=== PATIENT | male | born 1950 | race Caucasian/White ===

== ENCOUNTER 2018-05-28 11:02 | Outpatient (CLI) | payer MEDICARE, BC ==
--- NOTE | 2018-05-28 13:48 | MRI ---
MRI THORACIC SPINE WITHOUT CONTRAST: History Bilateral leg weakness. Unable to walk. COMPARISON: None. TECHNIQUE: Thoracic spine MRI is performed without intravenous Gadolinium administration. Multisequential, mult iplanar imaging is performed. FINDINGS: There is evidence of type I and type II Modic changes at multiple levels. Schmorl's nodes are noted. There is minimal spondylolisthesis throughout the thoracic spine. No significant STIR hyperintensi ty to suggest vertebral body edema from fracture. No evidence of ligamentous injury. Visualized mediastinal structures and lung parenchyma are unremarkable. Visualized solid organs are also unremarkable. Conus medullaris terminates at the inferior aspect of T12. There is T2 hyperintensity involving the thoracic cord at the T11-T12 level. Additionally, there is T2 hyperintensity involving the thoracic cord at the T10-T11 level. The remainder of the thoracic co rd has appropriate signal intensity. T1-T2: Small left and right paracentral disk bulges. No significant central canal stenosis. T2-T3, T3-T4: Minimal left and right paracentral disk bulges. No significant central canal stenosis . T4-T5. No significant central canal stenosis. T5-T6: Minimal flattening of the right aspect of the cord due to disk material. T6-T7: No significant central canal stenosis. T7-T8, T8-T9: Mild central canal stenosis due to disk material. T9-T10: Moderate central canal stenosis due to degenerative change. T10-T11: Severe central canal stenosis due to degenerative change. T11-T12, severe central canal st enosis due to degenerative change. T12-L1: No significant central canal stenosis. There is significant foraminal narrowing throughout the thoracic spine. IMPRESSION: Significant central canal stenosis of the thoracic spine at T10-T11 and T11-T12 where there is evide nce of T2 hyperintensity suggesting cord malacia. POS: [facility]
== END 2018-05-28 11:03 | disposition home or self-care (01) ==
LOC: MRI 11:02
PROVIDERS: ATTEND Orthopaedic Surgery
DX: M54.6 Pain in thoracic spine (principal); M48.04 Spinal stenosis, thoracic region
CPT/HCPCS: 72146

== ENCOUNTER 2018-09-12 05:11 | Inpatient (IN) | payer MEDICARE, BC ==
[2018-09-12 06:32] LABS: #Basophils 0.1 thou/uL (0.0-0.2); #Lymphocytes 1.4 thou/uL (1.20-3.40); #Monocytes 1.1 thou/uL (0.11-0.59); #Neutrophils 10.3 thou/uL (1.40-6.50); %Basophils 0.4 % (0.0-1.0); %Eosinophils 0.4 % (0.0-10.0); %Lymphocytes 11.1 % (21.0-51.0); %Monocytes 8.8 % (0.0-10.0); %Neutrophils 79.4 % (42.0-75.0); Hemoglobin 12.5 g/dL (14.0-18.0); Mean Corpuscular HGB CONC 32.5 g/dL (32.0-36.0); Mean Corpuscular Volume 95.2 fL (78.0-98.0); Mean Platelet Volume 6.1 fL (7.4-10.4); Platelet Count 335 thou/uL (130-400); RBC Distribution Width 12.8 % (11.5-14.5); Red Blood Cell (RBC) Count 4.04 mill/uL (4.70-6.10); White Blood Cell (WBC) Count 12.9 thou/uL (4.8-10.8)
[2018-09-12 06:49] LABS: ALT (SGPT) 19 U/L (8-55); AST (SGOT) 22 U/L (5-34); Albumin 4.4 g/dL (3.4-4.8); Alkaline Phosphatase 84 U/L (40-150); Anion Gap 15 mmol/L (10-20); BUN (Urea Nitrogen) 13 mg/dL (8.4-25.7); Bilirubin, Total 0.8 mg/dL (0.2-1.2); Calc. Creatinine Clearance 0 mL/min (70-130); Calcium 9.6 mg/dL (7.8-10.44); Carbon Dioxide 24 mmol/L (23-31); Chloride 100 mmol/L (98-107); Estimated GFR-MDRD 79; Globulin 3.8 g/dL (2.4-3.5); Glucose 126 mg/dL (80-115); Potassium 3.8 mmol/L (3.5-5.1); Protein, Total 8.2 g/dL (5.8-8.1); Sodium 135 mmol/L (136-145)
[2018-09-12 07:32] LABS: Bilirubin Negative (Negative); Blood, Urine Moderate (Negative); Clarity CLOUDY (Clear); Glucose, Urine (Dipstick) Negative (Negative); Leukocyte Large (Negative); Nitrite Positive (Negative); Protein, Urine (Dipstick) 30 mg/dL (Neg-Trace); Specific Gravity, Urine 1.017 (1.002-1.036); pH, Urine 7.5 (5.0-9.0)
[2018-09-12 07:35] LABS: Bacteria/HPF 4+ HPF (None Seen); Hyaline Casts/LPF 0-3 HYALINE CAST LPF (0-3 Hyaline); Pathc Cast-AUWi Flag 0.29 (0-2.49); RBC/HPF 21-50 HPF (0-3); Squamous Epithelial None Seen HPF (0-3)
[2018-09-12] MEDS ORDERED: Acetaminophen 325 MG TAB PO PRN (08:00)
[2018-09-12] MEDS ORDERED: Ondansetron PF 4 MG/2 ML Vial IVP PRN ×2 (08:00→11:39)
[2018-09-12] MEDS ORDERED: Ondansetron ODT 4 MG TAB SL PRN (08:00)
[2018-09-12] MEDS ORDERED: cefTRIAXone\\ROCEPHIN 2 GM VIAL ONE (08:37)
[2018-09-12] MEDS ORDERED: Ketorolac Tromethamine 30 MG/ML VIAL ONE (08:50)
[2018-09-12] MEDS ORDERED: Acetaminophen 500 MG TAB ONE (09:09)
[2018-09-12] MEDS ORDERED: Phenazopyridine HCl 97.5 MG TABLET PO SCH ×2 (09:15→13:00)
[2018-09-12 11:18] LABS: Troponin I 0.011 ng/mL (< 0.028)
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
[2018-09-12] MEDS ORDERED: Dextrose 50% Abboject 50 ML SYRINGE SLOW IVP PRN (11:39)
[2018-09-12] MEDS ORDERED: Sodium Chloride 0.65% Nasal 44 ML BOT EA NARE PRN (11:39)
[2018-09-12] MEDS ORDERED: Dextrose 5% in Water 1,000 ML IV PRN (11:39)
[2018-09-12] MEDS ORDERED: HumaLOG 300 UNITS/3 ML VIAL SC PRN ×2 (11:39)
[2018-09-12] MEDS ORDERED: Bisacodyl 5 MG TAB PO PRN (11:39)
[2018-09-12] MEDS ORDERED: Labetalol HCl 100 MG/20 ML VIAL SLOW IVP PRN (11:39)
[2018-09-12] MEDS ORDERED: Cepastat Lozenges 1 LOZ PO PRN (11:39)
[2018-09-12] MEDS ORDERED: Simethicone Chewable 80 MG TAB PO PRN (11:39)
[2018-09-12] MEDS ORDERED: Senokot S 8.6-50 MG TAB PO PRN (11:39)
[2018-09-12] MEDS ORDERED: Artificial Tears 18 DROP/0.9 ML EA EYE PRN (11:39)
[2018-09-12] MEDS ORDERED: Ondansetron ODT 4 MG TAB PO PRN (11:39)
[2018-09-12] MEDS ORDERED: HYDROcodone/Acetaminophen 5/325 mg Tablet PO PRN ×2 (11:39→13:04)
[2018-09-12] MEDS ORDERED: Calcium Carbonate 500 MG ChewTAB PO PRN (11:39)
[2018-09-12] MEDS ORDERED: Bisacodyl 10 MG SUPP PR PRN (11:39)
[2018-09-12] MEDS ORDERED: Eucerin (Mineral Oil/Petrolatum,White) 30 gm Jar TOP PRN (11:39)
[2018-09-12] MEDS ORDERED: Zolpidem Tartrate 5 MG TAB PO PRN (11:39)
[2018-09-12] MEDS ORDERED: Diabetic Tussin 200 MG/10 ML UDCUP PO PRN (11:39)
[2018-09-12] MEDS: Acetaminophen 325 MG TAB PO PRN (13:58)
[2018-09-12] MEDS ORDERED: Pramipexole Di-HCl 0.125 MG TAB PO SCH ×2 (14:15→21:00)
[2018-09-12] MEDS: Sodium Chloride 0.9% 1,000 ML IV SCH (15:02)
[2018-09-12] MEDS: Phenazopyridine HCl 97.5 MG TABLET PO SCH (16:08)
[2018-09-12] MEDS: HYDROcodone/Acetaminophen 5/325 mg Tablet PO PRN ×2 (16:08→20:50)
[2018-09-12] MEDS: Ibuprofen 200 MG TAB PO PRN (16:08)
[2018-09-12] MEDS: Pramipexole Di-HCl 0.25 MG TAB PO SCH (20:49)
[2018-09-12] MEDS: Atorvastatin Calcium 40 MG TAB PO SCH (20:49)
[2018-09-12] MEDS ORDERED: Cyclobenzaprine 10 MG TAB PO PRN (22:21)
[2018-09-13] MEDS ORDERED: Succinylcholine Chloride 20 MG/ML 10 ml SYRINGE FS ONE (00:03)
[2018-09-13] MEDS ORDERED: Etomidate 20 MG/10 ML VIAL ONE (00:03)
[2018-09-13] MEDS ORDERED: Lorazepam 2 MG/ML VIAL ONE ×2 (00:33→00:51)
[2018-09-13] MEDS: Ibuprofen 200 MG TAB PO PRN (00:40)
[2018-09-13 01:26] LABS: Hemoglobin 12.9 g/dL (14.0-18.0); Mean Corpuscular HGB CONC 32.1 g/dL (32.0-36.0); Mean Corpuscular Hemoglobin 31.5 pg (27.0-31.0); Mean Corpuscular Volume 98.2 fL (78.0-98.0); Mean Platelet Volume 6.7 fL (7.4-10.4); Platelet Count 544 thou/uL (130-400); RBC Distribution Width 13.1 % (11.5-14.5); White Blood Cell (WBC) Count 28.1 thou/uL (4.8-10.8)
[2018-09-13 01:39] LABS: Base Excess (BEa) -5.6 mEq/L (-2.0 to +3.0); CO2 Tension 39.6 mmHg (35.0-45.0); Carboxyhemoglobin (COHb) 0.8 gm% (0.0-3.0); Hemoglobin (Hb) 12.7 g/dL (14.0-18.0); O2 Tension (PaO2) 158.2 mmHg (> 80.0); Potassium - ABG Lab 3.81 mmol/L (3.70-5.30); pH, Arterial 7.32 (7.35-7.45)
[2018-09-13 01:43] LABS: Band 9 % (5-11); Hypochromia SLIGHT = 6-15 cells (100X) (0-5/hpf); Lymphocytes 17 % (21-51); MDiff Complete? YES; Monocytes 13 % (0-10); Neutrophil 61 % (42-75); PLT Morphology Comment Appears Increased
[2018-09-13 01:45] LABS: Puncture Site FEMORAL
[2018-09-13] MEDS ORDERED: Fentanyl BOLUS 250 ML IVPB PRN (01:51)
[2018-09-13] MEDS ORDERED: DISCONTINUE PREVIOUS NARCOTIC PAIN MEDICATIONS AND BENZODIAZEPINES FS SCH (01:51)
[2018-09-13] MEDS ORDERED: Propofol BOLUS 1,000 MG/100 ML VIAL IV PRN (01:51)
--- NOTE | 2018-09-13 01:55 | PDOC.EVN ---
Event Note - Event Note Event Note: Attending Critical Care Note Called to [facility] room by code blue alarm. Found team at bedside, bag-mask ventilation of patient. Monitors showing sinue tachycardia, and elevated blood pressure. Patient appeared to be having Generalized seizure. 2mg Ativan given IM. Patient breathing but unresponsive to commands or pain. RSI initiated. After a failed intubation attempt byDr Grande, Dr Cheatham was sucessful placement of ET tube via glidoscope. Placement confirmed with bilateral breath sounds, CO2 colorimic change. Sofiya cervantessferred to CCU. CXR viewed to confirm position of ET tube. [facility] Hospitalist Attending was present and providing care. See resident note Total Time approximately 30 min (~[id number]). See resident physician note/code record for further details.
[2018-09-13] MEDS ORDERED: Multivitamins, Adult 10 ML, Thiamine HCl 100 MG, Folic Acid 1 MG in Dextrose 5 %-0.45 %... IV SCH (02:00)
[2018-09-13] MEDS ORDERED: levETIRAcetam In NaCl (Iso-Os) 1,000 MG in Premix Bag 1 BAG IVPB SCH ×2 (02:00)
[2018-09-13 02:02] LABS: Albumin 4.3 g/dL (3.4-4.8)
[2018-09-13 02:03] LABS: Chloride 100 mmol/L (98-107); Potassium 3.8 mmol/L (3.5-5.1); Sodium 136 mmol/L (136-145)
[2018-09-13 02:04] LABS: Calcium 9.3 mg/dL (7.8-10.44); Magnesium 1.5 mg/dL (1.6-2.6)
[2018-09-13 02:05] LABS: Globulin 4.1 g/dL (2.4-3.5); Glucose 163 mg/dL (80-115); Protein, Total 8.4 g/dL (5.8-8.1)
[2018-09-13 02:06] LABS: Anion Gap 23 mmol/L (10-20); Carbon Dioxide 17 mmol/L (23-31)
[2018-09-13 02:07] LABS: Bilirubin, Total 0.6 mg/dL (0.2-1.2)
[2018-09-13 02:08] LABS: Alkaline Phosphatase 84 U/L (40-150)
[2018-09-13 02:09] LABS: BUN (Urea Nitrogen) 22 mg/dL (8.4-25.7)
[2018-09-13] MEDS: fentaNYL Citrate/PF 2,000 MCG in Sodium Chloride 0.9% 60 ML IV SCH ×2 (02:09→20:08)
[2018-09-13 02:10] LABS: AST (SGOT) 40 U/L (5-34)
[2018-09-13] MEDS: Sodium Chloride 0.9% 1,000 ML IV SCH ×5 (02:10→19:11)
[2018-09-13 02:11] LABS: Band 9 % (5-11); Hemoglobin 12.5 g/dL (14.0-18.0); Hypochromia SLIGHT = 6-15 cells (100X) (0-5/hpf); Lymphocytes 8 % (21-51); MDiff Complete? YES; Mean Corpuscular HGB CONC 32.5 g/dL (32.0-36.0); Mean Corpuscular Hemoglobin 31.4 pg (27.0-31.0); Mean Corpuscular Volume 96.7 fL (78.0-98.0); Monocytes 4 % (0-10); Neutrophil 79 % (42-75); PLT Morphology Comment Appears Increased; Platelet Count 507 thou/uL (130-400); RBC Distribution Width 12.9 % (11.5-14.5); Red Blood Cell (RBC) Count 3.98 mill/uL (4.70-6.10); White Blood Cell (WBC) Count 19.1 thou/uL (4.8-10.8)
[2018-09-13 02:11] LABS: ALT (SGPT) 25 U/L (8-55); Calc. Creatinine Clearance 71 mL/min (70-130); Estimated GFR-MDRD 44
[2018-09-13] MEDS ORDERED: Sodium Chloride 0.9% 1,000 ML IV SCH (02:30)
[2018-09-13] MEDS: Acetaminophen 1,000 MG in Premix Bag 1 BAG IVPB PRN ×2 (02:39→23:18)
[2018-09-13] MEDS: Propofol 1,000 MG/100 ML VIAL IV PRN ×3 (02:45→17:42)
[2018-09-13] MEDS: Vancomycin HCl 1.75 GM in Sodium Chloride 0.9% 500 ML IVPB SCH ×2 (02:46→15:10)
[2018-09-13 02:47] LABS: Lactic Acid 12.5 mmol/L (0.5-2.2)
--- NOTE | 2018-09-13 02:54 | PDOC.EVN ---
Event Note - Event Note Event Note: Yoselin wang was called @ ~12:46Am Patient is admitted for sepsis due to UTI Upon arrival family medicine team is there and patient is being bagged for intubation. Per nursing staff patient was not breathing right and thinks that patient was having withdrawal seizures. Nurse states that CPR was initiated. But " NO one knows if code was run" We dont know how long CPR was performed, who stopped CPR and if any medication was given. Per Family med attending patient was in respiratory failure needing intubation so they intubated and I took over from there. On evaluation: patient has a pulse. in respiratory failure and being bagged for intubation. Vitals: BP >175 systolic. Sinus tachy. Glucose is 140's per verbal report. Assessment/plan. 1. Get stat ABG 2. Stat trops 3. cultures 4. Keppra 5. neuro checks, seizure checks 6. Central line then start levophed if BP is less than 90 systolic 7. NS IV fluids 8. tylenol 9. Consult ICU sql server consultant, consult cardiology 10. Echo ordered 11. Get CT of head when patient is stable and follow up stat labs in the AM 13. sedation protocol. Hold propofol when MAP is less than 55. Follow up events: I still don't have troponins, lactic acid and time is (2:56am) . I have obtained EKG which shows sinus tachy without any ischemic changes at this time. WBC is back and shows leukocytosis. Patient Temp is 103. ABG performed showed: ph 7.3, pco2 39.6 p02 158.2 critical care time ~ 80mins
--- NOTE | 2018-09-13 03:03 | PDOC.CNTRL ---
<Alvaro Grande - Last Filed: 09/13/18 03:01> Central Line Procedure Note - Procedure Date: 09/13/18 Time: 02:30 - PreProcedure Diagnosis: Sepsis secondary to UTI - PostProcedure Diagnosis: Sepsis secondary to UTI - Description Focused site: femoral vein: Right Ultrasound guidance: Yes Patient tolerated procedure: well Procedure in Details: INDICATION: hypotension PROCEDURE ABLE SEAMAN: Alvaro Grande MD, Yossi Morelos MD ATTENDING PHYSICIAN: Kings Mari MD was present, supervised, and assisted in procedure Ultrasound Used: Y PROCEDURE SUMMARY: The [facility] Central Line Insertion Practices form was completed by an independent observer (Tamy Grande Neal) starting with the first handwash prior to starting sterile technique. A time out was performed. My hands were washed immediately prior to the procedure. I wore a surgical cap, mask, sterile gown and sterile gloves throughout the procedure. The RIGHT inguinal region was prepped using chlorhexidine scrub and draped in sterile fashion using a three quarter sheet drape. The femoral pulse was identified. Anesthesia was achieved using 1% lidocaine. Palpating the femoral pulse throughout the procedure, the introducer needle was inserted Medial to the femoral artery, inferior to the inguinal crease and into the Femoral vein. Venous blood was withdrawn. The syringe was removed and a guidewire was advanced into the introducer needle. A small incision was made at the skin surface with a scalpel and the introducer needle was exchanged for a dilator over the guidewire. After appropriate dilation was obtained, the dilator was exchanged over the wire for a triple lumen central venous catheter. The wire was removed and the catheter was sutured in place. A sterile sorbaview shield was placed over the catheter at the insertion site. The patient tolerated the procedure without any hemodynamic compromise. At time of procedure completion, all ports aspirated and flushed properly. Estimated blood loss is 3ml. <Kings Mari - Last Filed: 09/13/18 09:04> Attending Addendum - Attending Addendum Date/Time: 09/13/18 0904 Anesthesia was achieved by propofol, fentanyl, in addition to the lidocaine.
--- NOTE | 2018-09-13 03:50 | PDOC.EVN ---
Event Note - Event Note Event Note: CODE BLUE NOTE Code Atul called to patient's room at 00:46 due to patient being apneic and pulseless with suspected seizure activity. Residents arrived to room at 00:50 with chest compressions in progress. Patient then became aroused and appeared to have seizure like activity. However, patient was given Ativan IM due to suspected alcohol withdrawal seizures and was unable to protect his airway with agonal breathing. It as then decided to intubate the patient for airway protection. 1st attempt by Dr. Marco Antonio Grande was unsuccessful with the glydescope. 1st attempt by myself was successful with glydescope. Size 8 ET tube was secured in place at position of 24 cm at the teeth. Placement confirmed by color capnography change, bilateral breath sounds. Confirmatory CXR was taken and showed adequate placement. Patient was then immediately transferred to the ICU for higher level of care management. Please refer to procedure note below as well as full code record for further information. INDICATION: Respiratory Distress without ability to maintain airway PROCEDURE MEDIA ACCOUNT EXECUTIVE: Yossi Morelos MD ATTENDING PHYSICIAN: Dr. Kings Mari In Attendance CONSENT: Consent was unable to be obtained due to the emergent nature. PROCEDURE SUMMARY: A time out was performed. My hands were washed immediately prior to the procedure. Gloves were worn during the entire procedure. The patient was placed on a ekg monitor including continuous pulse oximetry. Rapid Sequence Intubation was conducted. The patient received 10 mg of etomidate and 100 mg of succinylcholine for adequate paralysis. Cricoid pressure was maintained from time induction agent was given to time of cuff balloon inflation. Using a glidescope and a size 8 endotracheal tube with stylet, the patient was intubated on the 1st attempt by myself. The stylet was removed and cuff balloon was inflated. Appropriate endotracheal tube position was confirmed by direct visualization of vocal cord passage, fogging of the tube, CO2 colometric indicator and symmetric breath sounds. The tube was secured at 24 cm at the teeth. Post intubation chest x-ray confirms placement within trachea.
[2018-09-13 05:44] LABS: Lactic Acid 1.1 mmol/L (0.5-2.2)
[2018-09-13] MEDS ORDERED: Magnesium Sulfate 3 GM in Sodium Chloride 0.9% 100 ML IVPB SCH (06:45)
[2018-09-13] MEDS: Piperacillin/Tazobactam 3.375 GM in Sodium Chloride 0.9% 100 ML IVPB SCH ×3 (07:06→17:41)
[2018-09-13] MEDS ORDERED: Furosemide 40 MG TAB PO SCH (07:30)
--- NOTE | 2018-09-13 07:55 | RAD ---
PRELIMINARY REPORT/[facility]/EMERGENTY AFTER-HOURS PROCEDURE XR Chest, 1 View EXAM DATE/TIME: 09/13/2018 12:16 AM CLINICAL HISTORY: 68 years old, male; SOB; Respiratory distress; S/P intubation TECHNIQUE: XR of the chest, 1 view. COMPARISON: No relevant prior studies available. FINDINGS: Tubes, catheters and devices: Tip of endotracheal tube located approximately 3.5 cm above the fady. Nasogastric tube enters the stomach but tip not included on the image. Lungs: No alveolar infiltrate. Pleural space: No pleural fluid collection. Heart/Mediastinum: Expiratory film with transverse orientation of the cardiac silhouette. Bones/joints: Unremarkable. IMPRESSION: 1. No alveolar infiltrate. 2. Tip of endotracheal tube located approximately 3.5 cm above the fady. Thank you for allowing us to participate in the care of your patient. Dictated and Authenticated by: Gavin Hyman MD 09/13/2018 1:59 AM Central Time ([place] & [place]) AP VIEW CHEST: Date: 09/13/18 COMPARISON: 09/01/18. FINDINGS: AP view of chest demonstrates nasogastric and endotracheal tubes to be in place. There is suboptimal inspiratory effort. Cardiomegaly and pulmonary vascular congestion seen. No evidence of effusions, pn eumonia, or pneumothorax seen. IMPRESSION: 1. Suboptimal inspiratory effort. 2. Endotracheal tube in good position. QA POS: [facility]
[2018-09-13] MEDS ORDERED: metFORMIN 500 MG TAB PO SCH (08:00)
[2018-09-13] MEDS: Pantoprazole 40 MG VIAL IVP SCH (08:55)
[2018-09-13] MEDS: Phenazopyridine HCl 97.5 MG TABLET PO SCH ×3 (08:56→17:44)
[2018-09-13] MEDS: Ezetimibe 10 MG TAB PO SCH (08:57)
[2018-09-13] MEDS: Pramipexole Di-HCl 0.25 MG TAB PO SCH ×2 (08:57→21:00)
[2018-09-13] MEDS: Saccharomyces boulardii 250 MG CAP PO SCH (08:57)
[2018-09-13] MEDS: Fish Oil 1,000 MG CAP PO SCH (08:57)
[2018-09-13] MEDS: Tamsulosin HCl 0.4 MG CAP PO SCH (08:57)
[2018-09-13] MEDS: Finasteride 5 MG TAB PO SCH (08:57)
[2018-09-13] MEDS: Polyethylene Glycol 3350 17 GM Packet PO SCH (08:58)
--- NOTE | 2018-09-13 08:58 | RAD ---
CHEST ONE VIEW PORTABLE: History: 68-year-old male with history of respiratory insuffiency. Intubated patient. Comparison: 09-13-18 FINDINGS: Endotracheal tube has descended into the right mainstem bronchus and should probably be pulled back s everal centimeters to enter the trachea. NG tube is in place. There is cardiomegaly. There is some bi lateral vascular congestion with linear and interstitial parenchymal changes in the right upper perih ilar region and left lower perihilar region, these parenchymal changes appear stable. IMPRESSION: Endotracheal tube in the right mainstem bronchus. This should be pulled back approximately 4 cm to mo re optimally enter the distal trachea. Stable linear and parenchymal changes, particularly in the rig ht suprahilar region and left infrahilar region with bilateral vascular congestion. Findings were discussed with nurse, Humaira, at 8:43 a.m. Yoselin FRANK
[2018-09-13] MEDS ORDERED: cefTRIAXone\\ROCEPHIN 2 GM in Sodium Chloride 0.9% 100 ML IVPB SCH (09:00)
[2018-09-13] MEDS ORDERED: Amlodipine 5 MG TAB PO SCH (09:00)
[2018-09-13] MEDS: Enoxaparin Sodium 40 MG/0.4 ML SYRINGE SC SCH ×2 (09:00→09:37)
[2018-09-13] MEDS: Oxybutynin 5 MG TAB PO SCH (09:09)
[2018-09-13 09:24] LABS: Troponin I 0.508 ng/mL (< 0.028)
--- NOTE | 2018-09-13 09:33 | PDOC.PN ---
- Subjective Encounter Start Date: 09/13/18 Encounter Start Time: 09:00 -: old records requested/rev last night pt had seizure, code blue was called, he required intubation, his BP is now low, he is on vent - Objective Resuscitation Status: Resuscitation Status FULL:Full Resuscitation MAR Reviewed: Yes Vital Signs & Weight: Vital Signs (12 hours) Temp Pulse Resp Pulse Ox 09/13/18 08:00 17 09/13/18 07:47 93 L 09/13/18 07:05 60 09/13/18 07:00 98.5 F 09/13/18 06:00 20 09/13/18 04:00 98.4 F 17 09/13/18 02:00 103.3 F H 09/13/18 01:45 16 100 09/13/18 01:15 78 Weight Admit Weight 244 lb 0.827 oz Weight 244 lb 3 oz Most Recent Monitor Data Heart Rate from ECG 67 NIBP 89/75 NIBP BP-Mean 79 Respiration from ECG 21 SpO2 94 I&O: 09/12/18 09/13/18 09/14/18 06:59 06:59 06:59 Intake Total 6165.0 Output Total 990 35 Balance 5175.0 -35 Result Diagrams: 09/13/18 01:43 09/13/18 01:40 Additional Labs: Accuchecks 09/13/18 09/12/18 09/12/18 00:47 20:32 17:09 POC Glucose 105 119 H 114 H 09/12/18 12:11 POC Glucose 122 H Radiology Reviewed by me: Yes (chest xray reviewed) EKG Reviewed by me: Yes (nsr) Phys Exam - Physical Examination Constitutional: NAD intubated HEENT: PERRLA, moist MMs, sclera anicteric Neck: no JVD, supple Respiratory: no wheezing, no rales, no rhonchi Cardiovascular: RRR, no significant murmur, no rub Gastrointestinal: soft, no distention, positive bowel sounds Musculoskeletal: no edema, pulses present scd+ unable to assess Lymphatic: no nodes Deviation from normal: unable to assess due to intubated status Skin: no rash, normal turgor Dx/Plan (1) Acute respiratory failure with hypoxia Code(s): J96.01 - ACUTE RESPIRATORY FAILURE WITH HYPOXIA Status: Acute (2) Acute kidney failure Status: Acute (3) Demand ischemia of myocardium Code(s): I24.8 - OTHER FORMS OF ACUTE ISCHEMIC HEART DISEASE Status: Acute (4) Hypomagnesemia Code(s): E83.42 - HYPOMAGNESEMIA Status: Acute (5) Lactic acidosis Code(s): E87.2 - ACIDOSIS Status: Acute (6) Seizure Code(s): R56.9 - UNSPECIFIED CONVULSIONS Status: Acute (7) Sepsis with acute organ dysfunction Code(s): A41.9 - SEPSIS, UNSPECIFIED ORGANISM; R65.20 - SEVERE SEPSIS WITHOUT SEPTIC SHOCK Status: Acute (8) UTI (urinary tract infection) due to urinary indwelling catheter Code(s): T83.511A - I/I REACT D/T INDWELLING URETHRAL CATHETER, INIT; N39.0 - URINARY TRACT INFECTION, SITE NOT SPECIFIED Status: Acute (9) Alcohol abuse Code(s): F10.10 - ALCOHOL ABUSE, UNCOMPLICATED Status: Chronic (10) Anxiety and depression Code(s): F41.9 - ANXIETY DISORDER, UNSPECIFIED; F32.9 - MAJOR DEPRESSIVE DISORDER, SINGLE EPISODE, UNSPECIFIED Status: Chronic (11) Diabetes type 2, controlled Code(s): E11.9 - TYPE 2 DIABETES MELLITUS WITHOUT COMPLICATIONS Status: Chronic (12) Dyslipidemia Code(s): E78.5 - HYPERLIPIDEMIA, UNSPECIFIED Status: Chronic (13) Hypertension Code(s): I10 - ESSENTIAL (PRIMARY) HYPERTENSION Status: Chronic (14) Obesity (BMI 30.0-34.9) Code(s): E66.9 - OBESITY, UNSPECIFIED Status: Chronic (15) Restless leg syndrome Status: Chronic (16) Urinary retention due to benign prostatic hyperplasia Code(s): N40.1 - BENIGN PROSTATIC HYPERPLASIA WITH LOWER URINARY TRACT SYMP; R33.8 - OTHER RETENTION OF URINE Status: Chronic - Plan cont current plan of care, continue antibiotics, respiratory therapy * ventilator management as per pulmonary * continue vancomycin and zosyn * follow up on culture * cardiology, pulmonary on case * medication reviewed as below * symptomatic treatment. * continue Keppra * continue IVF * replace magnesium sulfate Review of Systems - Review of Systems Other: unable to review due to intubated status - Medications/Allergies Allergies/Adverse Reactions: Allergies Allergy/AdvReac Type Severity Reaction Status Date / Time tramadol Allergy Verified 09/12/18 13:29 Medications: Current Medications Acetaminophen (Tylenol) 650 mg PO Q4H PRN PRN Reason: Headache/Fever/Mild Pain (1-3) Last Admin: 09/12/18 13:58 Dose: 650 mg Hydrocodone Bitart/Acetaminophen ([place] 5/325) 1 tab PO Q4H PRN PRN Reason: Moderate Pain (4-6) Hydrocodone Bitart/Acetaminophen ([place] 5/325) 2 tab PO Q4H PRN PRN Reason: Severe Pain (7-10) Last Admin: 09/12/18 20:50 Dose: 2 tab Artificial Tears (Tears Naturale) 2 drop EA EYE PRN PRN PRN Reason: Dry Eyes Aspirin (Aspirin Chewable) 81 mg PO DAILY [facility] Last Admin: 09/13/18 08:57 Dose: Not Given Atorvastatin Calcium (Lipitor) 40 mg PO HS [facility] Last Admin: 09/12/18 20:49 Dose: 40 mg Bisacodyl (Dulcolax) 10 mg CO DAILYPRN PRN PRN Reason: Constipation Calcium Carbonate (Tums) 1,000 mg PO Q4H PRN PRN Reason: Heartburn or Indigestion Cyclobenzaprine HCl (Flexeril) 10 mg PO TIDPRN PRN PRN Reason: Muscle Spasm Last Admin: 09/12/18 22:25 Dose: 10 mg Dextrose/Water (Dextrose 50%) 25 gm SLOW IVP PRN PRN PRN Reason: Hypoglycemia Ezetimibe (Zetia) 10 mg PO DAILY [facility] Last Admin: 09/13/18 08:57 Dose: 10 mg Enoxaparin Sodium (Lovenox) 40 mg SC 0900 [facility] Last Admin: 09/13/18 09:00 Dose: Not Given Finasteride (Proscar) 5 mg PO DAILY [facility] Last Admin: 09/13/18 08:57 Dose: 5 mg Fish Oil (Fish Oil) 1,000 mg PO DAILY [facility] Last Admin: 09/13/18 08:57 Dose: 1,000 mg Glucagon (Glucagon) 1 mg IM PRN PRN PRN Reason: Hypoglycemia Guaifenesin (Robitussin Sf) 200 mg PO Q4H PRN PRN Reason: Cough Hydralazine HCl (Apresoline) 10 mg SLOW IVP Q4H PRN PRN Reason: SBP > 180 and HR < 70 Dextrose/Water (D5w) 1,000 mls @ 0 mls/hr IV .Q0M PRN PRN Reason: Hypoglycemia Multivitamins 10 ml/ Thiamine HCl 100 mg/ Folic Acid 1 mg/Dextrose/Sodium Chloride 1,011.2 mls @ 126.4 mls/hr IV DAILY [facility] Multivitamins 10 ml/ Thiamine HCl 100 mg/ Folic Acid 1 mg/Dextrose/Sodium Chloride 1,011.2 mls @ 126.4 mls/hr IV NOW [facility] Stop: 09/13/18 09:59 Last Admin: 09/13/18 02:39 Dose: 1,011.2 mls Piperacillin Sod/Tazobactam (Sod 3.375 gm/ Sodium Chloride) 100 mls @ 200 mls/ hr IVPB Q6HR [facility] Last Admin: 09/13/18 07:06 Dose: 100 mls Vancomycin HCl 1.75 gm/ Sodium (Chloride) 500 mls @ 250 mls/hr IVPB 0300,1500 [facility] Last Admin: 09/13/18 02:46 Dose: 500 mls Acetaminophen 1,000 mg/ Device 100 mls @ 400 mls/hr IVPB Q6H PRN PRN Reason: Fever > 101 Stop: 09/14/18 01:34 Last Admin: 09/13/18 02:39 Dose: 100 mls Levetiracetam 500 mg/ Device 100 mls @ 200 mls/hr IVPB BID [facility] Last Admin: 09/13/18 09:02 Dose: 100 mls Fentanyl Citrate 2,000 mcg/ (Sodium Chloride) 100 mls @ 0 mls/hr IV INF [facility]; Protocol Stop: 10/13/18 01:51 Last Admin: 09/13/18 02:09 Dose: 100 mls Fentanyl Citrate (Fentanyl Bolus) 250 mls @ 0 mls/hr IVPB PRN PRN PRN Reason: Breakthrough pain/agitation Stop: 10/13/18 01:51 Sodium Chloride (Normal Saline 0.9%) 1,000 mls @ 100 mls/hr IV .Q10H [facility] Last Admin: 09/13/18 07:41 Dose: 1,000 mls Magnesium Sulfate 3 gm/ Sodium (Chloride) 106 mls @ 100 mls/hr IVPB NOW [facility] Stop: 09/13/18 11:00 Last Admin: 09/13/18 07:40 Dose: 106 mls Insulin Human Lispro (Humalog) 0 units SC .MODERATE SLIDING SC PRN PRN Reason: Moderate Correctional Scale Insulin Human Lispro (Humalog) 0 units SC .BEDTIME SLIDING SC PRN PRN Reason: Bedtime Correctional Scale Labetalol HCl (Normodyne) 20 mg SLOW IVP Q4H PRN PRN Reason: SBP > 180 and HR >/= 70 Loperamide HCl (Imodium) 2 mg PO PRN PRN PRN Reason: Diarrhea/Loose Stools Lorazepam (Ativan) 2 mg SLOW IVP Q2H PRN PRN Reason: Anxiety/Agitation Lorazepam (Ativan) 2 mg SLOW IVP Q1H PRN PRN Reason: Breakthrough agitation Stop: 10/13/18 01:51 Mineral Oil/White Petrolatum (Eucerin Cream) 0 gm TOP BIDPRN PRN PRN Reason: Dry Skin Miscellaneous Medication (Pharmacy To Dose) 0 each IVPB PRN PRN PRN Reason: [facility] Pharmacy to Dose Discontinue Previous Narcotic Pain Medications And Benzodiazepines 1 each FS .ONE [facility] Stop: 10/13/18 01:51 Ondansetron HCl (Zofran Odt) 4 mg PO Q6H PRN PRN Reason: Nausea/Vomiting Ondansetron HCl (Zofran) 4 mg IVP Q6H PRN PRN Reason: Nausea/Vomiting Oxybutynin Chloride (Ditropan) 5 mg PO DAILY [facility] Last Admin: 09/13/18 09:09 Dose: 5 mg Pantoprazole Sodium (Protonix) 40 mg IVP DAILY [facility] Last Admin: 09/13/18 08:55 Dose: 40 mg Phenazopyridine HCl (Azo Standard) 195 mg PO [facility] Last Admin: 09/13/18 08:56 Dose: 195 mg Polyethylene Glycol (Miralax) 17 gm PO DAILY [facility] Last Admin: 09/13/18 08:58 Dose: Not Given Pramipexole Dihydrochloride (Mirapex) 0.25 mg PO BID [facility] Last Admin: 09/13/18 08:57 Dose: 0.25 mg Propofol (Diprivan) 1,000 mg IV INF PRN; Protocol PRN Reason: TO ACHIEVE GOAL RASS Stop: 10/13/18 01:51 Last Admin: 09/13/18 08:55 Dose: 1,000 mg Propofol (Diprivan Bolus) 20 mg IV Q5MIN PRN PRN Reason: BREAKTHROUGH AGITATION Stop: 10/13/18 01:51 Saccharomyces Boulardii (Florastor) 250 mg PO DAILY [facility] Last Admin: 09/13/18 08:57 Dose: 250 mg Senna/Docusate Sodium (Senokot S) 2 tab PO BID PRN PRN Reason: Constipation Simethicone (Mylicon Chewable) 80 mg PO PCHS PRN PRN Reason: Gas Pain Sodium Chloride ([place] Nasal [place] 0.65%) 0 ml EA NARE QIDPRN PRN PRN Reason: Nasal Congestion Sodium Chloride (Flush - Normal Saline) 10 ml IVF Q12HR [facility] Last Admin: 09/13/18 08:58 Dose: 10 ml Sodium Chloride (Flush - Normal Saline) 10 ml IVF PRN PRN PRN Reason: Saline Flush Tamsulosin HCl (Flomax) 0.4 mg PO DAILY [facility] Last Admin: 09/13/18 08:57 Dose: 0.4 mg Throat Lozenges (Cepastat Lozenges) 1 john PO Q2H PRN PRN Reason: Sore Throat
[2018-09-13] MEDS: Lorazepam 2 MG/ML VIAL SLOW IVP PRN ×4 (10:40→23:22)
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
--- NOTE | 2018-09-13 17:34 | CT ---
HEAD CT WITHOUT CONTRAST: Date: 09/13/18 HISTORY: Possible seizure. Dragging right leg. Aphasia. COMPARISON: None. FINDINGS: No parenchymal hemorrhage. No extra-axial hematoma. No midline shift. Basilar cisterns are patent. Br ain volume, age-appropriate. Cortical anderson-white matter differentiation preserved. No evidence of hyd rocephalus. Mild mucosal thickening in the paranasal sinuses. Adequate mastoid air cell aeration. Luis M varium is intact. IMPRESSION: No acute intracranial process. POS: [facility]
[2018-09-13] MEDS: Atorvastatin Calcium 40 MG TAB PO SCH (21:00)
[2018-09-14] MEDS ORDERED: Vecuronium 10 MG VIAL ONE (01:08)
[2018-09-14] MEDS ORDERED: Sterile Water 10 ML ONE (01:08)
[2018-09-14 02:43] LABS: Actual Bicarbonate (HCO3a) 20.9 mEq/L (22-28); Base Excess (BEa) -4.4 mEq/L (-2.0 to +3.0); CO2 Tension 39.4 mmHg (35.0-45.0); O2 Tension (PaO2) 63.4 mmHg (> 80.0); pH, Arterial 7.34 (7.35-7.45)
[2018-09-14 02:44] LABS: Calcium, Ionized 1.12 mmol/L (1.12-1.30); Carboxyhemoglobin (COHb) 0.8 gm% (0.0-3.0); Hemoglobin (Hb) 10.7 g/dL (14.0-18.0); Potassium - ABG Lab 3.16 mmol/L (3.70-5.30)
[2018-09-14 02:45] LABS: Puncture Site L FEMORAL
[2018-09-14] MEDS: Vancomycin HCl 1.75 GM in Sodium Chloride 0.9% 500 ML IVPB SCH ×2 (03:57→15:32)
[2018-09-14] MEDS: Sodium Chloride 0.9% 1,000 ML IV SCH ×2 (04:04→13:56)
[2018-09-14] MEDS: Piperacillin/Tazobactam 3.375 GM in Sodium Chloride 0.9% 100 ML IVPB SCH ×4 (05:05→17:33)
[2018-09-14 05:51] LABS: #Basophils 0.1 thou/uL (0.0-0.2); #Eosinphils 0.1 thou/uL (0.0-0.7); #Lymphocytes 2.2 thou/uL (1.20-3.40); #Monocytes 1.7 thou/uL (0.11-0.59); #Neutrophils 10.3 thou/uL (1.40-6.50); %Basophils 0.4 % (0.0-1.0); %Eosinophils 0.5 % (0.0-10.0); %Lymphocytes 15.3 % (21.0-51.0); %Neutrophils 71.9 % (42.0-75.0); Hemoglobin 9.8 g/dL (14.0-18.0); Mean Corpuscular HGB CONC 31.4 g/dL (32.0-36.0); Mean Corpuscular Hemoglobin 30.7 pg (27.0-31.0); Mean Corpuscular Volume 97.7 fL (78.0-98.0); Mean Platelet Volume 6.7 fL (7.4-10.4); Platelet Count 395 thou/uL (130-400); RBC Distribution Width 13.4 % (11.5-14.5); White Blood Cell (WBC) Count 14.3 thou/uL (4.8-10.8)
[2018-09-14 06:24] LABS: Anion Gap 15 mmol/L (10-20); BUN (Urea Nitrogen) 32 mg/dL (8.4-25.7); Calc. Creatinine Clearance 69 mL/min (70-130); Calcium 8.4 mg/dL (7.8-10.44); Carbon Dioxide 19 mmol/L (23-31); Chloride 107 mmol/L (98-107); Estimated GFR-MDRD 40; Glucose 93 mg/dL (80-115); Potassium 3.3 mmol/L (3.5-5.1); Sodium 138 mmol/L (136-145)
[2018-09-14] MEDS ORDERED: CCU Electrolyte Replacement 1 EACH FS ONE (07:57)
[2018-09-14] MEDS ORDERED: Potassium Phosphate 9 MMOL in Sodium Chloride 0.9% 100 ML IVPB PRN (08:11)
[2018-09-14] MEDS ORDERED: Potassium Chloride 20 MEQ TAB PO PRN (08:11)
[2018-09-14] MEDS ORDERED: Potassium Phosphate 12 MMOL in Sodium Chloride 0.9% 250 ML 250 ML IV PRN (08:11)
[2018-09-14] MEDS ORDERED: Magnesium Oxide 400 MG TAB PO PRN ×2 (08:11)
[2018-09-14] MEDS ORDERED: Magnesium 2 GM/NS 0.9% 100 ML 2 GM in Premix Bag 1 BAG IVPB PRN (08:11)
[2018-09-14] MEDS ORDERED: Potassium Chloride 40 MEQ in Sodium Chloride 0.9% 250 ML 250 ML IVPB PRN (08:11)
[2018-09-14] MEDS ORDERED: Potassium Phosphate 15 MMOL in Sodium Chloride 0.9% 250 ML 250 ML IV PRN (08:11)
[2018-09-14] MEDS: Enoxaparin Sodium 40 MG/0.4 ML SYRINGE SC SCH (08:50)
[2018-09-14] MEDS: Ezetimibe 10 MG TAB PO SCH (08:51)
[2018-09-14] MEDS: Saccharomyces boulardii 250 MG CAP PO SCH (08:51)
[2018-09-14] MEDS: Tamsulosin HCl 0.4 MG CAP PO SCH (08:51)
[2018-09-14] MEDS: Phenazopyridine HCl 97.5 MG TABLET PO SCH ×3 (08:51→17:33)
[2018-09-14] MEDS: Finasteride 5 MG TAB PO SCH (08:51)
[2018-09-14] MEDS: Pramipexole Di-HCl 0.25 MG TAB PO SCH ×2 (08:51→21:12)
[2018-09-14] MEDS: Fish Oil 1,000 MG CAP PO SCH (08:51)
[2018-09-14] MEDS: Oxybutynin 5 MG TAB PO SCH (08:52)
[2018-09-14] MEDS: Pantoprazole 40 MG VIAL IVP SCH (09:03)
[2018-09-14] MEDS: Polyethylene Glycol 3350 17 GM Packet PO SCH (09:04)
--- NOTE | 2018-09-14 09:04 | PRG ---
DATE OF SERVICE: 09/14/2018 SUBJECTIVE: . PHYSICAL EXAMINATION: VITAL SIGNS: T-max of 100.4, pulse 61, blood pressure 132/67. . ASSESSMENT: . PLAN: 1. Continue piperacillin and vancomycin. 2. Not weanable at this time. 3. Replace potassium. 4. Continue other supportive care.
--- NOTE | 2018-09-14 09:16 | PDOC.PN ---
- Subjective Encounter Start Date: 09/14/18 Encounter Start Time: 09:00 Intubated. Nurse indicates he self-extubated last night. Did not tolerate it well. Re-intubated. - Objective Resuscitation Status: Resuscitation Status FULL:Full Resuscitation MAR Reviewed: Yes Vital Signs & Weight: Vital Signs (12 hours) Temp Pulse Resp BP Pulse Ox 09/14/18 08:00 18 09/14/18 07:54 97 09/14/18 07:00 97.6 F 63 09/14/18 06:00 25 H 09/14/18 04:00 98.5 F 22 H 09/14/18 02:11 74 09/14/18 02:00 17 09/14/18 00:55 70 99 09/14/18 00:00 100.4 F H 17 09/13/18 22:27 64 131/76 09/13/18 22:00 34 H Weight Admit Weight 244 lb 2.944 oz Weight 256 lb 2.834 oz Most Recent Monitor Data Heart Rate from ECG 57 NIBP 100/49 NIBP BP-Mean 66 Respiration from ECG 18 SpO2 97 I&O: 09/13/18 09/14/18 09/15/18 06:59 06:59 06:59 Intake Total 6165.0 4222 0 Output Total 990 1340 335 Balance 5175.0 2882 -335 Result Diagrams: 09/14/18 05:32 09/14/18 05:32 Additional Labs: Accuchecks 09/14/18 09/13/18 09/13/18 04:50 22:51 16:15 POC Glucose 90 90 98 09/13/18 08:54 POC Glucose 117 H Phys Exam - Physical Examination Constitutional: NAD Will open his eyes and respond slightly. Pupils constrict. Shallow breaths. No wheezes, but decreased BS at bases. Cardiovascular: RRR, no significant murmur Gastrointestinal: soft Distended. Hyper-resonant. Decreased BS. 1+ edema. Neurological: non-focal Dx/Plan (1) Acute kidney failure Status: Acute Comment: Worsening creatinine. Likely ATN from the code. Consult nephrology. Continue to monitor. Avoid nephrotoxins, renal dose meds. (2) Acute respiratory failure with hypoxia Code(s): J96.01 - ACUTE RESPIRATORY FAILURE WITH HYPOXIA Status: Acute Comment: Did not tolerate self-extubation. Followed by Pulmonary. Shallow breaths. Abdomen still a bit distended in spite of OG tube. Pulling Vt of 400 on CPAP. Some pulm edema on CXR, but BP still unstable. Cannot diurese agressively. (3) Demand ischemia of myocardium Code(s): I24.8 - OTHER FORMS OF ACUTE ISCHEMIC HEART DISEASE Status: Acute Comment: Modest. Cards following. EF 45%. (4) Hypomagnesemia Code(s): E83.42 - HYPOMAGNESEMIA Status: Acute (5) Lactic acidosis Code(s): E87.2 - ACIDOSIS Status: Acute Comment: Improved. (6) Seizure Code(s): R56.9 - UNSPECIFIED CONVULSIONS Status: Acute Comment: Possibly EtOH WD, but not entirely clear. On Keppra. (7) Sepsis with acute organ dysfunction Code(s): A41.9 - SEPSIS, UNSPECIFIED ORGANISM; R65.20 - SEVERE SEPSIS WITHOUT SEPTIC SHOCK Status: Acute Comment: Vanc, Zosyn, Rocephin. Likely source is the urinary tract. Bl cx with GPR likely contaminant. Continue to follow cultures. (8) UTI (urinary tract infection) due to urinary indwelling catheter Code(s): T83.511A - I/I REACT D/T INDWELLING URETHRAL CATHETER, INIT; N39.0 - URINARY TRACT INFECTION, SITE NOT SPECIFIED Status: Acute Comment: Vanc/ Roceph/Zosyn. Follow cultures. (9) Alcohol abuse Code(s): F10.10 - ALCOHOL ABUSE, UNCOMPLICATED Status: Chronic (10) Anxiety and depression Code(s): F41.9 - ANXIETY DISORDER, UNSPECIFIED; F32.9 - MAJOR DEPRESSIVE DISORDER, SINGLE EPISODE, UNSPECIFIED Status: Chronic (11) Diabetes type 2, controlled Code(s): E11.9 - TYPE 2 DIABETES MELLITUS WITHOUT COMPLICATIONS Status: Chronic Comment: SSI (12) Dyslipidemia Code(s): E78.5 - HYPERLIPIDEMIA, UNSPECIFIED Status: Chronic (13) Hypertension Code(s): I10 - ESSENTIAL (PRIMARY) HYPERTENSION Status: Chronic (14) Obesity (BMI 30.0-34.9) Code(s): E66.9 - OBESITY, UNSPECIFIED Status: Chronic (15) Urinary retention due to benign prostatic hyperplasia Code(s): N40.1 - BENIGN PROSTATIC HYPERPLASIA WITH LOWER URINARY TRACT SYMP; R33.8 - OTHER RETENTION OF URINE Status: Chronic Comment: Indwelling Baker for 2-3 weeks. - Plan * Continue Keppra. * Continue vent support per Pulm. * Continue broad spectrum abx for sepsis and follow cultures. * On Lovenox. May need to change to Heparin if renal function continues to decline. * Add Pepcid for PUD proph.
--- NOTE | 2018-09-14 09:22 | RAD ---
PORTABLE CHEST: History: Intubation and respirator follow up. ICU follow up. Comparison: 09-14-18 at 12:27 a.m. FINDINGS: ET tube remains in place with tip at the fady. NG tube has been placed. Poor inspiration. There is linear atelectasis in the left lung base. There is cardiomegaly and mild vascular engorgement. IMPRESSION: No significant interval change. POS: [facility]
[2018-09-14] MEDS ORDERED: Famotidine/PF 20 mg/2ml Vial SLOW IVP SCH (09:28)
[2018-09-14] MEDS: Multivitamins, Adult 10 ML, Thiamine HCl 100 MG, Folic Acid 1 MG in Dextrose 5 %-0.45 %... IV SCH (09:42)
--- NOTE | 2018-09-14 09:43 | RAD ---
AP CHEST: History: Status post intubation. Date: 09-14-18 Comparison: 09-13-18 FINDINGS: AP chest demonstrates pulling back of the endotracheal tube, distal tip is approximately 1 cm above t he fady. Cardiomegaly is seen. Pulmonary vascular congestion is seen. No evidence of effusions, pneumonia, or pneumothorax is seen. IMPRESSION: Cardiomegaly and pulmonary vascular congestion. POS: [facility]
[2018-09-14] MEDS: Lorazepam 2 MG/ML VIAL SLOW IVP PRN (10:37)
[2018-09-14] MEDS: Propofol 1,000 MG/100 ML VIAL IV PRN ×3 (10:38→21:11)
--- NOTE | 2018-09-14 11:03 | EEG ---
Referring Physician: Patt PRIDE EEG # [id number] TEST TYPE: ROUTINE PORTABLE INPATIENT REPORT: AN EEG USING THE INTERNATIONAL TEN-TWENTY SYSTEM OF ELECTRODE PLACEMENT WAS PERFORMED. The waking background is a low amplitude 9-10 hertz alpha frequency. The patient remained awake. Photic stimulation was unremarkable. No epileptiform features were seen. IMPRESSION: THIS IS A NORMAL AWAKE EEG. Environmental Conflict Manager: [place] Mechanical Oxidizer: EEG.MARK BISHOP
--- NOTE | 2018-09-14 12:52 | PDOC.CTH ---
Cardiology Progress Note - Subjective Re-intubated after self extubation. No on pressors. On Abx - Objective Vital Signs Temp Pulse Resp Pulse Ox 09/14/18 12:00 98.8 F 22 H 09/14/18 10:13 59 L 09/14/18 10:00 21 H 09/14/18 08:00 18 09/14/18 07:54 97 09/14/18 07:00 97.6 F 63 09/14/18 06:00 25 H 09/14/18 04:00 98.5 F 22 H 09/14/18 02:11 74 09/14/18 02:00 17 09/14/18 00:55 70 99 Admit Weight 244 lb 2.944 oz Weight 256 lb 2.834 oz 09/13/18 09/14/18 09/15/18 06:59 06:59 06:59 Intake Total 6165.0 4222 30 Output Total 990 1340 595 Balance 5175.0 2882 -565 - Physical Examination General/Neuro: NAD Neck: carotid US brisk, no JVD present Lungs: CTA, unlabored respirations Heart: RRR Abdomen: NT/ND, soft Extremities: + edema B - Labs Result Diagrams: 09/14/18 05:32 09/14/18 05:32 Troponin/CKMB Troponin I 0.508 ng/mL (< 0.028) H* 09/13/18 08:06 - Assessment/Plan Cardiopulmonary arrest secondary to EtOH withdrawal? Mild cardiomyopathy Sepsis Renal failure EtOH abuse with withdrawal CV status stable On keppra and Abx Self extubated last pm; re-intubation needed this am d/t poor tolerance
[2018-09-14 15:44] LABS: Potassium 3.7 mmol/L (3.5-5.1)
[2018-09-14] MEDS: fentaNYL Citrate/PF 2,000 MCG in Sodium Chloride 0.9% 60 ML IV SCH (16:01)
[2018-09-14] MEDS: Atorvastatin Calcium 40 MG TAB PO SCH (21:12)
[2018-09-15] MEDS: Sodium Chloride 0.9% 1,000 ML IV SCH (00:42)
[2018-09-15] MEDS: Piperacillin/Tazobactam 3.375 GM in Sodium Chloride 0.9% 100 ML IVPB SCH ×5 (00:42→23:53)
[2018-09-15] MEDS: Propofol 1,000 MG/100 ML VIAL IV PRN ×4 (01:48→21:40)
[2018-09-15] MEDS: Vancomycin HCl 1 GM in Premix Bag 1 BAG IVPB SCH ×2 (02:47→15:52)
[2018-09-15 04:45] LABS: #Eosinphils 0.4 thou/uL (0.0-0.7); #Lymphocytes 2.1 thou/uL (1.20-3.40); #Monocytes 1.3 thou/uL (0.11-0.59); #Neutrophils 6.4 thou/uL (1.40-6.50); %Basophils 0.4 % (0.0-1.0); %Eosinophils 4.4 % (0.0-10.0); %Lymphocytes 20.2 % (21.0-51.0); %Monocytes 12.8 % (0.0-10.0); %Neutrophils 62.3 % (42.0-75.0); Hemoglobin 9.2 g/dL (14.0-18.0); Mean Corpuscular HGB CONC 31.7 g/dL (32.0-36.0); Mean Corpuscular Volume 97.6 fL (78.0-98.0); Mean Platelet Volume 6.3 fL (7.4-10.4); Platelet Count 391 thou/uL (130-400); RBC Distribution Width 13.4 % (11.5-14.5); Red Blood Cell (RBC) Count 2.98 mill/uL (4.70-6.10); White Blood Cell (WBC) Count 10.3 thou/uL (4.8-10.8)
[2018-09-15 05:08] LABS: Anion Gap 12 mmol/L (10-20); BUN (Urea Nitrogen) 30 mg/dL (8.4-25.7); Calc. Creatinine Clearance 90 mL/min (70-130); Calcium 8.7 mg/dL (7.8-10.44); Carbon Dioxide 22 mmol/L (23-31); Chloride 108 mmol/L (98-107); Estimated GFR-MDRD 55; Glucose 120 mg/dL (80-115); Potassium 3.6 mmol/L (3.5-5.1); Sodium 138 mmol/L (136-145)
[2018-09-15] MEDS ORDERED: Furosemide 40 MG/4 ML VIAL IVP SCH (07:30)
--- NOTE | 2018-09-15 07:44 | PRG ---
DATE OF SERVICE: 09/15/2018 The patient remains intubated on mechanical ventilation, he is very wild this morning. Apparently, murray buchanan is undergoing forward alcohol withdrawal. PHYSICAL EXAMINATION: VITAL SIGNS: His temperature is 98.8, pulse 83, blood pressure 181/87, O2 sat 100%, 24 hour intake 2 104, output 1030. HEENT: Pupils react. Sclerae anicteric. Oropharynx clear. NECK: No JVD. LUNGS: Coarse breath sounds. CARDIOVASCULAR: S1, S2 tachycardic. ABDOMEN: Soft, obese, nontender. EXTREMITIES: Bilateral below the elbow amputations. LABORATORY DATA: Sodium 138, potassium 3.6, chloride 108, CO2 22, BUN 30, creatinine 1.3, glucose 12 0. White blood cell count 10.3, hematocrit 29.1, platelet count 391. ABG has not been done yet. ASSESSMENT: 1. Alcohol withdrawal. 2. Acute respiratory failure requiring mechanical ventilation. 3. Aspiration pneumonia. 4. Possible seizure at the time of admission. PLAN: 1. The patient will be diuresed and his IV fluids will be stopped other than the one banana bag he g ets per day. 2. Add Reglan. 3. Sedate more heavily and add Precedex. 4. Continue thiamine supplementation. 5. Continue IV antibiotics. The above encompassed 30 minutes critical care time.
[2018-09-15 08:07] LABS: Actual Bicarbonate (HCO3a) 18.8 mEq/L (22-28); CO2 Tension 34.6 mmHg (35.0-45.0); Calcium, Ionized 1.17 mmol/L (1.12-1.30); Carboxyhemoglobin (COHb) 0.9 gm% (0.0-3.0); Hemoglobin (Hb) 9.9 g/dL (14.0-18.0); O2 Tension (PaO2) 85.8 mmHg (> 80.0); Potassium - ABG Lab 3.56 mmol/L (3.70-5.30); pH, Arterial 7.35 (7.35-7.45)
--- NOTE | 2018-09-15 08:51 | RAD ---
AP CHEST: History: Intubated patient. Date: 09-15-18 Comparison: 09-14-18 FINDINGS: AP chest demonstrates nasogastric and endotracheal tubes to be in place. Cardiomegaly is seen. Pulmon jose vascular congestion is seen. There is suboptimal inspiratory effort. Pulmonary vascular congestio n noted. No evidence of effusions seen. No evidence of pneumothorax seen. IMPRESSION: Suboptimal inspiratory effort. Radiographic appearance of the chest is stable and unchanged. Endotrac heal and nasogastric tubes are in good position. POS: [facility]
--- NOTE | 2018-09-15 09:52 | PRG ---
DATE OF SERVICE: 09/15/2018 SUBJECTIVE: The patient is intubated. He is awake. He is able to mouth to me that he is unable to talk to me, but that is about all he does. He understands he needs to try and tolerate the ET tube a s much as possible. PHYSICAL EXAMINATION: VITAL SIGNS: Temperature 98.8, pulse 67, BP 173/82, O2 sat 100% on vent. GENERAL: The patient is awake. He is alert. He is interactive and appropriate. HEART: Regular rate and rhythm. LUNGS: Generally clear. Some very minimal scattered rales. ABDOMEN: Soft, nontender. No hepatosplenomegaly. 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 ASSESSMENT AND PLAN: 1. Acute respiratory failure with hypoxia, followed by Pulmonary Critical Care. Still on the vent a nd has some pulmonary edema on his chest x-ray. Cutting back fluids and giving some diuresis today. He was placed back on a rate this morning, so does not appear to be quite ready for extubation. 2. Acute kidney failure, likely some acute tubular necrosis. The patient's creatinine is better tod ay, appears to be somewhat improving. Hold off on a Nephrology consult for now. 3. Demand ischemia of the myocardium likely secondary to code. Minimal cardiomyopathy. 4. Sepsis with acute organ dysfunction. Continue vancomycin and Rocephin and Zosyn. Likely urinary tract source at this point. Blood cultures are growing presumptive corynebacterium. We will contin ue to follow up on culture results and determine sensitivities. He is afebrile now. 5. Seizure, concerns for alcohol withdrawal. The patient is on Keppra. 6. Lactic acidosis, improved. 7. Urinary tract infection with indwelling Baker catheter on broad spectrum antibiotics. Follow up cultures. 8. History of alcohol abuse, stable. 9. History of anxiety, depression, chronic and stable. 10. Diabetes mellitus. Continue sliding scale insulin. 11. Dyslipidemia. We will resume meds once he is able. 12. Hypertension, well controlled. No intervention. 13. History of obesity. 14. History of urinary retention due to benign prostatic hypertrophy requiring an indwelling Baker c atheter.
[2018-09-15] MEDS: Lorazepam 2 MG/ML VIAL SLOW IVP PRN (13:04)
[2018-09-15] MEDS: Pantoprazole 40 MG VIAL IVP SCH (13:08)
[2018-09-15] MEDS: Fish Oil 1,000 MG CAP PO SCH (13:09)
[2018-09-15] MEDS: Polyethylene Glycol 3350 17 GM Packet PO SCH (13:09)
[2018-09-15] MEDS: Tamsulosin HCl 0.4 MG CAP PO SCH (13:09)
[2018-09-15] MEDS: Pramipexole Di-HCl 0.25 MG TAB PO SCH ×2 (13:09→20:43)
[2018-09-15] MEDS: Saccharomyces boulardii 250 MG CAP PO SCH (13:09)
[2018-09-15] MEDS: Finasteride 5 MG TAB PO SCH (13:09)
[2018-09-15] MEDS: Ezetimibe 10 MG TAB PO SCH (13:09)
[2018-09-15] MEDS: Enoxaparin Sodium 40 MG/0.4 ML SYRINGE SC SCH (13:10)
[2018-09-15] MEDS: Metoclopramide HCl 10 MG/2 ML VIAL IVP SCH ×3 (13:16→20:43)
[2018-09-15] MEDS: Phenazopyridine HCl 97.5 MG TABLET PO SCH ×3 (13:18→20:43)
[2018-09-15] MEDS: Oxybutynin 5 MG TAB PO SCH (13:18)
[2018-09-15] MEDS: fentaNYL Citrate/PF 2,000 MCG in Sodium Chloride 0.9% 60 ML IV SCH (13:39)
[2018-09-15] MEDS: Multivitamins, Adult 10 ML, Thiamine HCl 100 MG, Folic Acid 1 MG in Dextrose 5 %-0.45 %... IV SCH (14:36)
[2018-09-15 16:07] LABS: Potassium 3.4 mmol/L (3.5-5.1)
[2018-09-15] MEDS: Atorvastatin Calcium 40 MG TAB PO SCH (20:43)
[2018-09-16] MEDS: Metoclopramide HCl 10 MG/2 ML VIAL IVP SCH ×4 (01:37→20:08)
[2018-09-16] MEDS: Vancomycin HCl 1 GM in Premix Bag 1 BAG IVPB SCH (02:39)
[2018-09-16 04:50] LABS: Anion Gap 12 mmol/L (10-20); BUN (Urea Nitrogen) 55 mg/dL (8.4-25.7); Calc. Creatinine Clearance 85 mL/min (70-130); Calcium 8.6 mg/dL (7.8-10.44); Carbon Dioxide 28 mmol/L (23-31); Chloride 104 mmol/L (98-107); Estimated GFR-MDRD 49; Glucose 213 mg/dL (80-115); Potassium 3.5 mmol/L (3.5-5.1); Sodium 140 mmol/L (136-145)
[2018-09-16 05:17] LABS: Band 5 % (5-11); Hemoglobin 8.2 g/dL (14.0-18.0); Lymphocytes 21 % (21-51); MDiff Complete? YES; Mean Corpuscular HGB CONC 31.1 g/dL (32.0-36.0); Mean Corpuscular Hemoglobin 30.6 pg (27.0-31.0); Mean Corpuscular Volume 98.4 fL (78.0-98.0); Mean Platelet Volume 7.7 fL (7.4-10.4); Monocytes 4 % (0-10); Neutrophil 70 % (42-75); Platelet Count 222 thou/uL (130-400); Red Blood Cell (RBC) Count 2.69 mill/uL (4.70-6.10); White Blood Cell (WBC) Count 14.4 thou/uL (4.8-10.8)
[2018-09-16] MEDS: Piperacillin/Tazobactam 3.375 GM in Sodium Chloride 0.9% 100 ML IVPB SCH ×4 (06:13→23:05)
[2018-09-16] MEDS: Propofol 1,000 MG/100 ML VIAL IV PRN ×5 (06:16→23:07)
[2018-09-16 06:46] LABS: Actual Bicarbonate (HCO3a) 22.6 mEq/L (22-28); Base Excess (BEa) -2.1 mEq/L (-2.0 to +3.0); CO2 Tension 38.3 mmHg (35.0-45.0); Carboxyhemoglobin (COHb) 0.7 gm% (0.0-3.0); Hemoglobin (Hb) 10.3 g/dL (14.0-18.0); O2 Tension (PaO2) 92.8 mmHg (> 80.0); pH, Arterial 7.39 (7.35-7.45)
[2018-09-16 06:48] LABS: ALV-art Gradient 144.525 (0-20); Puncture Site RBA
[2018-09-16] MEDS ORDERED: Furosemide 40 MG/4 ML VIAL SLOW IVP SCH (08:00)
[2018-09-16] MEDS: Enoxaparin Sodium 40 MG/0.4 ML SYRINGE SC SCH (09:20)
[2018-09-16] MEDS: Ezetimibe 10 MG TAB PO SCH (09:21)
[2018-09-16] MEDS: Fish Oil 1,000 MG CAP PO SCH (09:21)
[2018-09-16] MEDS: Pantoprazole 40 MG VIAL IVP SCH (09:21)
[2018-09-16] MEDS: Finasteride 5 MG TAB PO SCH (09:21)
[2018-09-16] MEDS: Oxybutynin 5 MG TAB PO SCH (09:21)
[2018-09-16] MEDS: Pramipexole Di-HCl 0.25 MG TAB PO SCH ×2 (09:22→20:08)
[2018-09-16] MEDS: Saccharomyces boulardii 250 MG CAP PO SCH (09:22)
[2018-09-16] MEDS: Phenazopyridine HCl 97.5 MG TABLET PO SCH ×3 (09:22→17:39)
[2018-09-16] MEDS: Polyethylene Glycol 3350 17 GM Packet PO SCH (09:22)
[2018-09-16] MEDS: Tamsulosin HCl 0.4 MG CAP PO SCH (09:23)
--- NOTE | 2018-09-16 10:38 | PRG ---
DATE OF SERVICE: 09/16/2018 SUBJECTIVE: Mr. Mclain is awake and able to follow commands this morning. He does not appear to be i n near as much alcohol withdrawal as he has been. OBJECTIVE: VITAL SIGNS: On exam, his temperature is 97.9 with no fever overnight, pulse 68, blood pressure 149/ 95. A 24-hour intake 3725, output 3860. HEENT: Pupils are reactive. Sclerae anicteric. Oropharynx clear. NECK: No adenopathy, JVD, or bruits. LUNGS: Diminished breath sounds at bases. CARDIAC: S1, S2, slightly bradycardic. No murmur. ABDOMEN: Soft, obese, nontender, nondistended. EXTREMITIES: No clubbing, cyanosis, trace edema. LABORATORY DATA: A pH 7.39, PCO2 is 38, PO2 of 92 on SIMV rate 14, tidal volume 500, PEEP 5, pressur e support 15, FIO2 40%. White blood cell count 14.4, hematocrit 26.5, platelet count 222. Sodium 14 0, potassium 3.5, chloride 104, CO2 is 28, BUN 55, creatinine 1.4, glucose 213. IMAGING: Chest x-ray shows pulmonary vascular congestion and effusions toward the base on the right. ASSESSMENT: 1. Acute respiratory failure requiring mechanical ventilation. 2. Probably some degree of fluid overload from excess IV fluid intake during admission. 3. Alcohol withdrawal. 4. Aspiration pneumonia. 5. Possible seizure at the time of admission. PLAN: 1. We will try to stop the fentanyl. 2. Stop banana bag, but continue IV thiamine. 3. Continue mechanical ventilation with goal of weaning over the next 2 days. 4. Diurese.
--- NOTE | 2018-09-16 10:57 | RAD ---
PORTABLE CHEST: HISTORY: Respiratory distress. COMPARISON: Prior day's exam. FINDINGS: Endotracheal tube remains in satisfactory position. NG tube is seen with the tip below the hemidiaph ragm. Heart size is enlarged. Pulmonary vessels are engorged. In comparison to the prior examinati on, there is worsening opacities in the right lung base. IMPRESSION: Increased opacification in the right base, which could represent effusion with atelectasis or infiltr ate. POS: [facility]
[2018-09-16] MEDS: Atorvastatin Calcium 40 MG TAB PO SCH (20:08)
[2018-09-16] MEDS: hydrALAZINE 20 MG/ML VIAL SLOW IVP PRN (21:02)
--- NOTE | 2018-09-16 21:04 | PDOC.PN ---
- Subjective Encounter Start Date: 09/16/18 Encounter Start Time: 09:00 Intubated. Slightly sedated. - Objective Resuscitation Status: Resuscitation Status FULL:Full Resuscitation Vital Signs & Weight: Vital Signs (12 hours) Temp Pulse Resp BP Pulse Ox 09/16/18 20:00 21 H 09/16/18 19:22 94 L 09/16/18 19:00 98.5 F 52 L 189/80 H 09/16/18 18:00 21 H 09/16/18 16:00 18 09/16/18 15:13 53 L 09/16/18 15:00 98.5 F 09/16/18 14:00 14 09/16/18 13:23 51 L 09/16/18 12:00 17 09/16/18 11:23 65 09/16/18 10:00 27 H Weight Admit Weight 244 lb 2.944 oz Weight 269 lb 10.005 oz Most Recent Monitor Data Heart Rate from ECG 50 NIBP 169/78 NIBP BP-Mean 108 Respiration from ECG 21 SpO2 95 I&O: 09/15/18 09/16/18 09/17/18 06:59 06:59 06:59 Intake Total 3994 3725.6 1832 Output Total 1490 3860 3350 Balance 2504 -134.4 -1518 Result Diagrams: 09/16/18 04:00 09/16/18 04:00 Additional Labs: Accuchecks 09/16/18 09/16/18 09/16/18 15:47 09:47 03:44 POC Glucose 115 H 130 H 146 H 09/15/18 21:51 POC Glucose 69 L Phys Exam - Physical Examination Constitutional: NAD Intubated Pupils constrict Respiratory: no wheezing, no rales Cardiovascular: RRR, no significant murmur Gastrointestinal: soft, non-tender, no distention Musculoskeletal: no edema Bilateral below the elbow amputations Dx/Plan (1) Acute kidney failure Status: Acute Comment: Stabilizing creatinine. Likely ATN from the code. Continue to monitor. Avoid nephrotoxins, renal dose meds. (2) Acute respiratory failure with hypoxia Code(s): J96.01 - ACUTE RESPIRATORY FAILURE WITH HYPOXIA Status: Acute Comment: Did not tolerate self-extubation. Followed by Pulmonary. BP stabilized. Diuresing and minimizing fluids. (3) Demand ischemia of myocardium Code(s): I24.8 - OTHER FORMS OF ACUTE ISCHEMIC HEART DISEASE Status: Acute Comment: Modest. Cards following. EF 45%. (4) Hypomagnesemia Code(s): E83.42 - HYPOMAGNESEMIA Status: Acute (5) Lactic acidosis Code(s): E87.2 - ACIDOSIS Status: Acute Comment: Improved. (6) Seizure Code(s): R56.9 - UNSPECIFIED CONVULSIONS Status: Acute Comment: Possibly EtOH WD, but not entirely clear. On Keppra. (7) Sepsis with acute organ dysfunction Code(s): A41.9 - SEPSIS, UNSPECIFIED ORGANISM; R65.20 - SEVERE SEPSIS WITHOUT SEPTIC SHOCK Status: Acute Comment: Vanc, Zosyn, Rocephin. Likely source is the urinary tract. Bl cx with GPR likely contaminant. Continue to follow cultures. (8) UTI (urinary tract infection) due to urinary indwelling catheter Code(s): T83.511A - I/I REACT D/T INDWELLING URETHRAL CATHETER, INIT; N39.0 - URINARY TRACT INFECTION, SITE NOT SPECIFIED Status: Acute Comment: Vanc/ Roceph/Zosyn. Follow cultures. (9) Alcohol abuse Code(s): F10.10 - ALCOHOL ABUSE, UNCOMPLICATED Status: Chronic Comment: Level of use is unclear. (10) Anxiety and depression Code(s): F41.9 - ANXIETY DISORDER, UNSPECIFIED; F32.9 - MAJOR DEPRESSIVE DISORDER, SINGLE EPISODE, UNSPECIFIED Status: Chronic (11) Diabetes type 2, controlled Code(s): E11.9 - TYPE 2 DIABETES MELLITUS WITHOUT COMPLICATIONS Status: Chronic Comment: SSI (12) Dyslipidemia Code(s): E78.5 - HYPERLIPIDEMIA, UNSPECIFIED Status: Chronic (13) Hypertension Code(s): I10 - ESSENTIAL (PRIMARY) HYPERTENSION Status: Chronic (14) Obesity (BMI 30.0-34.9) Code(s): E66.9 - OBESITY, UNSPECIFIED Status: Chronic (15) Urinary retention due to benign prostatic hyperplasia Code(s): N40.1 - BENIGN PROSTATIC HYPERPLASIA WITH LOWER URINARY TRACT SYMP; R33.8 - OTHER RETENTION OF URINE Status: Chronic Comment: Indwelling Baker for 2-3 weeks. - Plan * Pulmonary/CC following. Hope to diurese and extubate soon. .
[2018-09-17] MEDS: Lorazepam 2 MG/ML VIAL SLOW IVP PRN ×2 (01:23→20:01)
[2018-09-17] MEDS: Metoclopramide HCl 10 MG/2 ML VIAL IVP SCH ×4 (01:26→20:09)
[2018-09-17] MEDS: fentaNYL Citrate/PF 2,000 MCG in Sodium Chloride 0.9% 60 ML IV SCH (02:18)
[2018-09-17] MEDS: Propofol 1,000 MG/100 ML VIAL IV PRN ×5 (03:04→23:22)
[2018-09-17 04:30] LABS: #Eosinphils 0.5 thou/uL (0.0-0.7); #Lymphocytes 1.8 thou/uL (1.20-3.40); #Neutrophils 6.9 thou/uL (1.40-6.50); %Basophils 0.4 % (0.0-1.0); %Eosinophils 5.2 % (0.0-10.0); %Lymphocytes 17.2 % (21.0-51.0); %Monocytes 9.8 % (0.0-10.0); %Neutrophils 67.4 % (42.0-75.0); Hemoglobin 10.5 g/dL (14.0-18.0); Mean Corpuscular HGB CONC 32.5 g/dL (32.0-36.0); Mean Corpuscular Volume 95.6 fL (78.0-98.0); Mean Platelet Volume 6.4 fL (7.4-10.4); Platelet Count 401 thou/uL (130-400); Red Blood Cell (RBC) Count 3.39 mill/uL (4.70-6.10); White Blood Cell (WBC) Count 10.2 thou/uL (4.8-10.8)
[2018-09-17 04:40] LABS: Anion Gap 12 mmol/L (10-20); BUN (Urea Nitrogen) 12 mg/dL (8.4-25.7); Calc. Creatinine Clearance 163 mL/min (70-130); Calcium 9.3 mg/dL (7.8-10.44); Carbon Dioxide 26 mmol/L (23-31); Chloride 108 mmol/L (98-107); Estimated GFR-MDRD Greater than 90; Glucose 126 mg/dL (80-115); Magnesium 1.6 mg/dL (1.6-2.6); Phosphorus 3.2 mg/dL (2.3-4.7); Potassium 3.3 mmol/L (3.5-5.1); Sodium 143 mmol/L (136-145)
[2018-09-17] MEDS: Piperacillin/Tazobactam 3.375 GM in Sodium Chloride 0.9% 100 ML IVPB SCH ×4 (05:06→23:46)
[2018-09-17] MEDS ORDERED: Furosemide 20 MG/2 ML VIAL IVP SCH (07:45)
--- NOTE | 2018-09-17 07:56 | PRG ---
DATE OF SERVICE: 09/17/2018 Thirty-five minutes critical care time. SUBJECTIVE: The patient remains intubated on mechanical ventilation. This morning, he is extremely agitated. Apparently, his propofol was reduced last night and fentanyl was used in addition to Ativa n. PHYSICAL EXAMINATION: VITAL SIGNS: His temperature is 98.1 with no fever overnight, pulse 53-83, blood pressure 134/61. A 24-hour intake 2915, output 4725. Weight 263 pounds. HEENT: Unremarkable. NECK: No JVD. LUNGS: Coarse breath sounds. CARDIAC: S1 and S2 regular. ABDOMEN: Soft, nontender. EXTREMITIES: Less edema. LABORATORY DATA: Sodium 143, potassium 3.3, chloride 108, CO2 26, BUN 12, creatinine 0.7, glucose 12 6. White blood cell count 10.2, hematocrit 32.4, platelet count 401. ABG was not done this morning. X-RAY FINDINGS: Chest x-ray was not done this morning. ASSESSMENT: 1. Acute respiratory failure requiring mechanical ventilation. 2. Fluid overload - baseline weight 244 pounds, currently 263 pounds. 3. Alcohol withdrawal. 4. Aspiration pneumonia. 5. Possible seizure at the time of admission. PLAN: 1. Discontinue most of the extraneous oral medications that he does not need at this time. 2. Add Depakote to see if that will help with agitation. 3. Continue to diurese. 4. Hopefully work toward extubation in the next 48 hours if he does well.
[2018-09-17 08:09] LABS: Actual Bicarbonate (HCO3a) 24.8 mEq/L (22-28); Base Excess (BEa) 1.1 mEq/L (-2.0 to +3.0); CO2 Tension 36.2 mmHg (35.0-45.0); Carboxyhemoglobin (COHb) 1.7 gm% (0.0-3.0); Hemoglobin (Hb) 10.7 g/dL (14.0-18.0); O2 Tension (PaO2) 75.8 mmHg (> 80.0); Puncture Site RB; pH, Arterial 7.45 (7.35-7.45)
[2018-09-17] MEDS: Pramipexole Di-HCl 0.25 MG TAB PO SCH ×2 (08:48→20:37)
[2018-09-17] MEDS: Enoxaparin Sodium 40 MG/0.4 ML SYRINGE SC SCH (08:48)
[2018-09-17] MEDS: Polyethylene Glycol 3350 17 GM Packet PO SCH (08:49)
[2018-09-17] MEDS: Ezetimibe 10 MG TAB PO SCH (08:49)
[2018-09-17] MEDS: Fish Oil 1,000 MG CAP PO SCH (08:49)
[2018-09-17] MEDS: Pantoprazole 40 MG VIAL IVP SCH (08:49)
[2018-09-17] MEDS: Valproate Sodium 250 mg/5 ml UD Cup PER TUBE SCH ×3 (08:50→20:37)
--- NOTE | 2018-09-17 21:03 | PDOC.PN ---
- Subjective Encounter Start Date: 09/17/18 Encounter Start Time: 09:15 Intubated. Sedated. - Objective Resuscitation Status: Resuscitation Status FULL:Full Resuscitation Vital Signs & Weight: Vital Signs (12 hours) Temp Pulse Resp BP 09/17/18 18:18 46 L 09/17/18 18:00 14 09/17/18 16:00 98.3 F 16 09/17/18 14:32 50 L 09/17/18 14:00 24 H 09/17/18 13:05 49 L 127/59 L 09/17/18 12:00 97.7 F 16 09/17/18 10:31 53 L 09/17/18 10:00 19 Weight Admit Weight 244 lb 2.944 oz Weight 263 lb 3.711 oz Most Recent Monitor Data Heart Rate from ECG 47 NIBP 132/57 NIBP BP-Mean 82 Respiration from ECG 16 SpO2 94 I&O: 09/16/18 09/17/18 09/18/18 06:59 06:59 06:59 Intake Total 3725.6 2915.7 1793.8 Output Total 3860 4725 2413 Balance -134.4 -1809.3 -619.2 Result Diagrams: 09/17/18 04:06 09/17/18 04:06 Additional Labs: Accuchecks 09/17/18 09/17/18 09/16/18 16:19 09:54 21:09 POC Glucose 123 H 136 H 126 H Phys Exam - Physical Examination Constitutional: NAD Intubated, sedated. Will awaken slightly Respiratory: no wheezing, no rales, no rhonchi, clear to auscultation bilateral Cardiovascular: RRR, no significant murmur Gastrointestinal: soft, non-tender, no distention 1+ peripheral edema. Dx/Plan (1) Acute respiratory failure with hypoxia Code(s): J96.01 - ACUTE RESPIRATORY FAILURE WITH HYPOXIA Status: Acute Comment: Followed by Pulmonary. Diuresing and minimizing fluids. (2) Acute kidney failure Status: Acute Comment: Normalized creatinine. Continue to monitor. Avoid nephrotoxins. (3) Demand ischemia of myocardium Code(s): I24.8 - OTHER FORMS OF ACUTE ISCHEMIC HEART DISEASE Status: Acute Comment: Modest. Cards following. EF 45%. (4) Hypomagnesemia Code(s): E83.42 - HYPOMAGNESEMIA Status: Resolved (5) Lactic acidosis Code(s): E87.2 - ACIDOSIS Status: Resolved Comment: Improved. (6) Seizure Code(s): R56.9 - UNSPECIFIED CONVULSIONS Status: Acute Comment: Patient coded on day 2 of admission. Appeared to be having a grand mal seizure. On Keppra. Patient reported 1/2 pint of EtOH intake daily prior to admission. Unclear if this is related to the seizure. (7) Sepsis with acute organ dysfunction Code(s): A41.9 - SEPSIS, UNSPECIFIED ORGANISM; R65.20 - SEVERE SEPSIS WITHOUT SEPTIC SHOCK Status: Acute Comment: Vanc, Zosyn, Rocephin. Likely source is the urinary tract. Bl cx with GPR likely contaminant. Continue to follow cultures. (8) UTI (urinary tract infection) due to urinary indwelling catheter Code(s): T83.511A - I/I REACT D/T INDWELLING URETHRAL CATHETER, INIT; N39.0 - URINARY TRACT INFECTION, SITE NOT SPECIFIED Status: Acute Comment: Vanc/ Roceph/Zosyn. Follow cultures. (9) Alcohol abuse Code(s): F10.10 - ALCOHOL ABUSE, UNCOMPLICATED Status: Chronic Comment: Level of use is unclear. (10) Anxiety and depression Code(s): F41.9 - ANXIETY DISORDER, UNSPECIFIED; F32.9 - MAJOR DEPRESSIVE DISORDER, SINGLE EPISODE, UNSPECIFIED Status: Chronic (11) Diabetes type 2, controlled Code(s): E11.9 - TYPE 2 DIABETES MELLITUS WITHOUT COMPLICATIONS Status: Chronic Comment: Well controlled. SSI (12) Dyslipidemia Code(s): E78.5 - HYPERLIPIDEMIA, UNSPECIFIED Status: Chronic (13) Hypertension Code(s): I10 - ESSENTIAL (PRIMARY) HYPERTENSION Status: Chronic (14) Obesity (BMI 30.0-34.9) Code(s): E66.9 - OBESITY, UNSPECIFIED Status: Chronic (15) Urinary retention due to benign prostatic hyperplasia Code(s): N40.1 - BENIGN PROSTATIC HYPERPLASIA WITH LOWER URINARY TRACT SYMP; R33.8 - OTHER RETENTION OF URINE Status: Chronic Comment: Indwelling Baker for 2-3 weeks. Continue Baker. (16) Volume overload Code(s): E87.70 - FLUID OVERLOAD, UNSPECIFIED Status: Acute Comment: Diuresing. (17) Cardiomyopathy Code(s): I42.9 - CARDIOMYOPATHY, UNSPECIFIED Status: Acute Comment: EF 40-45 % on echo. May need to be re-evaluated with recovery. - Plan * Above. Sepsis appears to be resolved. Volume overload secondary to resuscitation after code. Diuresing.
[2018-09-18] MEDS: Metoclopramide HCl 10 MG/2 ML VIAL IVP SCH ×4 (02:09→21:56)
[2018-09-18] MEDS: Lorazepam 2 MG/ML VIAL SLOW IVP PRN (02:37)
[2018-09-18] MEDS: Propofol 1,000 MG/100 ML VIAL IV PRN ×6 (03:01→21:59)
[2018-09-18 05:00] LABS: #Basophils 0.1 thou/uL (0.0-0.2); #Eosinphils 0.8 thou/uL (0.0-0.7); #Lymphocytes 1.6 thou/uL (1.20-3.40); #Monocytes 1.2 thou/uL (0.11-0.59); #Neutrophils 6.9 thou/uL (1.40-6.50); %Basophils 0.7 % (0.0-1.0); %Eosinophils 7.9 % (0.0-10.0); %Lymphocytes 15.3 % (21.0-51.0); %Monocytes 10.9 % (0.0-10.0); %Neutrophils 65.2 % (42.0-75.0); Hemoglobin 10.3 g/dL (14.0-18.0); Mean Corpuscular HGB CONC 31.9 g/dL (32.0-36.0); Mean Corpuscular Hemoglobin 30.6 pg (27.0-31.0); Mean Corpuscular Volume 95.9 fL (78.0-98.0); Mean Platelet Volume 6.5 fL (7.4-10.4); Platelet Count 428 thou/uL (130-400); RBC Distribution Width 13.2 % (11.5-14.5); Red Blood Cell (RBC) Count 3.35 mill/uL (4.70-6.10); White Blood Cell (WBC) Count 10.6 thou/uL (4.8-10.8)
[2018-09-18 05:08] LABS: Anion Gap 12 mmol/L (10-20); BUN (Urea Nitrogen) 13 mg/dL (8.4-25.7); Calc. Creatinine Clearance 159 mL/min (70-130); Carbon Dioxide 29 mmol/L (23-31); Chloride 108 mmol/L (98-107); Estimated GFR-MDRD Greater than 90; Glucose 103 mg/dL (80-115); Potassium 3.3 mmol/L (3.5-5.1); Sodium 146 mmol/L (136-145)
[2018-09-18] MEDS: Piperacillin/Tazobactam 3.375 GM in Sodium Chloride 0.9% 100 ML IVPB SCH ×4 (06:11→22:31)
[2018-09-18] MEDS: Potassium Chloride 40 MEQ in Premix Bag 1 BAG IVPB PRN (06:36)
[2018-09-18 07:56] LABS: Actual Bicarbonate (HCO3a) 28.8 mEq/L (22-28); Base Excess (BEa) 4.2 mEq/L (-2.0 to +3.0); CO2 Tension 43.2 mmHg (35.0-45.0); Hemoglobin (Hb) 10.9 g/dL (14.0-18.0); O2 Tension (PaO2) 76.7 mmHg (> 80.0); pH, Arterial 7.44 (7.35-7.45)
[2018-09-18 08:09] LABS: Puncture Site RBA
[2018-09-18] MEDS: Enoxaparin Sodium 40 MG/0.4 ML SYRINGE SC SCH (08:22)
[2018-09-18] MEDS: Pantoprazole 40 MG VIAL IVP SCH (08:22)
[2018-09-18] MEDS: Polyethylene Glycol 3350 17 GM Packet PO SCH (08:23)
[2018-09-18] MEDS: Valproate Sodium 250 mg/5 ml UD Cup PER TUBE SCH ×3 (08:23→21:57)
[2018-09-18] MEDS: Pramipexole Di-HCl 0.25 MG TAB PO SCH ×2 (08:23→22:02)
--- NOTE | 2018-09-18 08:36 | PRG ---
DATE OF SERVICE: 09/18/2018 Thirty-five minutes critical care time. SUBJECTIVE: The patient remains intubated on mechanical ventilation. He is off the fentanyl and is being managed with the propofol and Precedex. He is actually very calm this morning compared to cydneyt elizabeth. PHYSICAL EXAMINATION: VITAL SIGNS: His temperature is 97.6, pulse 43, blood pressure 142/66. A 24-hour intake 2915, outpu t 4725. HEENT: Unremarkable. NECK: No JVD. CHEST: Clear anteriorly. CARDIOVASCULAR: S1 and S2 regular. ABDOMEN: Soft, obese, nontender. EXTREMITIES: No edema. LABORATORY DATA: White blood cell count 10.6, hematocrit 32.1, platelet count 428. Sodium 146, pota ssium 3.3, chloride 108, CO2 of 29, BUN 13, creatinine 0.7, glucose 103. ASSESSMENT: 1. Acute respiratory failure requiring mechanical ventilation. 2. Alcohol withdrawal. 3. Fairly low tidal volumes on chest x-ray - he may need higher tidal volumes and we are giving with the ventilator. 4. Aspiration pneumonia. PLAN: 1. Try to ease back on the propofol. 2. Hold diuresis for today. 3. Increase tidal volumes on the vent.
[2018-09-18] MEDS: Loperamide HCl 2 MG CAP PO PRN (08:40)
--- NOTE | 2018-09-18 09:57 | RAD ---
PORTABLE CHEST: Date: 09/18/18 HISTORY: Ventilator and CCU follow-up. Dyspnea. COMPARISON: 09/16/18. FINDINGS: Bilateral infiltrates and bibasilar atelectasis. Cardiomegaly with mild vascular congestion. ET tube and NG tube are in place. IMPRESSION: No significant change from 09/16/18. POS: [facility]
[2018-09-18] MEDS: hydrALAZINE 20 MG/ML VIAL SLOW IVP PRN (12:11)
[2018-09-18] MEDS: Acetaminophen 325 MG TAB PO PRN (14:21)
--- NOTE | 2018-09-18 17:55 | PDOC.PN ---
- Subjective Encounter Start Date: 09/18/18 Encounter Start Time: 13:00 Intubated, but awake. Indicated some discomfort in his foot with palpation, but otherwise did not express much discomfort. - Objective Resuscitation Status: Resuscitation Status FULL:Full Resuscitation Vital Signs & Weight: Vital Signs (12 hours) Temp Pulse Resp BP Pulse Ox 09/18/18 16:00 30 H 09/18/18 15:16 70 149/77 H 09/18/18 14:00 18 09/18/18 12:11 55 L 199/93 H 09/18/18 12:00 99.9 F H 16 09/18/18 11:11 55 L 199/93 H 09/18/18 11:05 57 L 199/93 H 09/18/18 10:00 14 09/18/18 08:00 97.8 F 22 H 97 09/18/18 06:20 48 L 142/66 H 09/18/18 06:00 14 Weight Admit Weight 244 lb 2.944 oz Weight 265 lb 14.04 oz Most Recent Monitor Data Heart Rate from ECG 54 NIBP 174/65 NIBP BP-Mean 101 Respiration from ECG 25 SpO2 95 I&O: 09/17/18 09/18/18 09/19/18 06:59 06:59 06:59 Intake Total 2915.7 3307.8 1487.5 Output Total 4725 3138 945 Balance -1809.3 169.8 542.5 Result Diagrams: 09/18/18 04:30 09/18/18 04:30 Additional Labs: Accuchecks 09/18/18 09/18/18 09/18/18 16:20 10:33 04:27 POC Glucose 110 104 103 09/17/18 21:49 POC Glucose 99 Phys Exam - Physical Examination Constitutional: NAD Intubated and awake. Respiratory: no wheezing, no rales, no rhonchi, clear to auscultation bilateral Tracheal secretion noise. Cardiovascular: RRR, no significant murmur Gastrointestinal: soft, non-tender, no distention 1+ pitting edema of the feet. Psychiatric: normal affect Dx/Plan (1) Acute respiratory failure with hypoxia Code(s): J96.01 - ACUTE RESPIRATORY FAILURE WITH HYPOXIA Status: Acute Comment: Followed by Pulmonary. Diuresing and minimizing fluids. (2) Acute kidney failure Status: Acute Comment: Normalized creatinine. Continue to monitor. Avoid nephrotoxins. (3) Demand ischemia of myocardium Code(s): I24.8 - OTHER FORMS OF ACUTE ISCHEMIC HEART DISEASE Status: Acute Comment: Modest. Cards following. EF 45%. (4) Hypomagnesemia Code(s): E83.42 - HYPOMAGNESEMIA Status: Resolved (5) Lactic acidosis Code(s): E87.2 - ACIDOSIS Status: Resolved Comment: Improved. (6) Seizure Code(s): R56.9 - UNSPECIFIED CONVULSIONS Status: Acute Comment: Patient coded on day 2 of admission. Appeared to be having a grand mal seizure. On Keppra. Patient reported 1/2 pint of EtOH intake daily prior to admission. Unclear if this is related to the seizure. (7) Sepsis with acute organ dysfunction Code(s): A41.9 - SEPSIS, UNSPECIFIED ORGANISM; R65.20 - SEVERE SEPSIS WITHOUT SEPTIC SHOCK Status: Acute Comment: Vanc, Zosyn, Rocephin. Likely source is the urinary tract. Bl cx with GPR likely contaminant. Continue to follow cultures. (8) UTI (urinary tract infection) due to urinary indwelling catheter Code(s): T83.511A - I/I REACT D/T INDWELLING URETHRAL CATHETER, INIT; N39.0 - URINARY TRACT INFECTION, SITE NOT SPECIFIED Status: Acute Comment: Vanc/ Roceph/Zosyn. Follow cultures. (9) Alcohol abuse Code(s): F10.10 - ALCOHOL ABUSE, UNCOMPLICATED Status: Chronic Comment: Level of use is unclear. (10) Anxiety and depression Code(s): F41.9 - ANXIETY DISORDER, UNSPECIFIED; F32.9 - MAJOR DEPRESSIVE DISORDER, SINGLE EPISODE, UNSPECIFIED Status: Chronic (11) Diabetes type 2, controlled Code(s): E11.9 - TYPE 2 DIABETES MELLITUS WITHOUT COMPLICATIONS Status: Chronic Comment: Well controlled. SSI (12) Dyslipidemia Code(s): E78.5 - HYPERLIPIDEMIA, UNSPECIFIED Status: Chronic (13) Hypertension Code(s): I10 - ESSENTIAL (PRIMARY) HYPERTENSION Status: Chronic (14) Obesity (BMI 30.0-34.9) Code(s): E66.9 - OBESITY, UNSPECIFIED Status: Chronic (15) Urinary retention due to benign prostatic hyperplasia Code(s): N40.1 - BENIGN PROSTATIC HYPERPLASIA WITH LOWER URINARY TRACT SYMP; R33.8 - OTHER RETENTION OF URINE Status: Chronic Comment: Indwelling Pike for 2-3 weeks. Continue Pike. (16) Volume overload Code(s): E87.70 - FLUID OVERLOAD, UNSPECIFIED Status: Acute Comment: Diuresing. (17) Cardiomyopathy Code(s): I42.9 - CARDIOMYOPATHY, UNSPECIFIED Status: Acute Comment: EF 40-45 % on echo. May need to be re-evaluated with recovery. - Plan cont current plan of care, pike catheter, continue antibiotics * .
[2018-09-19] MEDS: Piperacillin/Tazobactam 3.375 GM in Sodium Chloride 0.9% 100 ML IVPB SCH ×4 (04:59→23:10)
[2018-09-19] MEDS: Metoclopramide HCl 10 MG/2 ML VIAL IVP SCH ×4 (04:59→20:22)
[2018-09-19] MEDS: Propofol 1,000 MG/100 ML VIAL IV PRN ×4 (04:59→23:10)
[2018-09-19 06:35] LABS: #Basophils 0.1 thou/uL (0.0-0.2); #Eosinphils 0.7 thou/uL (0.0-0.7); #Lymphocytes 1.9 thou/uL (1.20-3.40); #Monocytes 0.8 thou/uL (0.11-0.59); #Neutrophils 6.5 thou/uL (1.40-6.50); %Basophils 0.5 % (0.0-1.0); %Eosinophils 6.9 % (0.0-10.0); %Lymphocytes 19.5 % (21.0-51.0); %Monocytes 8.2 % (0.0-10.0); %Neutrophils 64.9 % (42.0-75.0); Hemoglobin 10.7 g/dL (14.0-18.0); Mean Corpuscular HGB CONC 30.4 g/dL (32.0-36.0); Mean Corpuscular Hemoglobin 29.5 pg (27.0-31.0); Mean Corpuscular Volume 96.8 fL (78.0-98.0); Mean Platelet Volume 6.4 fL (7.4-10.4); Platelet Count 472 thou/uL (130-400); RBC Distribution Width 13.3 % (11.5-14.5); Red Blood Cell (RBC) Count 3.63 mill/uL (4.70-6.10)
[2018-09-19 06:53] LABS: Anion Gap 11 mmol/L (10-20); BUN (Urea Nitrogen) 11 mg/dL (8.4-25.7); Calc. Creatinine Clearance 163 mL/min (70-130); Calcium 9.3 mg/dL (7.8-10.44); Carbon Dioxide 30 mmol/L (23-31); Chloride 111 mmol/L (98-107); Estimated GFR-MDRD Greater than 90; Glucose 123 mg/dL (80-115); Potassium 3.4 mmol/L (3.5-5.1); Sodium 149 mmol/L (136-145)
--- NOTE | 2018-09-19 08:18 | RAD ---
PORTABLE CHEST: Date: 09/19/18 HISTORY: Ventilator and CCU follow-up. COMPARISON: 09/18/18. FINDINGS: Poor inspiration. Hazy infiltrate throughout the right lung. Left lower lobe atelectasis or infiltrat e. Cardiomegaly and mild vascular congestion. ET tube and NG tube remain in place. IMPRESSION: Above findings have not significantly changed from yesterday. POS: [facility]
[2018-09-19] MEDS: Valproate Sodium 250 mg/5 ml UD Cup PER TUBE SCH ×3 (08:43→20:23)
[2018-09-19] MEDS: Enoxaparin Sodium 40 MG/0.4 ML SYRINGE SC SCH (08:43)
[2018-09-19] MEDS: Pantoprazole 40 MG VIAL IVP SCH (08:43)
[2018-09-19] MEDS: Polyethylene Glycol 3350 17 GM Packet PO SCH (08:44)
[2018-09-19] MEDS: Pramipexole Di-HCl 0.25 MG TAB PO SCH ×2 (08:44→20:22)
[2018-09-19] MEDS: Lisinopril 20 MG TAB PER TUBE SCH (08:45)
[2018-09-19] MEDS: Amlodipine 5 MG TAB PER TUBE SCH (08:46)
--- NOTE | 2018-09-19 11:20 | PRG ---
DATE OF SERVICE: 09/19/2018 Thirty-five minutes critical care time. SUBJECTIVE: The patient remains intubated on mechanical ventilation. He will wake up and follow com mands. PHYSICAL EXAMINATION: VITAL SIGNS: Temperature is 98.4, pulse 52, blood pressure 195/88. A 24 hour intake 2046, output 20 55. HEENT: Pupils react. Sclerae are anicteric. Oropharynx clear. NECK: No adenopathy or JVD. LUNGS: Fairly clear anteriorly. CARDIOVASCULAR: S1, S2, slightly bradycardic. No murmur. ABDOMEN: Soft, obese, nontender, nondistended. EXTREMITIES: No clubbing, cyanosis. He has trace edema. LABORATORY DATA: White blood cell count 10, hematocrit 35.1, platelet count 472. ABG is pending. S odium 149, potassium 3.4, chloride 111, CO2 of 30, BUN 11, creatinine 0.7, glucose 123. ASSESSMENT: 1. Acute respiratory failure requiring mechanical ventilation. 2. Alcohol withdrawal, which appears to be better. 3. Aspiration pneumonia. 4. Mild hypernatremia. PLAN: 1. Continue the IV antibiotics. 2. Attempt spontaneous breathing trial, although I think his chances of doing well with that are rose rly low. Add some free water to his enteral tube feeds and hold any further attempts at diuresis.
[2018-09-19] MEDS: HYDROcodone/Acetaminophen 5/325 mg Tablet PO PRN (12:10)
[2018-09-19] MEDS: Lorazepam 2 MG/ML VIAL SLOW IVP PRN (12:24)
[2018-09-19] MEDS: hydrALAZINE 20 MG/ML VIAL SLOW IVP PRN ×2 (12:33→19:51)
--- NOTE | 2018-09-19 15:01 | PDOC.PN ---
- Subjective Encounter Start Date: 09/19/18 Encounter Start Time: 10:20 Pt seen for followup re: acute hypoxic respiratory failure. Intubated, unable to complete ROS. - Objective Resuscitation Status: Resuscitation Status FULL:Full Resuscitation MAR Reviewed: Yes Vital Signs & Weight: Vital Signs (12 hours) Temp Pulse Resp BP 09/19/18 12:33 52 L 189/81 H 09/19/18 10:31 63 174/77 H 09/19/18 08:46 56 L 192/79 H 09/19/18 08:45 192/79 H 09/19/18 07:53 58 L 09/19/18 06:00 25 H 09/19/18 04:00 98.4 F 21 H Weight Admit Weight 244 lb 2.944 oz Weight 266 lb 1.567 oz Most Recent Monitor Data Heart Rate from ECG 58 NIBP 178/138 NIBP BP-Mean 151 Respiration from ECG 26 SpO2 95 I&O: 09/18/18 09/19/18 09/20/18 06:59 06:59 06:59 Intake Total 3307.8 2047.5 Output Total 3138 2055 Balance 169.8 -7.5 Result Diagrams: 09/19/18 06:10 09/19/18 06:10 Additional Labs: Accuchecks 09/19/18 09/19/18 09/18/18 11:55 06:26 16:20 POC Glucose 101 122 H 110 EKG Reviewed by me: Yes (Tele: sinus bradycardia) Phys Exam - Physical Examination Intubated ETT [place] crackles S1, S2, reg, marry Gastrointestinal: soft [place] below elbow amputation Neurological: moves all 4 limbs Deviation from normal: Unable to assess Dx/Plan (1) Acute respiratory failure with hypoxia Code(s): J96.01 - ACUTE RESPIRATORY FAILURE WITH HYPOXIA Status: Acute Comment: continue antibiotics, diuretics on hold (2) Diabetes type 2, controlled Code(s): E11.9 - TYPE 2 DIABETES MELLITUS WITHOUT COMPLICATIONS Status: Chronic Comment: controlled (3) Dyslipidemia Code(s): E78.5 - HYPERLIPIDEMIA, UNSPECIFIED Status: Chronic Comment: statin on hold at this time, check LFTs in AM (4) Hypertension Code(s): I10 - ESSENTIAL (PRIMARY) HYPERTENSION Status: Chronic Comment: monitor vital signs, titrate antihypertensives as needed - Plan * . Review of Systems - Medications/Allergies Allergies/Adverse Reactions: Allergies Allergy/AdvReac Type Severity Reaction Status Date / Time tramadol Allergy Verified 09/12/18 13:29 Medications: Current Medications Acetaminophen (Tylenol) 650 mg PO Q4H PRN PRN Reason: Headache/Fever/Mild Pain (1-3) Last Admin: 09/18/18 14:21 Dose: 650 mg Hydrocodone Bitart/Acetaminophen ([place] 5/325) 1 tab PO Q4H PRN PRN Reason: Moderate Pain (4-6) Hydrocodone Bitart/Acetaminophen ([place] 5/325) 2 tab PO Q4H PRN PRN Reason: Severe Pain (7-10) Last Admin: 09/19/18 12:10 Dose: 2 tab Amlodipine Besylate (Norvasc) 5 mg PER TUBE DAILY [facility] Last Admin: 09/19/18 08:46 Dose: 5 mg Artificial Tears (Tears Naturale) 2 drop EA EYE PRN PRN PRN Reason: Dry Eyes Aspirin (Aspirin Chewable) 81 mg PO DAILY [facility] Last Admin: 09/19/18 08:44 Dose: 81 mg Bisacodyl (Dulcolax) 10 mg [place] DAILYPRN PRN PRN Reason: Constipation Calcium Carbonate (Tums) 1,000 mg PO Q4H PRN PRN Reason: Heartburn or Indigestion Dextrose/Water (Dextrose 50%) 25 gm SLOW IVP PRN PRN PRN Reason: Hypoglycemia Enoxaparin Sodium (Lovenox) 40 mg SC 0900 [facility] Last Admin: 09/19/18 08:43 Dose: 40 mg Glucagon (Glucagon) 1 mg IM PRN PRN PRN Reason: Hypoglycemia Hydralazine HCl (Apresoline) 10 mg SLOW IVP Q4H PRN PRN Reason: SBP > 180 and HR < 70 Last Admin: 09/19/18 12:33 Dose: 10 mg Dextrose/Water (D5w) 1,000 mls @ 0 mls/hr IV .Q0M PRN PRN Reason: Hypoglycemia Piperacillin Sod/Tazobactam (Sod 3.375 gm/ Sodium Chloride) 100 mls @ 200 mls/ hr IVPB Q6HR [facility] Last Admin: 09/19/18 11:58 Dose: 100 mls Levetiracetam 500 mg/ Device 100 mls @ 200 mls/hr IVPB BID [facility] Last Admin: 09/19/18 08:44 Dose: 100 mls Fentanyl Citrate 2,000 mcg/ (Sodium Chloride) 100 mls @ 0 mls/hr IV INF [facility]; Protocol Stop: 10/13/18 01:51 Last Admin: 09/17/18 02:18 Dose: 100 mls Fentanyl Citrate (Fentanyl Bolus) 250 mls @ 0 mls/hr IVPB PRN PRN PRN Reason: Breakthrough pain/agitation Stop: 10/13/18 01:51 Potassium Chloride 40 meq/ (Sodium Chloride) 270 mls @ 135 mls/hr IVPB ASDIR PRN PRN Reason: FOR SERUM K+ 2.5 - 3.5 Potassium Chloride 40 meq/ (Device) 100 mls @ 50 mls/hr IVPB ASDIR PRN PRN Reason: FOR SERUM K+ 2.5 - 3.5 Last Admin: 09/18/18 06:36 Dose: 100 mls Magnesium Sulfate 1 gm/ Sodium (Chloride) 102 mls @ 102 mls/hr IV PRN PRN PRN Reason: MAG LEVEL 1.4 - 2.0 Magnesium Sulfate 2 gm/ Device 100 mls @ 100 mls/hr IVPB ASDIR PRN PRN Reason: MAGNESIUM < 1.4 Potassium Phosphate 9 mmol/ (Sodium Chloride) 103 mls @ 25.75 mls/hr IVPB ASDIR PRN PRN Reason: Phosphate 1.0-1.8 Potassium Phosphate 12 mmol/ (Sodium Chloride) 254 mls @ 63.5 mls/hr IV ASDIR PRN PRN Reason: Serum phosphate 0.5-0.9 Potassium Phosphate 15 mmol/ (Sodium Chloride) 255 mls @ 63.75 mls/hr IV ASDIR PRN PRN Reason: Serum Phos < 0.5 Thiamine HCl 100 mg/ Sodium (Chloride) 51 mls @ 100 mls/hr IVPB 0900 [facility] Last Admin: 09/19/18 08:43 Dose: 51 mls Dexmedetomidine HCl 400 mcg/ (Sodium Chloride) 100 mls @ 0 mls/hr IVPB INF [place] ; Protocol Last Admin: 09/19/18 08:49 Dose: 100 mls Insulin Human Lispro (Humalog) 0 units SC .MODERATE SLIDING SC PRN PRN Reason: Moderate Correctional Scale Insulin Human Lispro (Humalog) 0 units SC .BEDTIME SLIDING SC PRN PRN Reason: Bedtime Correctional Scale Labetalol HCl (Normodyne) 20 mg SLOW IVP Q4H PRN PRN Reason: SBP > 180 and HR >/= 70 Lisinopril (Zestril) 40 mg PER TUBE DAILY [facility] Last Admin: 09/19/18 08:45 Dose: 40 mg Loperamide HCl (Imodium) 2 mg PO PRN PRN PRN Reason: Diarrhea/Loose Stools Last Admin: 09/18/18 08:40 Dose: 2 mg Lorazepam (Ativan) 2 mg SLOW IVP Q2H PRN PRN Reason: Anxiety/Agitation Last Admin: 09/19/18 12:24 Dose: 2 mg Lorazepam (Ativan) 2 mg SLOW IVP Q1H PRN PRN Reason: Breakthrough agitation Stop: 10/13/18 01:51 Last Admin: 09/18/18 02:37 Dose: 2 mg Magnesium Oxide (Magnesium Oxide) 400 mg PO BIDPRN PRN PRN Reason: FOR SERUM MAG 1.4 - 2.0 Last Admin: 09/17/18 05:06 Dose: 400 mg Magnesium Oxide (Magnesium Oxide) 800 mg PO PRN PRN PRN Reason: FOR SERUM MAG < 1.4 Metoclopramide HCl (Reglan) 10 mg IVP 0200,0800,1400,2000 [facility] Last Admin: 09/19/18 12:54 Dose: 10 mg Mineral Oil/White Petrolatum (Eucerin Cream) 0 gm TOP BIDPRN PRN PRN Reason: Dry Skin Miscellaneous Medication (Phos-Nak) 1 pkt PO TIDPRN PRN PRN Reason: FOR PHOS LEVEL 1.0 - 1.8 Miscellaneous Medication (Phos-Nak) 2 pkt PO TIDPRN PRN PRN Reason: FOR PHOS LEVEL 0.5 - 1.0 Discontinue Previous Narcotic Pain Medications And Benzodiazepines 1 each FS .ONE [facility] Stop: 10/13/18 01:51 Ondansetron HCl (Zofran Odt) 4 mg PO Q6H PRN PRN Reason: Nausea/Vomiting Ondansetron HCl (Zofran) 4 mg IVP Q6H PRN PRN Reason: Nausea/Vomiting Pantoprazole Sodium (Protonix) 40 mg IVP DAILY [facility] Last Admin: 09/19/18 08:43 Dose: 40 mg Polyethylene Glycol (Miralax) 17 gm PO DAILY [facility] Last Admin: 09/19/18 08:44 Dose: 17 gm Potassium Chloride (K-Dur) 40 meq PO ASDIR PRN PRN Reason: FOR SERUM K+ 2.5 - 3.5 Potassium Chloride (Klor-Con) 40 meq PER TUBE ASDIR PRN PRN Reason: FOR SERUM K+ 2.5-3.5 Last Admin: 09/17/18 05:06 Dose: 40 meq Pramipexole Dihydrochloride (Mirapex) 0.25 mg PO BID [facility] Last Admin: 09/19/18 08:44 Dose: 0.25 mg Propofol (Diprivan) 1,000 mg IV INF PRN; Protocol PRN Reason: TO ACHIEVE GOAL RASS Stop: 10/13/18 01:51 Last Admin: 09/19/18 11:58 Dose: 1,000 mg Propofol (Diprivan Bolus) 20 mg IV Q5MIN PRN PRN Reason: BREAKTHROUGH AGITATION Stop: 10/13/18 01:51 Sodium Chloride ([place] Nasal [place] 0.65%) 0 ml EA NARE QIDPRN PRN PRN Reason: Nasal Congestion Sodium Chloride (Flush - Normal Saline) 10 ml IVF Q12HR [facility] Last Admin: 09/18/18 22:11 Dose: 10 ml Sodium Chloride (Flush - Normal Saline) 10 ml IVF PRN PRN PRN Reason: Saline Flush Last Admin: 09/14/18 10:37 Dose: 10 ml Throat Lozenges (Cepastat Lozenges) 1 john PO Q2H PRN PRN Reason: Sore Throat Valproic Acid (Depakene Liquid) 500 mg PER TUBE TID [facility] Last Admin: 09/19/18 08:43 Dose: 500 mg
[2018-09-20] MEDS: Propofol 1,000 MG/100 ML VIAL IV PRN ×5 (03:05→22:57)
[2018-09-20] MEDS: Metoclopramide HCl 10 MG/2 ML VIAL IVP SCH ×4 (03:06→21:49)
[2018-09-20] MEDS: hydrALAZINE 20 MG/ML VIAL SLOW IVP PRN ×3 (05:21→19:15)
[2018-09-20] MEDS: Piperacillin/Tazobactam 3.375 GM in Sodium Chloride 0.9% 100 ML IVPB SCH ×4 (05:23→22:57)
[2018-09-20 05:59] LABS: #Basophils 0.1 thou/uL (0.0-0.2); #Eosinphils 0.7 thou/uL (0.0-0.7); #Lymphocytes 2.1 thou/uL (1.20-3.40); #Neutrophils 6.2 thou/uL (1.40-6.50); %Basophils 0.6 % (0.0-1.0); %Eosinophils 6.8 % (0.0-10.0); %Monocytes 9.5 % (0.0-10.0); %Neutrophils 62.1 % (42.0-75.0); Hemoglobin 10.4 g/dL (14.0-18.0); Mean Corpuscular HGB CONC 31.4 g/dL (32.0-36.0); Mean Corpuscular Hemoglobin 30.2 pg (27.0-31.0); Mean Corpuscular Volume 96.4 fL (78.0-98.0); Mean Platelet Volume 6.6 fL (7.4-10.4); Platelet Count 450 thou/uL (130-400); RBC Distribution Width 13.2 % (11.5-14.5); Red Blood Cell (RBC) Count 3.45 mill/uL (4.70-6.10)
[2018-09-20 06:20] LABS: Anion Gap 8 mmol/L (10-20); BUN (Urea Nitrogen) 11 mg/dL (8.4-25.7); Calc. Creatinine Clearance 165 mL/min (70-130); Calcium 9.1 mg/dL (7.8-10.44); Carbon Dioxide 31 mmol/L (23-31); Chloride 109 mmol/L (98-107); Estimated GFR-MDRD Greater than 90; Glucose 123 mg/dL (80-115); Potassium 3.3 mmol/L (3.5-5.1); Sodium 145 mmol/L (136-145)
[2018-09-20 06:22] LABS: ALT (SGPT) 20 U/L (8-55); AST (SGOT) 28 U/L (5-34); Albumin 3.2 g/dL (3.4-4.8); Alkaline Phosphatase 74 U/L (40-150); Bilirubin, Direct 0.2 mg/dL (0.1-0.3); Bilirubin, Total 0.2 mg/dL (0.2-1.2); Protein, Total 6.8 g/dL (5.8-8.1)
[2018-09-20] MEDS: Enoxaparin Sodium 40 MG/0.4 ML SYRINGE SC SCH (07:21)
[2018-09-20] MEDS: Pantoprazole 40 MG VIAL IVP SCH (07:21)
[2018-09-20] MEDS: Lisinopril 20 MG TAB PER TUBE SCH (07:22)
[2018-09-20] MEDS: Valproate Sodium 250 mg/5 ml UD Cup PER TUBE SCH ×3 (07:22→21:50)
[2018-09-20] MEDS: Polyethylene Glycol 3350 17 GM Packet PO SCH (07:22)
[2018-09-20] MEDS: Pramipexole Di-HCl 0.25 MG TAB PO SCH ×2 (07:22→21:50)
[2018-09-20] MEDS: Amlodipine 5 MG TAB PER TUBE SCH (07:22)
[2018-09-20] MEDS: Potassium Chloride 40 MEQ in Premix Bag 1 BAG IVPB PRN (07:49)
[2018-09-20] MEDS ORDERED: Vecuronium 10 MG VIAL IVP STA (08:08)
--- NOTE | 2018-09-20 08:21 | PRG ---
DATE OF SERVICE: 09/20/2018 Thirty-five minutes critical care time. Mr. Mclain remains on mechanical ventilation despite attempts to wean. PHYSICAL EXAMINATION: VITAL SIGNS: Temperature 97.7, pulse 56, blood pressure 187/83. 24 hour intake 3998, output 1525. HEENT: Unremarkable. NECK: No JVD. LUNGS: Coarse breath sounds. CARDIOVASCULAR: S1, S2 regular. ABDOMEN: Soft, obese, nontender. EXTREMITIES: Bilateral below the elbow amputations. LABORATORY DATA: White blood cell count 10, hematocrit 33, platelet count 450. Sodium 145, potassiu m 3.3, chloride 109, CO2 31, BUN 11, creatinine 0.7, glucose 123. Chest x-ray shows increased opacification of the right chest. ASSESSMENT: 1. Acute respiratory failure requiring mechanical ventilation. So far the patient has not demonstra melinda any ability to wean. 2. Alcohol withdrawal. 3. Aspiration pneumonitis. 4. Generalized failure to thrive. PLAN: 1. Bronchoscopy to clear out the probable mucus plug in the right lung. I spoke with the and o btained her permission to proceed with that procedure: 2. Continue antibiotics. 3. Holding any weaning attempts today. 4. I told the that we may be facing the prospect of tracheostomy towards the end of the week. 5. Continue thiamine supplementation. 6. We have stopped blood gas attempts because he is such a difficult stick.
[2018-09-20] MEDS ORDERED: Sterile Water 10 ML VIAL FS SCH (08:30)
[2018-09-20] MEDS: Lorazepam 2 MG/ML VIAL SLOW IVP PRN (08:40)
--- NOTE | 2018-09-20 09:25 | RAD ---
SINGLE VIEW CHEST: Date: 09/20/18 COMPARISON: 09/19/18. HISTORY: Ventilated patient with respiratory failure. FINDINGS: Single view of the chest shows an enlarged but stable cardiomediastinal silhouette. The lines and tub es are unchanged in position. Opacity is seen in the right thorax which may represent a pleural effus ion and/or atelectasis. This has slightly worsened compared to the prior exam. IMPRESSION: Worsening right pleural effusion with adjacent atelectasis. POS: RAMONH
--- NOTE | 2018-09-20 12:00 | OP ---
DATE OF PROCEDURE: 09/20/2018 SURGEON: Dr. Kenyon Odonnell PROCEDURE: Bronchoscopy. PREOPERATIVE DIAGNOSIS: Mucus plugging. POSTOPERATIVE DIAGNOSIS: Fairly normal airways bilaterally. ANESTHESIA: The patient was given a total 10 mg of Norcuron IV and some Ativan IV prior to procedure . DESCRIPTION OF PROCEDURE: Informed consent was obtained from the patient's verbally on the phon e. The patient was placed on 100% oxygen via volume cycle ventilation. He was given Norcuron and At koby prior to procedure. A Pentax bronchoscope was placed in the patient's endotracheal tube through an adaptor. The patient had some mucus plugging present in his endotracheal tube which was easily r emoved. The right mainstem bronchus, right upper lobe, right lower lobe were normal in appearance. Left mainstem bronchus, left upper lobe, left lower lobe were normal in appearance. Some minor lavag e was done to clear some scant mucoid secretions. He tolerated the procedure well.
--- NOTE | 2018-09-20 17:11 | PDOC.PN ---
- Subjective Encounter Start Date: 09/20/18 Encounter Start Time: 09:40 Pt seen for followup re: acute resp failure with hypoxia. Intubated, unable to complete ROS. - Objective Resuscitation Status: Resuscitation Status FULL:Full Resuscitation MAR Reviewed: Yes Vital Signs & Weight: Vital Signs (12 hours) Pulse Resp BP 09/20/18 14:36 50 L 209/85 H 09/20/18 14:02 46 L 209/85 H 09/20/18 10:02 51 L 145/53 H 09/20/18 07:22 55 L 182/87 H 09/20/18 06:45 58 L 182/87 H 09/20/18 06:00 22 H 09/20/18 05:21 46 L Weight Admit Weight 244 lb 2.944 oz Weight 266 lb 1.567 oz Most Recent Monitor Data Heart Rate from ECG 49 NIBP 184/71 NIBP BP-Mean 108 Respiration from ECG 18 SpO2 93 I&O: 09/19/18 09/20/18 09/21/18 06:59 06:59 06:59 Intake Total 2047.5 3998 Output Total 5 1525 Balance -7.5 2473 Result Diagrams: 09/20/18 05:19 09/20/18 05:19 Additional Labs: Accuchecks 09/20/18 09/20/18 09/20/18 11:50 05:40 00:56 POC Glucose 118 H 111 H 99 09/19/18 18:01 POC Glucose 114 H EKG Reviewed by me: Yes (Tele: NSR) Phys Exam - Physical Examination Obesity HEENT: moist MMs Respiratory: clear to auscultation bilateral Cardiovascular: RRR Gastrointestinal: soft Neurological: moves all 4 limbs Deviation from normal: Unable to assess Dx/Plan (1) Acute respiratory failure with hypoxia Code(s): J96.01 - ACUTE RESPIRATORY FAILURE WITH HYPOXIA Status: Acute Comment: continue antibiotics as below (2) Diabetes type 2, controlled Code(s): E11.9 - TYPE 2 DIABETES MELLITUS WITHOUT COMPLICATIONS Status: Chronic Comment: controlled, continue insulin sliding scale (3) Dyslipidemia Code(s): E78.5 - HYPERLIPIDEMIA, UNSPECIFIED Status: Chronic Comment: resume statin (4) Hypertension Code(s): I10 - ESSENTIAL (PRIMARY) HYPERTENSION Status: Chronic Comment: continue PRN IV hydralazine - Plan * . Review of Systems - Medications/Allergies Allergies/Adverse Reactions: Allergies Allergy/AdvReac Type Severity Reaction Status Date / Time tramadol Allergy Verified 09/12/18 13:29 Medications: Current Medications Acetaminophen (Tylenol) 650 mg PO Q4H PRN PRN Reason: Headache/Fever/Mild Pain (1-3) Last Admin: 09/18/18 14:21 Dose: 650 mg Amlodipine Besylate (Norvasc) 5 mg PER TUBE DAILY [facility] Last Admin: 09/20/18 07:22 Dose: 5 mg Artificial Tears (Tears Naturale) 2 drop EA EYE PRN PRN PRN Reason: Dry Eyes Aspirin (Aspirin Chewable) 81 mg PO DAILY [facility] Last Admin: 09/20/18 07:23 Dose: 81 mg Bisacodyl (Dulcolax) 10 mg [place] DAILYPRN PRN PRN Reason: Constipation Calcium Carbonate (Tums) 1,000 mg PO Q4H PRN PRN Reason: Heartburn or Indigestion Dextrose/Water (Dextrose 50%) 25 gm SLOW IVP PRN PRN PRN Reason: Hypoglycemia Enoxaparin Sodium (Lovenox) 40 mg SC 0900 [facility] Last Admin: 09/20/18 07:21 Dose: 40 mg Glucagon (Glucagon) 1 mg IM PRN PRN PRN Reason: Hypoglycemia Hydralazine HCl (Apresoline) 10 mg SLOW IVP Q4H PRN PRN Reason: SBP > 180 and HR < 70 Last Admin: 09/20/18 14:02 Dose: 10 mg Dextrose/Water (D5w) 1,000 mls @ 0 mls/hr IV .Q0M PRN PRN Reason: Hypoglycemia Piperacillin Sod/Tazobactam (Sod 3.375 gm/ Sodium Chloride) 100 mls @ 200 mls/ hr IVPB Q6HR [facility] Last Admin: 09/20/18 16:46 Dose: 100 mls Levetiracetam 500 mg/ Device 100 mls @ 200 mls/hr IVPB BID [facility] Last Admin: 09/20/18 07:26 Dose: 100 mls Fentanyl Citrate 2,000 mcg/ (Sodium Chloride) 100 mls @ 0 mls/hr IV INF [facility]; Protocol Stop: 10/13/18 01:51 Last Admin: 09/17/18 02:18 Dose: 100 mls Fentanyl Citrate (Fentanyl Bolus) 250 mls @ 0 mls/hr IVPB PRN PRN PRN Reason: Breakthrough pain/agitation Stop: 10/13/18 01:51 Potassium Chloride 40 meq/ (Sodium Chloride) 270 mls @ 135 mls/hr IVPB ASDIR PRN PRN Reason: FOR SERUM K+ 2.5 - 3.5 Potassium Chloride 40 meq/ (Device) 100 mls @ 50 mls/hr IVPB ASDIR PRN PRN Reason: FOR SERUM K+ 2.5 - 3.5 Last Admin: 09/20/18 07:49 Dose: 100 mls Magnesium Sulfate 1 gm/ Sodium (Chloride) 102 mls @ 102 mls/hr IV PRN PRN PRN Reason: MAG LEVEL 1.4 - 2.0 Magnesium Sulfate 2 gm/ Device 100 mls @ 100 mls/hr IVPB ASDIR PRN PRN Reason: MAGNESIUM < 1.4 Potassium Phosphate 9 mmol/ (Sodium Chloride) 103 mls @ 25.75 mls/hr IVPB ASDIR PRN PRN Reason: Phosphate 1.0-1.8 Potassium Phosphate 12 mmol/ (Sodium Chloride) 254 mls @ 63.5 mls/hr IV ASDIR PRN PRN Reason: Serum phosphate 0.5-0.9 Potassium Phosphate 15 mmol/ (Sodium Chloride) 255 mls @ 63.75 mls/hr IV ASDIR PRN PRN Reason: Serum Phos < 0.5 Thiamine HCl 100 mg/ Sodium (Chloride) 51 mls @ 100 mls/hr IVPB 0900 [facility] Last Admin: 09/20/18 09:04 Dose: 51 mls Dexmedetomidine HCl 400 mcg/ (Sodium Chloride) 100 mls @ 0 mls/hr IVPB INF [facility] ; Protocol Last Admin: 09/20/18 16:51 Dose: 100 mls Insulin Human Lispro (Humalog) 0 units SC .MODERATE SLIDING SC PRN PRN Reason: Moderate Correctional Scale Insulin Human Lispro (Humalog) 0 units SC .BEDTIME SLIDING SC PRN PRN Reason: Bedtime Correctional Scale Labetalol HCl (Normodyne) 20 mg SLOW IVP Q4H PRN PRN Reason: SBP > 180 and HR >/= 70 Lisinopril (Zestril) 40 mg PER TUBE DAILY [facility] Last Admin: 09/20/18 07:22 Dose: 40 mg Loperamide HCl (Imodium) 2 mg PO PRN PRN PRN Reason: Diarrhea/Loose Stools Last Admin: 09/18/18 08:40 Dose: 2 mg Lorazepam (Ativan) 2 mg SLOW IVP Q1H PRN PRN Reason: Breakthrough agitation Stop: 10/13/18 01:51 Last Admin: 09/20/18 08:40 Dose: 2 mg Magnesium Oxide (Magnesium Oxide) 400 mg PO BIDPRN PRN PRN Reason: FOR SERUM MAG 1.4 - 2.0 Last Admin: 09/17/18 05:06 Dose: 400 mg Magnesium Oxide (Magnesium Oxide) 800 mg PO PRN PRN PRN Reason: FOR SERUM MAG < 1.4 Metoclopramide HCl (Reglan) 10 mg IVP 0200,0800,1400,2000 [facility] Last Admin: 09/20/18 14:02 Dose: 10 mg Mineral Oil/White Petrolatum (Eucerin Cream) 0 gm TOP BIDPRN PRN PRN Reason: Dry Skin Miscellaneous Medication (Phos-Nak) 1 pkt PO TIDPRN PRN PRN Reason: FOR PHOS LEVEL 1.0 - 1.8 Miscellaneous Medication (Phos-Nak) 2 pkt PO TIDPRN PRN PRN Reason: FOR PHOS LEVEL 0.5 - 1.0 Discontinue Previous Narcotic Pain Medications And Benzodiazepines 1 each FS .ONE [facility] Stop: 10/13/18 01:51 Ondansetron HCl (Zofran Odt) 4 mg PO Q6H PRN PRN Reason: Nausea/Vomiting Ondansetron HCl (Zofran) 4 mg IVP Q6H PRN PRN Reason: Nausea/Vomiting Pantoprazole Sodium (Protonix) 40 mg IVP DAILY [facility] Last Admin: 09/20/18 07:21 Dose: 40 mg Polyethylene Glycol (Miralax) 17 gm PO DAILY [facility] Last Admin: 09/20/18 07:22 Dose: 17 gm Potassium Chloride (K-Dur) 40 meq PO ASDIR PRN PRN Reason: FOR SERUM K+ 2.5 - 3.5 Potassium Chloride (Klor-Con) 40 meq PER TUBE ASDIR PRN PRN Reason: FOR SERUM K+ 2.5-3.5 Last Admin: 09/17/18 05:06 Dose: 40 meq Pramipexole Dihydrochloride (Mirapex) 0.25 mg PO BID [facility] Last Admin: 09/20/18 07:22 Dose: 0.25 mg Propofol (Diprivan) 1,000 mg IV INF PRN; Protocol PRN Reason: TO ACHIEVE GOAL RASS Stop: 10/13/18 01:51 Last Admin: 09/20/18 16:48 Dose: 1,000 mg Propofol (Diprivan Bolus) 20 mg IV Q5MIN PRN PRN Reason: BREAKTHROUGH AGITATION Stop: 10/13/18 01:51 Sodium Chloride ([place] Nasal [place] 0.65%) 0 ml EA NARE QIDPRN PRN PRN Reason: Nasal Congestion Sodium Chloride (Flush - Normal Saline) 10 ml IVF Q12HR [facility] Last Admin: 09/20/18 07:23 Dose: 10 ml Sodium Chloride (Flush - Normal Saline) 10 ml IVF PRN PRN PRN Reason: Saline Flush Last Admin: 09/14/18 10:37 Dose: 10 ml Throat Lozenges (Cepastat Lozenges) 1 john PO Q2H PRN PRN Reason: Sore Throat Valproic Acid (Depakene Liquid) 500 mg PER TUBE TID [facility] Last Admin: 09/20/18 16:46 Dose: 500 mg
[2018-09-20] MEDS: Atorvastatin Calcium 40 MG TAB PO SCH (21:50)
[2018-09-21] MEDS: hydrALAZINE 20 MG/ML VIAL SLOW IVP PRN ×3 (00:06→17:27)
[2018-09-21] MEDS: Metoclopramide HCl 10 MG/2 ML VIAL IVP SCH (01:51)
[2018-09-21] MEDS: Propofol 1,000 MG/100 ML VIAL IV PRN ×7 (03:57→23:26)
[2018-09-21] MEDS: Piperacillin/Tazobactam 3.375 GM in Sodium Chloride 0.9% 100 ML IVPB SCH (05:37)
[2018-09-21 06:01] LABS: #Eosinphils 0.5 thou/uL (0.0-0.7); #Lymphocytes 2.5 thou/uL (1.20-3.40); #Monocytes 1.1 thou/uL (0.11-0.59); #Neutrophils 7.1 thou/uL (1.40-6.50); %Basophils 0.4 % (0.0-1.0); %Eosinophils 4.1 % (0.0-10.0); %Lymphocytes 22.1 % (21.0-51.0); %Monocytes 9.5 % (0.0-10.0); %Neutrophils 63.9 % (42.0-75.0); Hemoglobin 10.5 g/dL (14.0-18.0); Mean Corpuscular HGB CONC 31.2 g/dL (32.0-36.0); Mean Corpuscular Hemoglobin 29.8 pg (27.0-31.0); Mean Corpuscular Volume 95.4 fL (78.0-98.0); Mean Platelet Volume 6.3 fL (7.4-10.4); Platelet Count 448 thou/uL (130-400); RBC Distribution Width 13.4 % (11.5-14.5); Red Blood Cell (RBC) Count 3.53 mill/uL (4.70-6.10); White Blood Cell (WBC) Count 11.1 thou/uL (4.8-10.8)
[2018-09-21 06:19] LABS: Anion Gap 10 mmol/L (10-20); BUN (Urea Nitrogen) 11 mg/dL (8.4-25.7); Calc. Creatinine Clearance 163 mL/min (70-130); Calcium 9.4 mg/dL (7.8-10.44); Carbon Dioxide 27 mmol/L (23-31); Chloride 114 mmol/L (98-107); Estimated GFR-MDRD Greater than 90; Glucose 124 mg/dL (80-115); Potassium 3.2 mmol/L (3.5-5.1); Sodium 148 mmol/L (136-145)
[2018-09-21] MEDS: Lorazepam 2 MG/ML VIAL SLOW IVP PRN ×3 (06:44→20:32)
--- NOTE | 2018-09-21 07:27 | PDOC.PULCC ---
CCU Progress Note: Subj/Obj - Subjective Date: 09/21/18 Time: 07:25 Subjective: Very agitated and labored today - Objective Allergies/Adverse Reactions: Allergies Allergy/AdvReac Type Severity Reaction Status Date / Time tramadol Allergy Verified 09/12/18 13:29 Medications: reviewed MAR Reviewed: Yes Vital Signs and I&O: Vital Signs Temp 98.5 F 09/21/18 04:00 Pulse 54 L 09/21/18 05:36 Resp 18 09/21/18 00:00 BP 178/76 H 09/21/18 03:12 Pulse Ox 96 09/20/18 20:00 Intake & Output 09/20/18 09/21/18 09/21/18 18:59 06:59 18:59 Intake Total 2041 1635 Output Total 950 1040 Balance 1091 595 Weight 266 lb 1.567 oz Intake: Intake, IV Amount 1015 874 Dexmedetomidine 400 mcg 174 206 In Sodium Chloride 0.9% 96 ml @ Per Protocol IVPB INF [facility] Rx#:[id number] Propofol 1000 mg (See 257 268 Protocol) IV INF PRN Rx#: [id number] Sodium Chloride 0.9% 10 584 400 ml IVF PRN PRN Rx#: [id number] Oral Supplement 160 100 Tube Feeding 329 261 Tube Irrigant 537 400 Output: Output, Baker 950 1040 Other: Voiding Method Indwelling Catheter Indwelling Catheter Vent Setting: SIMV 18/500/peep8/50% Spontaneous Breathing Test: not done (Right fem triple lumen) CCU Progress Note: Exam - Physical Exam Deviation from normal: labored HEENT: PERRLA, sclera anicteric Neck: no nodes, no JVD Cardiovascular: RRR Respiratory: rhonchi Gastrointestinal: soft, non-tender Musculoskeletal: edema present Neurological: moves all 4 limbs Deviation from normal: Bilateral below the elbow amputations Deviation from normal: agitated Skin: no rash CCU Progress Note: Data - Labs Result Diagrams: 09/21/18 05:30 09/21/18 05:30 Lab results: Laboratory Results 09/19/18 09/19/18 09/20/18 11:55 18:01 00:56 WBC RBC Hgb Hct MCV MCH MCHC RDW Plt Count MPV Neutrophils % Lymphocytes % Monocytes % Eosinophils % Basophils % Neutrophils # Lymphocytes # Monocytes # Eosinophils # Basophils # Sodium Potassium Chloride Carbon Dioxide Anion Gap BUN Creatinine Estimated GFR (MDRD) Glucose POC Glucose 101 114 H 99 Calcium Total Bilirubin Direct Bilirubin AST ALT Alkaline Phosphatase Serum Total Protein Albumin 09/20/18 09/20/18 09/20/18 05:19 05:19 05:19 WBC 10.0 RBC 3.45 L Hgb 10.4 L Hct 33.3 L MCV 96.4 MCH 30.2 MCHC 31.4 L RDW 13.2 Plt Count 450 H MPV 6.6 L Neutrophils % 62.1 Lymphocytes % 21.0 Monocytes % 9.5 Eosinophils % 6.8 Basophils % 0.6 Neutrophils # 6.2 Lymphocytes # 2.1 Monocytes # 1.0 H Eosinophils # 0.7 Basophils # 0.1 Sodium 145 Potassium 3.3 L Chloride 109 H Carbon Dioxide 31 Anion Gap 8 L BUN 11 Creatinine 0.74 Estimated GFR (MDRD) Greater than 90 Glucose 123 H POC Glucose Calcium 9.1 Total Bilirubin 0.2 Direct Bilirubin 0.2 AST 28 ALT 20 Alkaline Phosphatase 74 Serum Total Protein 6.8 Albumin 3.2 L 09/20/18 09/20/18 09/20/18 05:40 11:50 17:48 WBC RBC Hgb Hct MCV MCH MCHC RDW Plt Count MPV Neutrophils % Lymphocytes % Monocytes % Eosinophils % Basophils % Neutrophils # Lymphocytes # Monocytes # Eosinophils # Basophils # Sodium Potassium Chloride Carbon Dioxide Anion Gap BUN Creatinine Estimated GFR (MDRD) Glucose POC Glucose 111 H 118 H 117 H Calcium Total Bilirubin Direct Bilirubin AST ALT Alkaline Phosphatase Serum Total Protein Albumin 09/21/18 09/21/18 09/21/18 00:12 05:30 05:30 WBC 11.1 H RBC 3.53 L Hgb 10.5 L Hct 33.7 L MCV 95.4 MCH 29.8 MCHC 31.2 L RDW 13.4 Plt Count 448 H MPV 6.3 L Neutrophils % 63.9 Lymphocytes % 22.1 Monocytes % 9.5 Eosinophils % 4.1 Basophils % 0.4 Neutrophils # 7.1 H Lymphocytes # 2.5 Monocytes # 1.1 H Eosinophils # 0.5 Basophils # 0.0 Sodium 148 H Potassium 3.2 L Chloride 114 H Carbon Dioxide 27 Anion Gap 10 BUN 11 Creatinine 0.75 Estimated GFR (MDRD) Greater than 90 Glucose 124 H POC Glucose 124 H Calcium 9.4 Total Bilirubin Direct Bilirubin AST ALT Alkaline Phosphatase Serum Total Protein Albumin 09/21/18 05:48 WBC RBC Hgb Hct MCV MCH MCHC RDW Plt Count MPV Neutrophils % Lymphocytes % Monocytes % Eosinophils % Basophils % Neutrophils # Lymphocytes # Monocytes # Eosinophils # Basophils # Sodium Potassium Chloride Carbon Dioxide Anion Gap BUN Creatinine Estimated GFR (MDRD) Glucose POC Glucose 115 H Calcium Total Bilirubin Direct Bilirubin AST ALT Alkaline Phosphatase Serum Total Protein Albumin - ABG Interpretation ABG Results: ABG pH 7.44 (7.35-7.45) 09/18/18 07:40 ABG pCO2 43.2 mmHg (35.0-45.0) 09/18/18 07:40 ABG O2 Sat Calc/Eugenio 94.9 % (94.0-98.0) 09/18/18 07:40 ABG Base Excess 4.2 mEq/L (-2.0 to +3.0) H 09/18/18 07:40 - Radiology Interpretation Chest x-ray Status: image reviewed by me (better aeration than yesterday) CCU Progress Note: A/P - Problems (1) Acute respiratory failure with hypoxia Current Visit: Yes Status: Acute Code(s): J96.01 - ACUTE RESPIRATORY FAILURE WITH HYPOXIA (2) Seizure Current Visit: Yes Status: Acute Code(s): R56.9 - UNSPECIFIED CONVULSIONS (3) Sepsis with acute organ dysfunction Current Visit: Yes Status: Acute Code(s): A41.9 - SEPSIS, UNSPECIFIED ORGANISM; R65.20 - SEVERE SEPSIS WITHOUT SEPTIC SHOCK (4) Alcohol abuse Current Visit: Yes Status: Chronic Code(s): F10.10 - ALCOHOL ABUSE, UNCOMPLICATED (5) Anxiety and depression Current Visit: Yes Status: Chronic Code(s): F41.9 - ANXIETY DISORDER, UNSPECIFIED; F32.9 - MAJOR DEPRESSIVE DISORDER, SINGLE EPISODE, UNSPECIFIED - Time Spent with Patient Time (minutes): 35 (critical care time) - Plan Plan: In my opinion, he will need tracheostomy and PEG tube to facilitate weaning. Very difficult to sedate. Has a free water deficit, but is clinically fluid overloaded
--- NOTE | 2018-09-21 09:10 | RAD ---
SINGLE VIEW OF THE CHEST: Comparison: 09-20-18 History: Ventilated patient with respiratory failure. FINDINGS: Single view of the chest shows an enlarged but stable cardiomediastinal silhouette. The endotracheal tube and NG tube are unchanged in position. There are bilateral veil like opacities with adjacent ate lectasis versus infiltrate. These are unchanged. IMPRESSION: Stable bilateral pleural effusions with adjacent atelectasis versus infiltrate. POS: [facility]
[2018-09-21] MEDS: Pantoprazole 40 MG VIAL IVP SCH (09:35)
[2018-09-21] MEDS: Pramipexole Di-HCl 0.25 MG TAB PO SCH ×2 (09:37→20:41)
[2018-09-21] MEDS: Enoxaparin Sodium 40 MG/0.4 ML SYRINGE SC SCH (09:37)
[2018-09-21] MEDS: Ziprasidone 60 MG CAP PER TUBE SCH (09:37)
[2018-09-21] MEDS: Lisinopril 20 MG TAB PER TUBE SCH (09:38)
[2018-09-21] MEDS: Meropenem 2 GM, Admixture Fee 1 EACH in Sodium Chloride 0.9% 100 ML IVPB SCH ×3 (09:39→23:39)
[2018-09-21] MEDS: Amlodipine 5 MG TAB PER TUBE SCH (09:39)
[2018-09-21] MEDS: Loperamide HCl 2 MG CAP PO PRN ×2 (09:39→20:41)
[2018-09-21] MEDS: Valproate Sodium 250 mg/5 ml UD Cup PER TUBE SCH ×3 (09:40→20:42)
[2018-09-21] MEDS: Polyethylene Glycol 3350 17 GM Packet PO SCH (09:40)
[2018-09-21] MEDS: Lorazepam 1 MG TAB PER TUBE SCH ×3 (10:34→23:38)
--- NOTE | 2018-09-21 17:49 | PDOC.PN ---
- Subjective Encounter Start Date: 09/21/18 Encounter Start Time: 09:20 Pt seen for followup re: acute hypoxic respiratory failure. Intubated, unable to obtain ROS. - Objective Resuscitation Status: Resuscitation Status FULL:Full Resuscitation MAR Reviewed: Yes Vital Signs & Weight: Vital Signs (12 hours) Temp Pulse Resp BP Pulse Ox 09/21/18 17:27 62 188/77 H 09/21/18 15:38 62 164/77 H 09/21/18 14:00 18 09/21/18 12:50 53 L 185/81 H 09/21/18 12:00 98.8 F 18 09/21/18 10:38 50 L 09/21/18 10:00 18 09/21/18 09:39 89 150/89 H 09/21/18 09:38 150/89 H 09/21/18 08:00 45 H 100 09/21/18 07:16 89 150/89 H Weight Admit Weight 244 lb 2.944 oz Weight 253 lb Most Recent Monitor Data Heart Rate from ECG 60 NIBP 188/77 NIBP BP-Mean 114 Respiration from ECG 18 SpO2 100 I&O: 09/20/18 09/21/18 09/22/18 06:59 06:59 06:59 Intake Total 3998 3676 120 Output Total 1525 1990 630 Balance 2473 1686 -510 Result Diagrams: 09/21/18 05:30 09/21/18 05:30 Additional Labs: Accuchecks 09/21/18 09/21/18 09/21/18 11:14 05:48 00:12 POC Glucose 120 H 115 H 124 H 09/20/18 17:48 POC Glucose 117 H EKG Reviewed by me: Yes (Tele: NSR) Phys Exam - Physical Examination Obese, intubated HEENT: moist MMs Respiratory: clear to auscultation bilateral Cardiovascular: RRR Gastrointestinal: soft Neurological: moves all 4 limbs Deviation from normal: Unable to assess Dx/Plan (1) Acute respiratory failure with hypoxia Code(s): J96.01 - ACUTE RESPIRATORY FAILURE WITH HYPOXIA Status: Acute Comment: Pt intubated, in CCU. Will likely need tracheostomy. (2) Diabetes type 2, controlled Code(s): E11.9 - TYPE 2 DIABETES MELLITUS WITHOUT COMPLICATIONS Status: Chronic Comment: controlled (3) Dyslipidemia Code(s): E78.5 - HYPERLIPIDEMIA, UNSPECIFIED Status: Chronic Comment: continue statin (4) Hypertension Code(s): I10 - ESSENTIAL (PRIMARY) HYPERTENSION Status: Chronic Comment: continue PRN IV hydralazine - Plan * . Review of Systems - Medications/Allergies Allergies/Adverse Reactions: Allergies Allergy/AdvReac Type Severity Reaction Status Date / Time tramadol Allergy Verified 09/12/18 13:29 Medications: Current Medications Acetaminophen (Tylenol) 650 mg PO Q4H PRN PRN Reason: Headache/Fever/Mild Pain (1-3) Last Admin: 09/18/18 14:21 Dose: 650 mg Amlodipine Besylate (Norvasc) 5 mg PER TUBE DAILY COUNTS INCLUDE 234 BEDS AT THE [facility] Last Admin: 09/21/18 09:39 Dose: 5 mg Artificial Tears (Tears Naturale) 2 drop EA EYE PRN PRN PRN Reason: Dry Eyes Aspirin (Aspirin Chewable) 81 mg PO DAILY COUNTS INCLUDE 234 BEDS AT THE [facility] Last Admin: 09/21/18 09:36 Dose: 81 mg Atorvastatin Calcium (Lipitor) 40 mg PO HS COUNTS INCLUDE 234 BEDS AT THE [facility] Last Admin: 09/20/18 21:50 Dose: 40 mg Bisacodyl (Dulcolax) 10 mg NE DAILYPRN PRN PRN Reason: Constipation Calcium Carbonate (Tums) 1,000 mg PO Q4H PRN PRN Reason: Heartburn or Indigestion Dextrose/Water (Dextrose 50%) 25 gm SLOW IVP PRN PRN PRN Reason: Hypoglycemia Enoxaparin Sodium (Lovenox) 40 mg SC 0900 COUNTS INCLUDE 234 BEDS AT THE [facility] Last Admin: 09/21/18 09:37 Dose: 40 mg Glucagon (Glucagon) 1 mg IM PRN PRN PRN Reason: Hypoglycemia Hydralazine HCl (Apresoline) 10 mg SLOW IVP Q4H PRN PRN Reason: SBP > 180 and HR < 70 Last Admin: 09/21/18 17:27 Dose: 10 mg Dextrose/Water (D5w) 1,000 mls @ 0 mls/hr IV .Q0M PRN PRN Reason: Hypoglycemia Levetiracetam 500 mg/ Device 100 mls @ 200 mls/hr IVPB BID COUNTS INCLUDE 234 BEDS AT THE [facility] Last Admin: 09/21/18 09:39 Dose: 100 mls Fentanyl Citrate 2,000 mcg/ (Sodium Chloride) 100 mls @ 0 mls/hr IV INF FRANCISCO; Protocol Stop: 10/13/18 01:51 Last Admin: 09/17/18 02:18 Dose: 100 mls Fentanyl Citrate (Fentanyl Bolus) 250 mls @ 0 mls/hr IVPB PRN PRN PRN Reason: Breakthrough pain/agitation Stop: 10/13/18 01:51 Potassium Chloride 40 meq/ (Sodium Chloride) 270 mls @ 135 mls/hr IVPB ASDIR PRN PRN Reason: FOR SERUM K+ 2.5 - 3.5 Potassium Chloride 40 meq/ (Device) 100 mls @ 50 mls/hr IVPB ASDIR PRN PRN Reason: FOR SERUM K+ 2.5 - 3.5 Last Admin: 09/20/18 07:49 Dose: 100 mls Magnesium Sulfate 1 gm/ Sodium (Chloride) 102 mls @ 102 mls/hr IV PRN PRN PRN Reason: MAG LEVEL 1.4 - 2.0 Magnesium Sulfate 2 gm/ Device 100 mls @ 100 mls/hr IVPB ASDIR PRN PRN Reason: MAGNESIUM < 1.4 Potassium Phosphate 9 mmol/ (Sodium Chloride) 103 mls @ 25.75 mls/hr IVPB ASDIR PRN PRN Reason: Phosphate 1.0-1.8 Potassium Phosphate 12 mmol/ (Sodium Chloride) 254 mls @ 63.5 mls/hr IV ASDIR PRN PRN Reason: Serum phosphate 0.5-0.9 Potassium Phosphate 15 mmol/ (Sodium Chloride) 255 mls @ 63.75 mls/hr IV ASDIR PRN PRN Reason: Serum Phos < 0.5 Meropenem 2 gm/ Miscellaneous Medication 1 each/ Sodium Chloride 100 mls @ 200 mls/hr IVPB 0800,1600,2359 COUNTS INCLUDE 234 BEDS AT THE [facility] Last Admin: 09/21/18 17:27 Dose: 100 mls Insulin Human Lispro (Humalog) 0 units SC .MODERATE SLIDING SC PRN PRN Reason: Moderate Correctional Scale Insulin Human Lispro (Humalog) 0 units SC .BEDTIME SLIDING SC PRN PRN Reason: Bedtime Correctional Scale Labetalol HCl (Normodyne) 20 mg SLOW IVP Q4H PRN PRN Reason: SBP > 180 and HR >/= 70 Lisinopril (Zestril) 40 mg PER TUBE DAILY COUNTS INCLUDE 234 BEDS AT THE [facility] Last Admin: 09/21/18 09:38 Dose: 40 mg Loperamide HCl (Imodium) 2 mg PO PRN PRN PRN Reason: Diarrhea/Loose Stools Last Admin: 09/21/18 09:39 Dose: 2 mg Lorazepam (Ativan) 2 mg SLOW IVP Q1H PRN PRN Reason: Breakthrough agitation Stop: 10/13/18 01:51 Last Admin: 09/21/18 06:44 Dose: 2 mg Lorazepam (Ativan) 2 mg PER TUBE Q6HR COUNTS INCLUDE 234 BEDS AT THE [facility] Last Admin: 09/21/18 17:27 Dose: 2 mg Magnesium Oxide (Magnesium Oxide) 400 mg PO BIDPRN PRN PRN Reason: FOR SERUM MAG 1.4 - 2.0 Last Admin: 09/17/18 05:06 Dose: 400 mg Magnesium Oxide (Magnesium Oxide) 800 mg PO PRN PRN PRN Reason: FOR SERUM MAG < 1.4 Mineral Oil/White Petrolatum (Eucerin Cream) 0 gm TOP BIDPRN PRN PRN Reason: Dry Skin Miscellaneous Medication (Phos-Nak) 1 pkt PO TIDPRN PRN PRN Reason: FOR PHOS LEVEL 1.0 - 1.8 Miscellaneous Medication (Phos-Nak) 2 pkt PO TIDPRN PRN PRN Reason: FOR PHOS LEVEL 0.5 - 1.0 Discontinue Previous Narcotic Pain Medications And Benzodiazepines 1 each FS .ONE COUNTS INCLUDE 234 BEDS AT THE [facility] Stop: 10/13/18 01:51 Ondansetron HCl (Zofran Odt) 4 mg PO Q6H PRN PRN Reason: Nausea/Vomiting Ondansetron HCl (Zofran) 4 mg IVP Q6H PRN PRN Reason: Nausea/Vomiting Pantoprazole Sodium (Protonix) 40 mg IVP DAILY COUNTS INCLUDE 234 BEDS AT THE [facility] Last Admin: 09/21/18 09:35 Dose: 40 mg Polyethylene Glycol (Miralax) 17 gm PO DAILY COUNTS INCLUDE 234 BEDS AT THE [facility] Last Admin: 09/21/18 09:40 Dose: Not Given Potassium Chloride (K-Dur) 40 meq PO ASDIR PRN PRN Reason: FOR SERUM K+ 2.5 - 3.5 Potassium Chloride (Klor-Con) 40 meq PER TUBE ASDIR PRN PRN Reason: FOR SERUM K+ 2.5-3.5 Last Admin: 09/21/18 09:37 Dose: 40 meq Pramipexole Dihydrochloride (Mirapex) 0.25 mg PO BID COUNTS INCLUDE 234 BEDS AT THE [facility] Last Admin: 09/21/18 09:37 Dose: 0.25 mg Propofol (Diprivan) 1,000 mg IV INF PRN; Protocol PRN Reason: TO ACHIEVE GOAL RASS Stop: 10/13/18 01:51 Last Admin: 09/21/18 17:42 Dose: 1,000 mg Propofol (Diprivan Bolus) 20 mg IV Q5MIN PRN PRN Reason: BREAKTHROUGH AGITATION Stop: 10/13/18 01:51 Sodium Chloride ([place] Nasal Andreas 0.65%) 0 ml EA NARE QIDPRN PRN PRN Reason: Nasal Congestion Sodium Chloride (Flush - Normal Saline) 10 ml IVF Q12HR COUNTS INCLUDE 234 BEDS AT THE [facility] Last Admin: 09/21/18 09:40 Dose: 10 ml Sodium Chloride (Flush - Normal Saline) 10 ml IVF PRN PRN PRN Reason: Saline Flush Last Admin: 09/14/18 10:37 Dose: 10 ml Thiamine HCl (Thiamine) 100 mg PER TUBE DAILY COUNTS INCLUDE 234 BEDS AT THE [facility] Last Admin: 09/21/18 09:38 Dose: 100 mg Throat Lozenges (Cepastat Lozenges) 1 john PO Q2H PRN PRN Reason: Sore Throat Valproic Acid (Depakene Liquid) 500 mg PER TUBE TID COUNTS INCLUDE 234 BEDS AT THE [facility] Last Admin: 09/21/18 15:11 Dose: 500 mg Ziprasidone (Geodon) 60 mg PER TUBE [facility] Last Admin: 09/21/18 09:37 Dose: 60 mg
[2018-09-21] MEDS: Atorvastatin Calcium 40 MG TAB PO SCH (20:42)
[2018-09-21] MEDS: fentaNYL Citrate/PF 2,000 MCG in Sodium Chloride 0.9% 60 ML IV SCH (23:22)
[2018-09-22] MEDS: Propofol 1,000 MG/100 ML VIAL IV PRN ×6 (03:01→19:35)
[2018-09-22] MEDS: Lorazepam 1 MG TAB PER TUBE SCH ×3 (05:52→18:14)
[2018-09-22 06:16] LABS: Anion Gap 8 mmol/L (10-20); BUN (Urea Nitrogen) 10 mg/dL (8.4-25.7); Calc. Creatinine Clearance 162 mL/min (70-130); Calcium 9.3 mg/dL (7.8-10.44); Carbon Dioxide 29 mmol/L (23-31); Chloride 113 mmol/L (98-107); Estimated GFR-MDRD Greater than 90; Glucose 108 mg/dL (80-115); Potassium 3.4 mmol/L (3.5-5.1); Sodium 147 mmol/L (136-145)
[2018-09-22 06:54] LABS: #Eosinphils 0.4 thou/uL (0.0-0.7); #Lymphocytes 2.9 thou/uL (1.20-3.40); #Monocytes 1.3 thou/uL (0.11-0.59); #Neutrophils 6.9 thou/uL (1.40-6.50); %Basophils 0.2 % (0.0-1.0); %Eosinophils 3.8 % (0.0-10.0); %Lymphocytes 25.1 % (21.0-51.0); %Monocytes 11.6 % (0.0-10.0); %Neutrophils 59.3 % (42.0-75.0); Hemoglobin 10.4 g/dL (14.0-18.0); Mean Corpuscular Hemoglobin 29.7 pg (27.0-31.0); Mean Platelet Volume 6.1 fL (7.4-10.4); Platelet Count 419 thou/uL (130-400); RBC Distribution Width 13.6 % (11.5-14.5); White Blood Cell (WBC) Count 11.6 thou/uL (4.8-10.8)
--- NOTE | 2018-09-22 07:25 | PDOC.PULCC ---
CCU Progress Note: Subj/Obj - Subjective Date: 09/22/18 Time: 07:24 Subjective: Pt about the same. Requiring increased RR on vent, primarily due to coughing - Objective Allergies/Adverse Reactions: Allergies Allergy/AdvReac Type Severity Reaction Status Date / Time tramadol Allergy Verified 09/12/18 13:29 MAR Reviewed: Yes Vital Signs and I&O: Vital Signs Temp 98.6 F 09/22/18 04:00 Pulse 83 09/22/18 07:04 Resp 18 09/22/18 06:00 BP 194/88 H 09/22/18 07:04 Pulse Ox 98 09/21/18 20:00 Intake & Output 09/21/18 09/22/18 09/22/18 18:59 06:59 18:59 Intake Total 1404 1532 Output Total 780 935 70 Balance 624 597 -70 Weight 253 lb 268 lb 15.423 oz Intake: Intake, IV Amount 864 743 Dexmedetomidine 400 mcg 111 In Sodium Chloride 0.9% 96 ml @ Per Protocol IVPB INF FRANCISCO Rx#:[id number] Propofol 1000 mg (See 332 439 Protocol) IV INF PRN Rx#: [id number] Sodium Chloride 0.9% 10 421 304 ml IVF PRN PRN Rx#: [id number] Oral Supplement 200 Tube Feeding 220 419 Tube Irrigant 320 170 Output: Output, Baker 780 935 70 Other: Voiding Method Indwelling Catheter Indwelling Catheter # Bowel Movements 1 1 1 Vent Setting: SIMV 18/600/peep8/ps13/50% Spontaneous Breathing Test: not done Lines (incl Aterial, CVC, PICC+Insertion date): R fem triple lumen CCU Progress Note: Exam - Physical Exam Constitutional: NAD HEENT: PERRLA, sclera anicteric Neck: no nodes, no JVD Cardiovascular: RRR Focused Respiratory Location: decreased breath sounds: Right, Left Gastrointestinal: soft, non-tender Musculoskeletal: edema present Neurological: moves all 4 limbs Lymphatic: no nodes Skin: no rash CCU Progress Note: Data - Labs Result Diagrams: 09/22/18 06:45 09/22/18 05:50 Lab results: Laboratory Results 09/20/18 09/20/18 09/21/18 11:50 17:48 00:12 WBC RBC Hgb Hct MCV MCH MCHC RDW Plt Count MPV Neutrophils % Lymphocytes % Monocytes % Eosinophils % Basophils % Neutrophils # Lymphocytes # Monocytes # Eosinophils # Basophils # Sodium Potassium Chloride Carbon Dioxide Anion Gap BUN Creatinine Estimated GFR (MDRD) Glucose POC Glucose 118 H 117 H 124 H Calcium 09/21/18 09/21/18 09/21/18 05:30 05:30 05:48 WBC 11.1 H RBC 3.53 L Hgb 10.5 L Hct 33.7 L MCV 95.4 MCH 29.8 MCHC 31.2 L RDW 13.4 Plt Count 448 H MPV 6.3 L Neutrophils % 63.9 Lymphocytes % 22.1 Monocytes % 9.5 Eosinophils % 4.1 Basophils % 0.4 Neutrophils # 7.1 H Lymphocytes # 2.5 Monocytes # 1.1 H Eosinophils # 0.5 Basophils # 0.0 Sodium 148 H Potassium 3.2 L Chloride 114 H Carbon Dioxide 27 Anion Gap 10 BUN 11 Creatinine 0.75 Estimated GFR (MDRD) Greater than 90 Glucose 124 H POC Glucose 115 H Calcium 9.4 09/21/18 09/21/18 09/21/18 11:14 17:34 23:57 WBC RBC Hgb Hct MCV MCH MCHC RDW Plt Count MPV Neutrophils % Lymphocytes % Monocytes % Eosinophils % Basophils % Neutrophils # Lymphocytes # Monocytes # Eosinophils # Basophils # Sodium Potassium Chloride Carbon Dioxide Anion Gap BUN Creatinine Estimated GFR (MDRD) Glucose POC Glucose 120 H 100 79 Calcium 09/22/18 09/22/18 09/22/18 05:49 05:50 06:45 WBC 11.6 H RBC 3.50 L Hgb 10.4 L Hct 33.6 L MCV 96.0 MCH 29.7 MCHC 31.0 L RDW 13.6 Plt Count 419 H MPV 6.1 L Neutrophils % 59.3 Lymphocytes % 25.1 Monocytes % 11.6 H Eosinophils % 3.8 Basophils % 0.2 Neutrophils # 6.9 H Lymphocytes # 2.9 Monocytes # 1.3 H Eosinophils # 0.4 Basophils # 0.0 Sodium 147 H Potassium 3.4 L Chloride 113 H Carbon Dioxide 29 Anion Gap 8 L BUN 10 Creatinine 0.72 Estimated GFR (MDRD) Greater than 90 Glucose 108 POC Glucose 102 Calcium 9.3 - ABG Interpretation ABG Results: ABG pH 7.44 (7.35-7.45) 09/18/18 07:40 ABG pCO2 43.2 mmHg (35.0-45.0) 09/18/18 07:40 ABG O2 Sat Calc/Eugenio 94.9 % (94.0-98.0) 09/18/18 07:40 ABG Base Excess 4.2 mEq/L (-2.0 to +3.0) H 09/18/18 07:40 - Radiology Interpretation Chest x-ray Status: image reviewed by me (rotated to the right, ? infiltrate on right) CCU Progress Note: A/P - Problems (1) Acute respiratory failure with hypoxia Current Visit: Yes Status: Acute Code(s): J96.01 - ACUTE RESPIRATORY FAILURE WITH HYPOXIA (2) Seizure Current Visit: Yes Status: Acute Code(s): R56.9 - UNSPECIFIED CONVULSIONS (3) Sepsis with acute organ dysfunction Current Visit: Yes Status: Acute Code(s): A41.9 - SEPSIS, UNSPECIFIED ORGANISM; R65.20 - SEVERE SEPSIS WITHOUT SEPTIC SHOCK (4) Alcohol abuse Current Visit: Yes Status: Chronic Code(s): F10.10 - ALCOHOL ABUSE, UNCOMPLICATED (5) Anxiety and depression Current Visit: Yes Status: Chronic Code(s): F41.9 - ANXIETY DISORDER, UNSPECIFIED; F32.9 - MAJOR DEPRESSIVE DISORDER, SINGLE EPISODE, UNSPECIFIED - Time Spent with Patient Time (minutes): 35 (cc time) - Plan Plan: I spoke with his at bedside yesterday. I told her that tracheostomy would be the best feasible option for weaning. She will d/w family. In the mean time , he needs a new central line, because previous one is in femoral and has been there for a while. 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 Not weanable at this time.
--- NOTE | 2018-09-22 07:57 | PDOC.CNTRL ---
Central Line Procedure Note - Procedure Date: 09/22/18 Time: 07:55 - PreProcedure Diagnosis: Poor IV access - PostProcedure Diagnosis: same - Anesthesia Anesthesia: 1% Lidocaine without epinephrine - Description Focused site: subclavian vein: Right Ultrasound guidance: No Patient tolerated procedure: well Procedure in Details: Modified seldinger technique used to place a Right subclavian central line. 3 ports flushed venous blood. Post op CXR pending
--- NOTE | 2018-09-22 08:54 | RAD ---
SINGLE VIEW OF THE CHEST: Comparison: 09-21-18 History: Ventilated patient with respiratory failure. FINDINGS: Single view of the chest shows an enlarged cardiomediastinal silhouette. The endotracheal tube and NG tube are unchanged in position. There is worsening of the right sided pleural effusion. There is a m oderate right and small left pleural effusion with adjacent atelectasis. IMPRESSION: Worsening right pleural effusion. POS: [facility]
--- NOTE | 2018-09-22 09:14 | RAD ---
SINGLE VIEW OF THE CHEST: Comparison: 09-22-18 History: New right sided central line. FINDINGS: Single view of the chest shows an enlarged cardiomediastinal silhouette. Endotracheal tube and NG tub e are unchanged in position. There is a new right subclavian central venous catheter with its tip at the aortocaval junction. No pneumothorax is seen. There is a moderate right and small left pleural ef fusion. IMPRESSION: 1. Status post central line placement without evidence of complication. 2. Bilateral pleural effusions. POS: [facility]
[2018-09-22] MEDS: hydrALAZINE 20 MG/ML VIAL SLOW IVP PRN (09:17)
[2018-09-22] MEDS: Loperamide HCl 2 MG CAP PO PRN (09:20)
[2018-09-22] MEDS: Valproate Sodium 250 mg/5 ml UD Cup PER TUBE SCH ×3 (09:20→21:57)
[2018-09-22] MEDS: Pramipexole Di-HCl 0.25 MG TAB PO SCH ×2 (09:21→21:57)
[2018-09-22] MEDS: Lisinopril 20 MG TAB PER TUBE SCH (09:21)
[2018-09-22] MEDS: Ziprasidone 60 MG CAP PER TUBE SCH (09:21)
[2018-09-22] MEDS: Amlodipine 5 MG TAB PER TUBE SCH (09:22)
[2018-09-22] MEDS: Enoxaparin Sodium 40 MG/0.4 ML SYRINGE SC SCH (09:23)
[2018-09-22] MEDS: Pantoprazole 40 MG VIAL IVP SCH (09:23)
[2018-09-22] MEDS: Polyethylene Glycol 3350 17 GM Packet PO SCH (09:23)
[2018-09-22] MEDS: Meropenem 2 GM, Admixture Fee 1 EACH in Sodium Chloride 0.9% 100 ML IVPB SCH ×2 (09:50→15:47)
[2018-09-22] MEDS: fentaNYL Citrate/PF 2,000 MCG in Sodium Chloride 0.9% 60 ML IV SCH (16:06)
[2018-09-22] MEDS: Atorvastatin Calcium 40 MG TAB PO SCH (21:57)
[2018-09-23] MEDS: Meropenem 2 GM, Admixture Fee 1 EACH in Sodium Chloride 0.9% 100 ML IVPB SCH ×4 (00:21→23:09)
[2018-09-23] MEDS: Acetaminophen 325 MG TAB PO PRN (00:32)
[2018-09-23] MEDS: Lorazepam 1 MG TAB PER TUBE SCH ×5 (02:25→19:57)
[2018-09-23 03:38] LABS: #Eosinphils 0.5 thou/uL (0.0-0.7); #Lymphocytes 2.4 thou/uL (1.20-3.40); #Monocytes 1.3 thou/uL (0.11-0.59); #Neutrophils 5.8 thou/uL (1.40-6.50); %Basophils 0.5 % (0.0-1.0); %Eosinophils 4.9 % (0.0-10.0); %Monocytes 12.5 % (0.0-10.0); %Neutrophils 58.1 % (42.0-75.0); Hemoglobin 9.1 g/dL (14.0-18.0); Mean Corpuscular HGB CONC 31.9 g/dL (32.0-36.0); Mean Corpuscular Hemoglobin 30.6 pg (27.0-31.0); Mean Corpuscular Volume 96.2 fL (78.0-98.0); Mean Platelet Volume 6.4 fL (7.4-10.4); Platelet Count 339 thou/uL (130-400); RBC Distribution Width 13.6 % (11.5-14.5); Red Blood Cell (RBC) Count 2.97 mill/uL (4.70-6.10)
[2018-09-23 03:56] LABS: Anion Gap 12 mmol/L (10-20); BUN (Urea Nitrogen) 10 mg/dL (8.4-25.7); Calc. Creatinine Clearance 165 mL/min (70-130); Calcium 9.1 mg/dL (7.8-10.44); Carbon Dioxide 26 mmol/L (23-31); Chloride 112 mmol/L (98-107); Estimated GFR-MDRD Greater than 90; Glucose 101 mg/dL (80-115); Potassium 3.5 mmol/L (3.5-5.1); Sodium 146 mmol/L (136-145)
[2018-09-23] MEDS ORDERED: Lorazepam 1 MG TAB PER TUBE SCH (07:22)
--- NOTE | 2018-09-23 07:29 | PRG ---
DATE OF SERVICE: 09/23/2018 Thirty-five minutes critical care time. The patient is more awake today. He will follow some commands. PHYSICAL EXAMINATION: VITAL SIGNS: Temperature is 98.8 with a T-max of 100.1, pulse 75, blood pressure 161/87. Intake for 24 hours 1930, output 2024. HEENT: Unremarkable. NECK: No JVD. LUNGS: Clear anteriorly. CARDIOVASCULAR: S1, S2 regular. ABDOMEN: Soft, obese, nontender. EXTREMITIES: Trace edema throughout. LABORATORY DATA: White blood cell count 10, hematocrit 28.6, platelet count 339. Sodium 146, potass ium 3.5, chloride 112, CO2 of 26, BUN 10, creatinine 0.7, glucose 101. Chest x-ray demonstrates bilateral effusions, right greater than left. ASSESSMENT: 1. Acute respiratory failure requiring mechanical ventilation. 2. Inability to wean thus far. 3. Alcohol abuse with symptoms of alcohol withdrawal. 4. Fluid overload. PLAN: 1. Try to dry the patient out today. 2. Adjust ventilator settings. 3. Await response from regarding potential tracheostomy placement.
[2018-09-23] MEDS ORDERED: Furosemide 40 MG/4 ML VIAL SLOW IVP SCH (07:30)
--- NOTE | 2018-09-23 08:27 | PDOC.PN ---
- Subjective Encounter Start Date: 09/22/18 Encounter Start Time: 06:45 -: old records requested/rev Pr seen and exmained, chart reviewed, this is my first visit with this patient awake, on vent No F/c, no n/V/D/C ROS not obtainable, non verbal - Objective Resuscitation Status: Resuscitation Status FULL:Full Resuscitation MAR Reviewed: Yes Vital Signs & Weight: Vital Signs (12 hours) Temp Pulse Resp 09/23/18 08:22 89 09/23/18 06:40 74 09/23/18 06:00 18 09/23/18 04:00 98.8 F 18 09/23/18 02:00 98.6 F 18 09/23/18 01:00 98.9 F 09/23/18 00:00 100.1 F H 18 09/22/18 22:00 18 Weight Admit Weight 244 lb 2.944 oz Weight 268 lb 15.423 oz Most Recent Monitor Data Heart Rate from ECG 75 NIBP 161/87 NIBP BP-Mean 111 Respiration from ECG 10 SpO2 90 I&O: 09/22/18 09/23/18 09/24/18 06:59 06:59 06:59 Intake Total 2936 1961 Output Total 1715 5 Balance 1221 -64 Result Diagrams: 09/23/18 03:25 09/23/18 03:25 Additional Labs: Accuchecks 09/23/18 09/22/18 09/22/18 00:20 18:21 12:52 POC Glucose 101 104 120 H Radiology Reviewed by me: Yes EKG Reviewed by me: Yes Phys Exam - Physical Examination Constitutional: NAD HEENT: PERRLA, moist MMs oral ETT tube Neck: no nodes, no JVD, supple, full ROM Respiratory: no wheezing, no rhonchi Cardiovascular: RRR, no significant murmur, no rub Gastrointestinal: soft, non-tender, positive bowel sounds Musculoskeletal: edema present Neurological: moves all 4 limbs Lymphatic: no nodes Skin: no rash, normal turgor, cap refill <2 seconds Dx/Plan (1) Acute kidney failure Status: Acute Comment: Normalized creatinine. Continue to monitor. Avoid nephrotoxins. (2) Acute respiratory failure with hypoxia Code(s): J96.01 - ACUTE RESPIRATORY FAILURE WITH HYPOXIA Status: Acute Comment: Pt intubated, in CCU. Will likely need tracheostomy. to decide at the end of the week (3) Cardiomyopathy Code(s): I42.9 - CARDIOMYOPATHY, UNSPECIFIED Status: Acute Comment: EF 40-45 % on echo. May need to be re-evaluated with recovery. (4) Demand ischemia of myocardium Code(s): I24.8 - OTHER FORMS OF ACUTE ISCHEMIC HEART DISEASE Status: Acute Comment: Modest. Cards following. EF 45%. (5) Sepsis with acute organ dysfunction Code(s): A41.9 - SEPSIS, UNSPECIFIED ORGANISM; R65.20 - SEVERE SEPSIS WITHOUT SEPTIC SHOCK Status: Acute Comment: Vanc, Zosyn, Rocephin. Likely source is the urinary tract. Bl cx with GPR likely contaminant. Continue to follow cultures. (6) UTI (urinary tract infection) due to urinary indwelling catheter Code(s): T83.511A - I/I REACT D/T INDWELLING URETHRAL CATHETER, INIT; N39.0 - URINARY TRACT INFECTION, SITE NOT SPECIFIED Status: Acute Comment: Vanc/ Roceph/Zosyn. Follow cultures. (7) Alcohol abuse Code(s): F10.10 - ALCOHOL ABUSE, UNCOMPLICATED Status: Chronic Comment: Level of use is unclear. (8) Anxiety and depression Code(s): F41.9 - ANXIETY DISORDER, UNSPECIFIED; F32.9 - MAJOR DEPRESSIVE DISORDER, SINGLE EPISODE, UNSPECIFIED Status: Chronic (9) Diabetes type 2, controlled Code(s): E11.9 - TYPE 2 DIABETES MELLITUS WITHOUT COMPLICATIONS Status: Chronic Comment: controlled (10) Dyslipidemia Code(s): E78.5 - HYPERLIPIDEMIA, UNSPECIFIED Status: Chronic Comment: continue statin (11) Hypertension Code(s): I10 - ESSENTIAL (PRIMARY) HYPERTENSION Status: Chronic Comment: continue PRN IV hydralazine (12) Obesity (BMI 30.0-34.9) Code(s): E66.9 - OBESITY, UNSPECIFIED Status: Chronic - Plan * .
[2018-09-23] MEDS: Pantoprazole 40 MG VIAL IVP SCH (08:47)
[2018-09-23] MEDS: Scopolamine 1.5 mg/72 hour Patch TD SCH (08:47)
[2018-09-23] MEDS: Pramipexole Di-HCl 0.25 MG TAB PO SCH ×2 (08:48→19:58)
[2018-09-23] MEDS: Lisinopril 20 MG TAB PER TUBE SCH (08:48)
[2018-09-23] MEDS: Amlodipine 5 MG TAB PER TUBE SCH (08:48)
[2018-09-23] MEDS: Enoxaparin Sodium 40 MG/0.4 ML SYRINGE SC SCH (08:48)
[2018-09-23] MEDS: Polyethylene Glycol 3350 17 GM Packet PO SCH (08:49)
[2018-09-23] MEDS: Valproate Sodium 250 mg/5 ml UD Cup PER TUBE SCH ×3 (08:50→19:58)
[2018-09-23] MEDS: Ziprasidone 60 MG CAP PER TUBE SCH (08:57)
--- NOTE | 2018-09-23 09:11 | RAD ---
AP VIEW CHEST: HISTORY: Ventilator-dependent patient. FINDINGS: AP view chest is obtained on 09/23/2018. Comparison is made to previous exam from 09/22/2018. AP view chest demonstrates nasogastric and endotracheal tubes to be in place. A right subclavian chelsey tral line is seen. Cardiomegaly noted. A right-sided pleural effusion is seen. Pulmonary vascular congestion noted. No significant interval change is seen since the previous exam. Radiographic appearance of the chest is stable. IMPRESSION: Right-sided pleural effusion and pulmonary vascular congestion. POS: [facility]
[2018-09-23] MEDS: Propofol 1,000 MG/100 ML VIAL IV PRN ×4 (10:04→21:06)
--- NOTE | 2018-09-23 16:04 | PDOC.PN ---
- Subjective Encounter Start Date: 09/23/18 Encounter Start Time: 08:40 Pt seen for followup re: acute hypoxic respiratory failure. Intubated, nonverbal, unable to complete ROS. - Objective Resuscitation Status: Resuscitation Status FULL:Full Resuscitation MAR Reviewed: Yes Vital Signs & Weight: Vital Signs (12 hours) Temp Pulse Resp BP Pulse Ox 09/23/18 15:26 80 09/23/18 14:00 20 09/23/18 13:29 80 09/23/18 12:00 99.8 F H 27 H 09/23/18 10:39 83 09/23/18 10:00 22 H 09/23/18 08:48 89 144/70 H 09/23/18 08:22 89 09/23/18 08:00 100.3 F H 16 95 09/23/18 07:00 100.3 F H 09/23/18 06:40 74 09/23/18 06:00 18 Weight Admit Weight 244 lb 2.944 oz Weight 268 lb 15.423 oz Most Recent Monitor Data Heart Rate from ECG 78 NIBP 181/77 NIBP BP-Mean 111 Respiration from ECG 21 SpO2 97 I&O: 09/22/18 09/23/18 09/24/18 06:59 06:59 06:59 Intake Total 2936 1961 200 Output Total 1718 4 101 Balance 1221 -64 -815 Result Diagrams: 09/23/18 03:25 09/23/18 03:25 Additional Labs: Accuchecks 09/23/18 09/23/18 09/23/18 15:43 09:50 00:20 POC Glucose 98 116 H 101 09/22/18 18:21 POC Glucose 104 EKG Reviewed by me: Yes (Tele: NSR) Phys Exam - Physical Examination Intubated HEENT: moist MMs Respiratory: clear to auscultation bilateral Cardiovascular: RRR Gastrointestinal: soft No spontaneous limb movements Deviation from normal: Unable to assess Dx/Plan (1) Acute respiratory failure with hypoxia Code(s): J96.01 - ACUTE RESPIRATORY FAILURE WITH HYPOXIA Status: Acute Comment: Will likely need tracheostomy, currently intubated (2) Diabetes type 2, controlled Code(s): E11.9 - TYPE 2 DIABETES MELLITUS WITHOUT COMPLICATIONS Status: Chronic Comment: controlled (3) Dyslipidemia Code(s): E78.5 - HYPERLIPIDEMIA, UNSPECIFIED Status: Chronic Comment: continue statin (4) Hypertension Code(s): I10 - ESSENTIAL (PRIMARY) HYPERTENSION Status: Chronic Comment: continue PRN IV hydralazine - Plan * . Review of Systems - Medications/Allergies Allergies/Adverse Reactions: Allergies Allergy/AdvReac Type Severity Reaction Status Date / Time tramadol Allergy Verified 09/12/18 13:29 Medications: Current Medications Acetaminophen (Tylenol) 650 mg PO Q4H PRN PRN Reason: Headache/Fever/Mild Pain (1-3) Last Admin: 09/23/18 00:32 Dose: 650 mg Amlodipine Besylate (Norvasc) 5 mg PER TUBE DAILY [facility] Last Admin: 09/23/18 08:48 Dose: 5 mg Artificial Tears (Tears Naturale) 2 drop EA EYE PRN PRN PRN Reason: Dry Eyes Aspirin (Aspirin Chewable) 81 mg PO DAILY [facility] Last Admin: 09/23/18 08:48 Dose: 81 mg Atorvastatin Calcium (Lipitor) 40 mg PO HS [facility] Last Admin: 09/22/18 21:57 Dose: 40 mg Bisacodyl (Dulcolax) 10 mg MO DAILYPRN PRN PRN Reason: Constipation Calcium Carbonate (Tums) 1,000 mg PO Q4H PRN PRN Reason: Heartburn or Indigestion Dextrose/Water (Dextrose 50%) 25 gm SLOW IVP PRN PRN PRN Reason: Hypoglycemia Enoxaparin Sodium (Lovenox) 40 mg SC 0900 [facility] Last Admin: 09/23/18 08:48 Dose: 40 mg Glucagon (Glucagon) 1 mg IM PRN PRN PRN Reason: Hypoglycemia Hydralazine HCl (Apresoline) 10 mg SLOW IVP Q4H PRN PRN Reason: SBP > 180 and HR < 70 Last Admin: 09/22/18 09:17 Dose: 10 mg Dextrose/Water (D5w) 1,000 mls @ 0 mls/hr IV .Q0M PRN PRN Reason: Hypoglycemia Levetiracetam 500 mg/ Device 100 mls @ 200 mls/hr IVPB BID [facility] Last Admin: 09/23/18 09:00 Dose: 100 mls Fentanyl Citrate 2,000 mcg/ (Sodium Chloride) 100 mls @ 0 mls/hr IV INF FRANCISCO; Protocol Stop: 10/13/18 01:51 Last Admin: 09/22/18 16:06 Dose: 100 mls Fentanyl Citrate (Fentanyl Bolus) 250 mls @ 0 mls/hr IVPB PRN PRN PRN Reason: Breakthrough pain/agitation Stop: 10/13/18 01:51 Potassium Chloride 40 meq/ (Sodium Chloride) 270 mls @ 135 mls/hr IVPB ASDIR PRN PRN Reason: FOR SERUM K+ 2.5 - 3.5 Potassium Chloride 40 meq/ (Device) 100 mls @ 50 mls/hr IVPB ASDIR PRN PRN Reason: FOR SERUM K+ 2.5 - 3.5 Last Admin: 09/20/18 07:49 Dose: 100 mls Magnesium Sulfate 1 gm/ Sodium (Chloride) 102 mls @ 102 mls/hr IV PRN PRN PRN Reason: MAG LEVEL 1.4 - 2.0 Magnesium Sulfate 2 gm/ Device 100 mls @ 100 mls/hr IVPB ASDIR PRN PRN Reason: MAGNESIUM < 1.4 Potassium Phosphate 9 mmol/ (Sodium Chloride) 103 mls @ 25.75 mls/hr IVPB ASDIR PRN PRN Reason: Phosphate 1.0-1.8 Potassium Phosphate 12 mmol/ (Sodium Chloride) 254 mls @ 63.5 mls/hr IV ASDIR PRN PRN Reason: Serum phosphate 0.5-0.9 Potassium Phosphate 15 mmol/ (Sodium Chloride) 255 mls @ 63.75 mls/hr IV ASDIR PRN PRN Reason: Serum Phos < 0.5 Meropenem 2 gm/ Miscellaneous Medication 1 each/ Sodium Chloride 100 mls @ 200 mls/hr IVPB 0800,1600,2359 [facility] Last Admin: 09/23/18 08:37 Dose: 100 mls Insulin Human Lispro (Humalog) 0 units SC .MODERATE SLIDING SC PRN PRN Reason: Moderate Correctional Scale Insulin Human Lispro (Humalog) 0 units SC .BEDTIME SLIDING SC PRN PRN Reason: Bedtime Correctional Scale Labetalol HCl (Normodyne) 20 mg SLOW IVP Q4H PRN PRN Reason: SBP > 180 and HR >/= 70 Last Admin: 09/22/18 07:04 Dose: 20 mg Lisinopril (Zestril) 40 mg PER TUBE DAILY [facility] Last Admin: 09/23/18 08:48 Dose: 40 mg Loperamide HCl (Imodium) 2 mg PO PRN PRN PRN Reason: Diarrhea/Loose Stools Last Admin: 09/22/18 09:20 Dose: 2 mg Lorazepam (Ativan) 1 mg PER TUBE Q6H [facility] Last Admin: 09/23/18 14:34 Dose: 1 mg Magnesium Oxide (Magnesium Oxide) 400 mg PO BIDPRN PRN PRN Reason: FOR SERUM MAG 1.4 - 2.0 Last Admin: 09/17/18 05:06 Dose: 400 mg Magnesium Oxide (Magnesium Oxide) 800 mg PO PRN PRN PRN Reason: FOR SERUM MAG < 1.4 Mineral Oil/White Petrolatum (Eucerin Cream) 0 gm TOP BIDPRN PRN PRN Reason: Dry Skin Miscellaneous Medication (Phos-Nak) 1 pkt PO TIDPRN PRN PRN Reason: FOR PHOS LEVEL 1.0 - 1.8 Miscellaneous Medication (Phos-Nak) 2 pkt PO TIDPRN PRN PRN Reason: FOR PHOS LEVEL 0.5 - 1.0 Discontinue Previous Narcotic Pain Medications And Benzodiazepines 1 each FS .ONE [facility] Stop: 10/13/18 01:51 Ondansetron HCl (Zofran Odt) 4 mg PO Q6H PRN PRN Reason: Nausea/Vomiting Ondansetron HCl (Zofran) 4 mg IVP Q6H PRN PRN Reason: Nausea/Vomiting Pantoprazole Sodium (Protonix) 40 mg IVP DAILY [facility] Last Admin: 09/23/18 08:47 Dose: 40 mg Polyethylene Glycol (Miralax) 17 gm PO DAILY [facility] Last Admin: 09/23/18 08:49 Dose: Not Given Potassium Chloride (K-Dur) 40 meq PO ASDIR PRN PRN Reason: FOR SERUM K+ 2.5 - 3.5 Potassium Chloride (Klor-Con) 40 meq PER TUBE ASDIR PRN PRN Reason: FOR SERUM K+ 2.5-3.5 Last Admin: 09/22/18 09:22 Dose: 40 meq Pramipexole Dihydrochloride (Mirapex) 0.25 mg PO BID [facility] Last Admin: 09/23/18 08:48 Dose: 0.25 mg Propofol (Diprivan) 1,000 mg IV INF PRN; Protocol PRN Reason: TO ACHIEVE GOAL RASS Stop: 10/13/18 01:51 Last Admin: 09/23/18 14:34 Dose: 1,000 mg Propofol (Diprivan Bolus) 20 mg IV Q5MIN PRN PRN Reason: BREAKTHROUGH AGITATION Stop: 10/13/18 01:51 Scopolamine (Transderm Scop) 1.5 mg TD Q3D [facility] Last Admin: 09/23/18 08:47 Dose: 1.5 mg Sodium Chloride (Todd Nasal [place] 0.65%) 0 ml EA NARE QIDPRN PRN PRN Reason: Nasal Congestion Sodium Chloride (Flush - Normal Saline) 10 ml IVF Q12HR [facility] Last Admin: 09/23/18 08:49 Dose: 10 ml Sodium Chloride (Flush - Normal Saline) 10 ml IVF PRN PRN PRN Reason: Saline Flush Last Admin: 09/14/18 10:37 Dose: 10 ml Thiamine HCl (Thiamine) 100 mg PER TUBE DAILY [facility] Last Admin: 09/23/18 08:48 Dose: 100 mg Throat Lozenges (Cepastat Lozenges) 1 john PO Q2H PRN PRN Reason: Sore Throat Valproic Acid (Depakene Liquid) 500 mg PER TUBE TID [facility] Last Admin: 09/23/18 14:34 Dose: 500 mg Ziprasidone (Geodon) 60 mg PER TUBE [facility] Last Admin: 09/23/18 08:57 Dose: 60 mg
[2018-09-23] MEDS: Atorvastatin Calcium 40 MG TAB PO SCH (19:57)
[2018-09-23] MEDS: hydrALAZINE 20 MG/ML VIAL SLOW IVP PRN (20:14)
[2018-09-23] MEDS: fentaNYL Citrate/PF 2,000 MCG in Sodium Chloride 0.9% 60 ML IV SCH (21:09)
[2018-09-24] MEDS: Lorazepam 1 MG TAB PER TUBE SCH ×4 (01:04→22:05)
[2018-09-24] MEDS: Propofol 1,000 MG/100 ML VIAL IV PRN ×5 (01:04→14:56)
[2018-09-24 04:24] LABS: #Eosinphils 0.6 thou/uL (0.0-0.7); #Lymphocytes 2.1 thou/uL (1.20-3.40); #Monocytes 1.4 thou/uL (0.11-0.59); #Neutrophils 9.3 thou/uL (1.40-6.50); %Basophils 0.3 % (0.0-1.0); %Eosinophils 4.8 % (0.0-10.0); %Lymphocytes 15.5 % (21.0-51.0); %Monocytes 10.3 % (0.0-10.0); Hemoglobin 9.5 g/dL (14.0-18.0); Mean Corpuscular HGB CONC 31.7 g/dL (32.0-36.0); Mean Corpuscular Hemoglobin 30.4 pg (27.0-31.0); Mean Corpuscular Volume 95.9 fL (78.0-98.0); Mean Platelet Volume 6.4 fL (7.4-10.4); Platelet Count 354 thou/uL (130-400); RBC Distribution Width 13.5 % (11.5-14.5); Red Blood Cell (RBC) Count 3.13 mill/uL (4.70-6.10); White Blood Cell (WBC) Count 13.5 thou/uL (4.8-10.8)
[2018-09-24 04:40] LABS: Anion Gap 9 mmol/L (10-20); BUN (Urea Nitrogen) 12 mg/dL (8.4-25.7); Calc. Creatinine Clearance 174 mL/min (70-130); Calcium 9.3 mg/dL (7.8-10.44); Carbon Dioxide 28 mmol/L (23-31); Chloride 108 mmol/L (98-107); Estimated GFR-MDRD Greater than 90; Glucose 101 mg/dL (80-115); Potassium 3.6 mmol/L (3.5-5.1); Sodium 141 mmol/L (136-145)
--- NOTE | 2018-09-24 07:41 | PRG ---
DATE OF SERVICE: 09/24/2018 Thirty-five minutes critical care time. The patient remains intubated on mechanical ventilation, but no acute changes overnight. PHYSICAL EXAMINATION: VITAL SIGNS: Temperature is 99.0 with a T-max of 100.3, pulse 64, blood pressure 131/60, 24 hour int gissel 2500, output 2930. HEENT: Remarkable for plethora in his cheeks. NECK: No JVD. LUNGS: Coarse breath sounds. CARDIOVASCULAR: S1 and S2 regular, without murmur. ABDOMEN: Distended. Bowel sounds quiet. EXTREMITIES: No clubbing, cyanosis. Generalized edema throughout. LABORATORY DATA: Sodium 141, potassium 3.6, chloride 108, CO2 of 28, BUN 12, creatinine 0.7, glucose 101, calcium 9.31, white blood cell count 13.5, hematocrit 30.1, platelet count 354. Chest x-ray demonstrates persistent parenchymal changes, particularly in the right lung compared to l eft. ASSESSMENT: 1. Acute respiratory failure with inability to wean. 2. Bilateral pulmonary infiltrates. 3. Alcohol abuse with withdrawal. 4. Probable fluid overload. PLAN: We are going to push for further diuresis of this patient. I had a long discussion with the p sophie's yesterday about how to proceed. I am recommending tracheostomy, but she is not sure th at he would want that. She wants a second opinion from Dr. Fregoso, this weekend he will be rounding. His central line was changed out 2 days ago. He is continuing IV antibiotics for the time being, a lthough there have been no positive cultures. The patient's prognosis is poor and he is not weanable at this time due to agitation when sedation is turned down.
--- NOTE | 2018-09-24 08:08 | RAD ---
SINGLE VIEW CHEST: HISTORY: Ventilated patient with respiratory failure. COMPARISON: 09/23/2018 FINDINGS: A single view of the chest shows an enlarged cardiomediastinal silhouette. The lines and tubes are u nchanged in position. There are bilateral veil-like opacities, right greater than left, which likely represent layering pleural effusions. IMPRESSION: Stable examination. POS: CET
[2018-09-24] MEDS: Enoxaparin Sodium 40 MG/0.4 ML SYRINGE SC SCH (08:51)
[2018-09-24] MEDS: Meropenem 2 GM, Admixture Fee 1 EACH in Sodium Chloride 0.9% 100 ML IVPB SCH ×2 (08:51→16:00)
[2018-09-24] MEDS: Furosemide 40 MG/4 ML VIAL SLOW IVP SCH ×2 (08:51→22:06)
[2018-09-24] MEDS: Pantoprazole 40 MG VIAL IVP SCH (08:51)
[2018-09-24] MEDS: Pramipexole Di-HCl 0.25 MG TAB PO SCH ×2 (08:52→22:06)
[2018-09-24] MEDS: Amlodipine 5 MG TAB PER TUBE SCH (08:52)
[2018-09-24] MEDS: Ziprasidone 60 MG CAP PER TUBE SCH (08:53)
[2018-09-24] MEDS: Lisinopril 20 MG TAB PER TUBE SCH (08:53)
[2018-09-24] MEDS: Valproate Sodium 250 mg/5 ml UD Cup PER TUBE SCH ×3 (08:53→22:07)
[2018-09-24] MEDS: Polyethylene Glycol 3350 17 GM Packet PO SCH (08:54)
[2018-09-24 15:18] LABS: Potassium 3.7 mmol/L (3.5-5.1)
--- NOTE | 2018-09-24 15:29 | PDOC.PN ---
- Subjective Encounter Start Date: 09/24/18 Encounter Start Time: 10:00 Intubated and sedated. - Objective Resuscitation Status: Resuscitation Status FULL:Full Resuscitation Vital Signs & Weight: Vital Signs (12 hours) Temp Pulse Resp BP Pulse Ox 09/24/18 14:15 66 09/24/18 14:00 13 09/24/18 12:39 73 170/81 H 09/24/18 12:00 98.8 F 19 09/24/18 11:00 98.8 F 09/24/18 10:22 65 09/24/18 10:00 11 L 09/24/18 08:53 174/80 H 09/24/18 08:52 74 174/80 H 09/24/18 08:00 99.8 F H 26 H 97 09/24/18 07:23 74 178/86 H 09/24/18 07:00 99.8 F H 09/24/18 06:00 12 09/24/18 04:00 12 Weight Admit Weight 244 lb 2.944 oz Weight 268 lb 15.423 oz Most Recent Monitor Data Heart Rate from ECG 69 NIBP 140/69 NIBP BP-Mean 92 Respiration from ECG 20 SpO2 96 I&O: 09/23/18 09/24/18 09/25/18 06:59 06:59 06:59 Intake Total 1961 2603 600 Output Total 2024 3170 1361 Balance -64 -327 -965 Result Diagrams: 09/24/18 04:06 09/24/18 14:52 Additional Labs: Accuchecks 09/24/18 09/24/18 09/23/18 14:55 10:05 21:38 POC Glucose 98 100 106 09/23/18 15:43 POC Glucose 98 Phys Exam - Physical Examination Intubated and sedated. Respiratory: no wheezing, no rales, no rhonchi Cardiovascular: RRR, no significant murmur Gastrointestinal: soft, non-tender, no distention 1+ edema Dx/Plan (1) Acute respiratory failure with hypoxia Code(s): J96.01 - ACUTE RESPIRATORY FAILURE WITH HYPOXIA Status: Acute Comment: Will likely need tracheostomy, currently intubated (2) Acute kidney failure Status: Acute Comment: Normalized creatinine. Continue to monitor. Avoid nephrotoxins. (3) Demand ischemia of myocardium Code(s): I24.8 - OTHER FORMS OF ACUTE ISCHEMIC HEART DISEASE Status: Acute Comment: Modest. Cards following. EF 45%. (4) Hypomagnesemia Code(s): E83.42 - HYPOMAGNESEMIA Status: Resolved (5) Lactic acidosis Code(s): E87.2 - ACIDOSIS Status: Resolved Comment: Improved. (6) Seizure Code(s): R56.9 - UNSPECIFIED CONVULSIONS Status: Acute Comment: Patient coded on day 2 of admission. Appeared to be having a grand mal seizure. On Keppra. Patient reported 1/2 pint of EtOH intake daily prior to admission. Unclear if this is related to the seizure. (7) Sepsis with acute organ dysfunction Code(s): A41.9 - SEPSIS, UNSPECIFIED ORGANISM; R65.20 - SEVERE SEPSIS WITHOUT SEPTIC SHOCK Status: Acute Comment: Vanc, Zosyn, Rocephin. Likely source is the urinary tract. Bl cx with GPR likely contaminant. Continue to follow cultures. (8) UTI (urinary tract infection) due to urinary indwelling catheter Code(s): T83.511A - I/I REACT D/T INDWELLING URETHRAL CATHETER, INIT; N39.0 - URINARY TRACT INFECTION, SITE NOT SPECIFIED Status: Acute Comment: Vanc/ Roceph/Zosyn. Follow cultures. (9) Alcohol abuse Code(s): F10.10 - ALCOHOL ABUSE, UNCOMPLICATED Status: Chronic Comment: Use confirmed by patient's . (10) Anxiety and depression Code(s): F41.9 - ANXIETY DISORDER, UNSPECIFIED; F32.9 - MAJOR DEPRESSIVE DISORDER, SINGLE EPISODE, UNSPECIFIED Status: Chronic (11) Diabetes type 2, controlled Code(s): E11.9 - TYPE 2 DIABETES MELLITUS WITHOUT COMPLICATIONS Status: Chronic Comment: controlled (12) Dyslipidemia Code(s): E78.5 - HYPERLIPIDEMIA, UNSPECIFIED Status: Chronic Comment: continue statin (13) Hypertension Code(s): I10 - ESSENTIAL (PRIMARY) HYPERTENSION Status: Chronic Comment: continue PRN IV hydralazine (14) Obesity (BMI 30.0-34.9) Code(s): E66.9 - OBESITY, UNSPECIFIED Status: Chronic (15) Urinary retention due to benign prostatic hyperplasia Code(s): N40.1 - BENIGN PROSTATIC HYPERPLASIA WITH LOWER URINARY TRACT SYMP; R33.8 - OTHER RETENTION OF URINE Status: Chronic Comment: Indwelling Baker for 2-3 weeks. Continue Baker. (16) Volume overload Code(s): E87.70 - FLUID OVERLOAD, UNSPECIFIED Status: Acute Comment: Diuresing. (17) Cardiomyopathy Code(s): I42.9 - CARDIOMYOPATHY, UNSPECIFIED Status: Acute Comment: EF 40-45 % on echo. May need to be re-evaluated with recovery. - Plan * Continuing to diurese as possible. The plan is to continue to work toward extubation over the weekend. By Thursday, a decision will need to be made regarding extubation or trach. Patient's family indicated they do not think he would want to pursue a trach.
[2018-09-24] MEDS: Atorvastatin Calcium 40 MG TAB PO SCH (22:05)
[2018-09-25] MEDS: Meropenem 2 GM, Admixture Fee 1 EACH in Sodium Chloride 0.9% 100 ML IVPB SCH ×3 (01:09→14:50)
[2018-09-25] MEDS: fentaNYL Citrate/PF 2,000 MCG in Sodium Chloride 0.9% 60 ML IV SCH (04:12)
[2018-09-25] MEDS: Lorazepam 1 MG TAB PER TUBE SCH ×4 (04:29→22:28)
[2018-09-25 05:51] LABS: #Eosinphils 0.8 thou/uL (0.0-0.7); #Lymphocytes 1.7 thou/uL (1.20-3.40); #Monocytes 1.2 thou/uL (0.11-0.59); #Neutrophils 9.3 thou/uL (1.40-6.50); %Basophils 0.3 % (0.0-1.0); %Eosinophils 6.1 % (0.0-10.0); %Lymphocytes 12.8 % (21.0-51.0); %Monocytes 9.1 % (0.0-10.0); %Neutrophils 71.8 % (42.0-75.0); Hemoglobin 9.6 g/dL (14.0-18.0); Mean Corpuscular HGB CONC 31.3 g/dL (32.0-36.0); Mean Corpuscular Hemoglobin 30.1 pg (27.0-31.0); Mean Platelet Volume 6.8 fL (7.4-10.4); Platelet Count 372 thou/uL (130-400); RBC Distribution Width 13.4 % (11.5-14.5); Red Blood Cell (RBC) Count 3.19 mill/uL (4.70-6.10); White Blood Cell (WBC) Count 12.9 thou/uL (4.8-10.8)
[2018-09-25 06:04] LABS: Anion Gap 11 mmol/L (10-20); BUN (Urea Nitrogen) 19 mg/dL (8.4-25.7); Calc. Creatinine Clearance 155 mL/min (70-130); Calcium 9.4 mg/dL (7.8-10.44); Carbon Dioxide 29 mmol/L (23-31); Chloride 106 mmol/L (98-107); Estimated GFR-MDRD Greater than 90; Glucose 115 mg/dL (80-115); Potassium 3.4 mmol/L (3.5-5.1); Sodium 143 mmol/L (136-145)
[2018-09-25] MEDS: Pantoprazole 40 MG VIAL IVP SCH (08:25)
[2018-09-25] MEDS: Furosemide 40 MG/4 ML VIAL SLOW IVP SCH (08:25)
[2018-09-25] MEDS: Propofol 1,000 MG/100 ML VIAL IV PRN ×3 (08:25→19:21)
[2018-09-25] MEDS: Valproate Sodium 250 mg/5 ml UD Cup PER TUBE SCH ×3 (08:25→22:29)
[2018-09-25] MEDS: Ziprasidone 60 MG CAP PER TUBE SCH (08:26)
[2018-09-25] MEDS: Enoxaparin Sodium 40 MG/0.4 ML SYRINGE SC SCH (08:26)
[2018-09-25] MEDS: Lisinopril 20 MG TAB PER TUBE SCH (08:26)
[2018-09-25] MEDS: Pramipexole Di-HCl 0.25 MG TAB PO SCH ×2 (08:26→22:29)
[2018-09-25] MEDS: Amlodipine 5 MG TAB PER TUBE SCH (08:27)
[2018-09-25] MEDS: Polyethylene Glycol 3350 17 GM Packet PO SCH (08:27)
--- NOTE | 2018-09-25 11:38 | RAD ---
PORTABLE CHEST: HISTORY: Respiratory distress. COMPARISON: 09/24/2018 exam. Endotracheal tube remains in satisfactory position. Right subclavian line is unchanged. Pleural and parenchymal lung changes are stable. IMPRESSION: Stable exam. POS: MICHEL
--- NOTE | 2018-09-25 12:41 | PDOC.PN ---
- Subjective Encounter Start Date: 09/25/18 Encounter Start Time: 10:00 -: non-verbal - Objective Resuscitation Status: Resuscitation Status FULL:Full Resuscitation Vital Signs & Weight: Vital Signs (12 hours) Temp Pulse Resp BP 09/25/18 10:51 55 L 98/42 L 09/25/18 08:27 64 111/48 L 09/25/18 08:26 111/48 L 09/25/18 06:26 64 126/56 L 09/25/18 06:00 21 H 09/25/18 04:00 98.6 F 21 H 09/25/18 02:10 89 09/25/18 02:00 21 H Weight Admit Weight 244 lb 2.944 oz Weight 268 lb 15.423 oz Most Recent Monitor Data Heart Rate from ECG 56 NIBP 98/46 NIBP BP-Mean 63 Respiration from ECG 17 SpO2 98 I&O: 09/24/18 09/25/18 09/26/18 06:59 06:59 05:59 Intake Total 2603 3764 Output Total 2930 3705 Balance -327 59 Result Diagrams: 09/25/18 05:15 09/25/18 05:15 Additional Labs: Accuchecks 09/25/18 09/25/18 09/24/18 05:30 00:27 14:55 POC Glucose 115 H 97 98 Phys Exam - Physical Examination Constitutional: NAD Intubated, sedated. Eyes open, but not interactive. Respiratory: no wheezing, no rales, no rhonchi, clear to auscultation bilateral Cardiovascular: RRR, no significant murmur Gastrointestinal: soft, no distention 1+ edema of feet and legs. Dx/Plan (1) Acute respiratory failure with hypoxia Code(s): J96.01 - ACUTE RESPIRATORY FAILURE WITH HYPOXIA Status: Acute Comment: Will likely need tracheostomy, currently intubated. Family not sure he would want trach and are waiting to see how he does through the weekend. Continuing to attempt diuresis. CXR consistent with pleural effusions. (2) Acute kidney failure Status: Acute Comment: Normalized creatinine. Continue to monitor. Avoid nephrotoxins. (3) Demand ischemia of myocardium Code(s): I24.8 - OTHER FORMS OF ACUTE ISCHEMIC HEART DISEASE Status: Acute Comment: Modest. Cards following. EF 45%. (4) Hypomagnesemia Code(s): E83.42 - HYPOMAGNESEMIA Status: Resolved (5) Lactic acidosis Code(s): E87.2 - ACIDOSIS Status: Resolved Comment: Improved. (6) Seizure Code(s): R56.9 - UNSPECIFIED CONVULSIONS Status: Acute Comment: Patient coded on day 2 of admission. Appeared to be having a grand mal seizure. On Keppra and Depakote. Patient reported 1/2 pint of EtOH intake daily prior to admission. Unclear if this is related to the seizure. (7) Sepsis with acute organ dysfunction Code(s): A41.9 - SEPSIS, UNSPECIFIED ORGANISM; R65.20 - SEVERE SEPSIS WITHOUT SEPTIC SHOCK Status: Acute Comment: Meropenem. Likely source is the urinary tract. Cultures negative for pathogen. (8) UTI (urinary tract infection) due to urinary indwelling catheter Code(s): T83.511A - I/I REACT D/T INDWELLING URETHRAL CATHETER, INIT; N39.0 - URINARY TRACT INFECTION, SITE NOT SPECIFIED Status: Acute Comment: On Meropenem. Negative cultures. (9) Alcohol abuse Code(s): F10.10 - ALCOHOL ABUSE, UNCOMPLICATED Status: Chronic Comment: Use confirmed by patient's . Possibly had some withdrawal seizure/symptoms. (10) Anxiety and depression Code(s): F41.9 - ANXIETY DISORDER, UNSPECIFIED; F32.9 - MAJOR DEPRESSIVE DISORDER, SINGLE EPISODE, UNSPECIFIED Status: Chronic Comment: Depakote. (11) Diabetes type 2, controlled Code(s): E11.9 - TYPE 2 DIABETES MELLITUS WITHOUT COMPLICATIONS Status: Chronic Comment: controlled (12) Dyslipidemia Code(s): E78.5 - HYPERLIPIDEMIA, UNSPECIFIED Status: Chronic Comment: continue statin (13) Hypertension Code(s): I10 - ESSENTIAL (PRIMARY) HYPERTENSION Status: Chronic Comment: continue PRN IV hydralazine (14) Obesity (BMI 30.0-34.9) Code(s): E66.9 - OBESITY, UNSPECIFIED Status: Chronic (15) Urinary retention due to benign prostatic hyperplasia Code(s): N40.1 - BENIGN PROSTATIC HYPERPLASIA WITH LOWER URINARY TRACT SYMP; R33.8 - OTHER RETENTION OF URINE Status: Chronic Comment: Indwelling Baker for 2-3 weeks. Continue Baker. (16) Volume overload Code(s): E87.70 - FLUID OVERLOAD, UNSPECIFIED Status: Acute Comment: Diuresing. (17) Cardiomyopathy Code(s): I42.9 - CARDIOMYOPATHY, UNSPECIFIED Status: Acute Comment: EF 40-45 % on echo. May need to be re-evaluated with recovery. - Plan * Pulm/CC following. * Continue supportive vent management and diuresing to assess ultimately weanability.
[2018-09-25] MEDS ORDERED: Furosemide 100 MG/10 ML VIAL SLOW IVP SCH (12:45)
[2018-09-25] MEDS: Potassium Chloride 40 MEQ in Premix Bag 1 BAG IVPB PRN (13:00)
[2018-09-25] MEDS: Furosemide 100 MG/10 ML VIAL SLOW IVP SCH (14:49)
--- NOTE | 2018-09-25 19:17 | PRG ---
DATE OF SERVICE: 09/25/2018 SUBJECTIVE: Mr. Mclain was evaluated and I also met with his . PHYSICAL EXAMINATION: VITAL SIGNS: Hemodynamically stable. He is sedated, but is awaken. Blood pressure is stable, heart rate 60, respiratory rate is in the 20s. LUNGS: Clear. HEART: Regular rhythm. ABDOMEN: Soft. EXTREMITIES: Without any erythema or significant edema. Intake and output coming in today was positive 59 with 3764 in and 3705 out. IMAGING DATA: Chest radiograph shows diffuse alveolar infiltrates consistent with pulmonary edema. He had 1860 mL of water through his feeding tube . I have discontinued water through his feeding tube. IMPRESSION: 1. Respiratory failure. 2. Noncardiogenic pulmonary edema. 3. Volume overload. I know the weights are not accurate, but he is up significantly from his 244 pounds on admission. His weight now is at 268. I am not sure the weight gain or the initial weights are accurate, but I am sure he is ahead on volume. We met with the and answered all of her questions are planned more aggressively diuresing. I suspect with tracheostomy, will wean from mechanical ventilation. Apparently , he has had an indwelling Baker for several months. The reason is not clear to me. If it was for bladder outlet obstruction, a suprapubic catheter at least temporarily would probably a better option. He also has had limited ability to ambulate since he had a knee replacement earlier this year. He is simply been ambulating around with a walker, it is unclear whether or not he failed to follow through with physical therapy once he was discharged from therapy. In any event, we will proceed forward. His is now considering a tracheostomy and PEG so that she is sure that she has done everything he can for him. I have explained to her that this does not commit her to keeping him in a retirement forever. Care boundaries can be drawn at a later date, but this would hopefully facilitate weaning from mechanical ventilation then allow discontinuation of sedation so we can really truly find out what his wishes are. Critical care time was 30 minutes. [facility] CENTERAkilah
[2018-09-25] MEDS ORDERED: Fentanyl 100 MCG/2 ML VIAL ONE (21:39)
[2018-09-25] MEDS: Atorvastatin Calcium 40 MG TAB PO SCH (22:28)
[2018-09-26] MEDS: Propofol 1,000 MG/100 ML VIAL IV PRN ×5 (00:22→22:13)
[2018-09-26] MEDS: Meropenem 2 GM, Admixture Fee 1 EACH in Sodium Chloride 0.9% 100 ML IVPB SCH ×4 (00:35→23:19)
[2018-09-26] MEDS: fentaNYL Citrate/PF 2,000 MCG in Sodium Chloride 0.9% 60 ML IV SCH (03:13)
[2018-09-26] MEDS: Lorazepam 1 MG TAB PER TUBE SCH ×4 (03:16→20:29)
[2018-09-26] MEDS: Furosemide 100 MG/10 ML VIAL SLOW IVP SCH ×2 (04:44→13:45)
[2018-09-26 05:30] LABS: #Basophils 0.1 thou/uL (0.0-0.2); #Eosinphils 0.5 thou/uL (0.0-0.7); #Lymphocytes 1.4 thou/uL (1.20-3.40); #Neutrophils 8.8 thou/uL (1.40-6.50); %Basophils 0.5 % (0.0-1.0); %Eosinophils 4.5 % (0.0-10.0); %Lymphocytes 12.1 % (21.0-51.0); %Monocytes 8.7 % (0.0-10.0); %Neutrophils 74.1 % (42.0-75.0); Hemoglobin 9.5 g/dL (14.0-18.0); Mean Corpuscular HGB CONC 31.6 g/dL (32.0-36.0); Mean Corpuscular Hemoglobin 30.3 pg (27.0-31.0); Mean Corpuscular Volume 95.9 fL (78.0-98.0); Mean Platelet Volume 6.8 fL (7.4-10.4); Platelet Count 370 thou/uL (130-400); RBC Distribution Width 13.4 % (11.5-14.5); Red Blood Cell (RBC) Count 3.15 mill/uL (4.70-6.10); White Blood Cell (WBC) Count 11.8 thou/uL (4.8-10.8)
[2018-09-26 05:42] LABS: Anion Gap 14 mmol/L (10-20); BUN (Urea Nitrogen) 27 mg/dL (8.4-25.7); Calc. Creatinine Clearance 145 mL/min (70-130); Calcium 9.5 mg/dL (7.8-10.44); Carbon Dioxide 29 mmol/L (23-31); Chloride 106 mmol/L (98-107); Estimated GFR-MDRD Greater than 90; Glucose 115 mg/dL (80-115); Potassium 3.5 mmol/L (3.5-5.1); Sodium 145 mmol/L (136-145)
[2018-09-26] MEDS: Pantoprazole 40 MG VIAL IVP SCH (09:00)
[2018-09-26] MEDS: Enoxaparin Sodium 40 MG/0.4 ML SYRINGE SC SCH (09:09)
[2018-09-26] MEDS: Scopolamine 1.5 mg/72 hour Patch TD SCH (09:10)
[2018-09-26] MEDS: Ziprasidone 60 MG CAP PER TUBE SCH (09:10)
[2018-09-26] MEDS: Pramipexole Di-HCl 0.25 MG TAB PO SCH ×2 (09:14→20:28)
[2018-09-26] MEDS: Polyethylene Glycol 3350 17 GM Packet PO SCH (09:15)
[2018-09-26] MEDS: Valproate Sodium 250 mg/5 ml UD Cup PER TUBE SCH ×3 (09:15→20:28)
--- NOTE | 2018-09-26 10:25 | RAD ---
PORTABLE CHEST: HISTORY: Respiratory distress. COMPARISON: Prior day's exam. FINDINGS: Endotracheal tube remains in satisfactory position. Interstitial alveolar lung changes show some imp rovement, mainly the perihilar lung changes are improved. Some of the changes in the basis are fairl y similar to the prior study. IMPRESSION: Improving perihilar lung change. POS: [facility]
--- NOTE | 2018-09-26 12:32 | PDOC.PN ---
- Subjective Encounter Start Date: 09/26/18 Encounter Start Time: 11:50 -: non-verbal - Objective Resuscitation Status: Resuscitation Status FULL:Full Resuscitation Vital Signs & Weight: Vital Signs (12 hours) Temp Pulse Resp 09/26/18 12:13 73 09/26/18 10:00 16 09/26/18 08:00 99.8 F H 17 09/26/18 06:25 72 09/26/18 05:53 16 09/26/18 04:00 19 09/26/18 02:27 69 09/26/18 02:00 22 H Weight Admit Weight 244 lb 2.944 oz Weight 4.261 oz Most Recent Monitor Data Heart Rate from ECG 70 NIBP 121/65 NIBP BP-Mean 83 Respiration from ECG 25 SpO2 96 I&O: 09/25/18 09/26/18 09/27/18 07:59 06:59 06:59 Intake Total 30 Output Total 745 Balance -715 Result Diagrams: 09/26/18 05:02 09/26/18 05:02 Additional Labs: Accuchecks 09/26/18 09/25/18 09/25/18 05:06 23:46 17:54 POC Glucose 111 H 104 88 Phys Exam - Physical Examination Constitutional: NAD Intubated. Awake. Nods appropriately. Respiratory: no wheezing Tracheal rales. Cardiovascular: RRR, no significant murmur Gastrointestinal: soft, non-tender, no distention, positive bowel sounds Trace edema Follows some commands. Dx/Plan (1) Acute respiratory failure with hypoxia Code(s): J96.01 - ACUTE RESPIRATORY FAILURE WITH HYPOXIA Status: Acute Comment: Will likely need tracheostomy, currently intubated. Family not sure he would want trach and are waiting to see how he does through the weekend. Continuing to attempt diuresis. CXR consistent with pleural effusions. (2) Acute kidney failure Status: Acute Comment: Normalized creatinine. Continue to monitor. Avoid nephrotoxins. (3) Demand ischemia of myocardium Code(s): I24.8 - OTHER FORMS OF ACUTE ISCHEMIC HEART DISEASE Status: Acute Comment: Modest. Cards following. EF 45%. (4) Hypomagnesemia Code(s): E83.42 - HYPOMAGNESEMIA Status: Resolved (5) Lactic acidosis Code(s): E87.2 - ACIDOSIS Status: Resolved Comment: Improved. (6) Seizure Code(s): R56.9 - UNSPECIFIED CONVULSIONS Status: Acute Comment: Patient coded on day 2 of admission. Appeared to be having a grand mal seizure. On Keppra and Depakote. Patient reported 1/2 pint of EtOH intake daily prior to admission. Unclear if this is related to the seizure. (7) Sepsis with acute organ dysfunction Code(s): A41.9 - SEPSIS, UNSPECIFIED ORGANISM; R65.20 - SEVERE SEPSIS WITHOUT SEPTIC SHOCK Status: Acute Comment: Meropenem. Likely source is the urinary tract. Cultures negative for pathogen. (8) UTI (urinary tract infection) due to urinary indwelling catheter Code(s): T83.511A - I/I REACT D/T INDWELLING URETHRAL CATHETER, INIT; N39.0 - URINARY TRACT INFECTION, SITE NOT SPECIFIED Status: Acute Comment: On Meropenem. Negative cultures. (9) Alcohol abuse Code(s): F10.10 - ALCOHOL ABUSE, UNCOMPLICATED Status: Chronic Comment: Use confirmed by patient's . Possibly had some withdrawal seizure/symptoms. (10) Anxiety and depression Code(s): F41.9 - ANXIETY DISORDER, UNSPECIFIED; F32.9 - MAJOR DEPRESSIVE DISORDER, SINGLE EPISODE, UNSPECIFIED Status: Chronic Comment: Depakote. (11) Diabetes type 2, controlled Code(s): E11.9 - TYPE 2 DIABETES MELLITUS WITHOUT COMPLICATIONS Status: Chronic Comment: controlled (12) Dyslipidemia Code(s): E78.5 - HYPERLIPIDEMIA, UNSPECIFIED Status: Chronic Comment: continue statin (13) Hypertension Code(s): I10 - ESSENTIAL (PRIMARY) HYPERTENSION Status: Chronic Comment: continue PRN IV hydralazine (14) Obesity (BMI 30.0-34.9) Code(s): E66.9 - OBESITY, UNSPECIFIED Status: Chronic (15) Urinary retention due to benign prostatic hyperplasia Code(s): N40.1 - BENIGN PROSTATIC HYPERPLASIA WITH LOWER URINARY TRACT SYMP; R33.8 - OTHER RETENTION OF URINE Status: Chronic Comment: Indwelling Baker for 2-3 weeks. Continue Baker. (16) Volume overload Code(s): E87.70 - FLUID OVERLOAD, UNSPECIFIED Status: Acute Comment: Diuresing. (17) Cardiomyopathy Code(s): I42.9 - CARDIOMYOPATHY, UNSPECIFIED Status: Acute Comment: EF 40-45 % on echo. May need to be re-evaluated with recovery. - Plan * Supportive vent management per Pulmonology. * Continue abx coverage for initial sepsis presentation. * Diuresing to determine weanability. Still on PS 15, PEEP 10.
--- NOTE | 2018-09-26 17:28 | PRG ---
DATE OF SERVICE: 09/26/2018 SUBJECTIVE: Mr. Mclain was awake this morning. I discussed tracheostomy with him. He said he was wi lling to undergo tracheostomy if it would help him wean from mechanical ventilation. OBJECTIVE: VITAL SIGNS: Heart rate 73, blood pressure 126/67, respiratory rate is 21. Intake and output was ne gative 1235. LUNGS: Clear anteriorly. HEART: Regular rhythm. ABDOMEN: Soft. EXTREMITIES: Without asymmetry. LABORATORY DATA: White count 11.8, hemoglobin 9.5, platelets 370. Electrolytes are normal. BUN is 27. IMPRESSION AND PLAN: 1. Respiratory failure. 2. Pulmonary edema. 3. Alcohol withdrawal this admission. 4. Renal insufficiency that is recovered. 5. Longstanding indwelling catheter that his tells me it was occluded multiple times, may be a candidate for suprapubic catheter. It is unclear whether or not he has a urologist. His is not at the bedside today. It appears that he is willing to undergo tracheostomy and a PEG to recover. This will be relayed to his . He is medically stable. His ventilatory support will be decreased today. We will continue to follow. Critical care time was 30 minutes.
[2018-09-26] MEDS: Atorvastatin Calcium 40 MG TAB PO SCH (20:29)
[2018-09-27] MEDS: fentaNYL Citrate/PF 2,000 MCG in Sodium Chloride 0.9% 60 ML IV SCH (01:11)
[2018-09-27] MEDS: Lorazepam 1 MG TAB PER TUBE SCH ×4 (01:28→20:36)
[2018-09-27 04:09] LABS: #Basophils 0.1 thou/uL (0.0-0.2); #Eosinphils 0.6 thou/uL (0.0-0.7); #Lymphocytes 1.7 thou/uL (1.20-3.40); #Monocytes 0.8 thou/uL (0.11-0.59); #Neutrophils 4.5 thou/uL (1.40-6.50); %Basophils 1.1 % (0.0-1.0); %Eosinophils 7.7 % (0.0-10.0); %Lymphocytes 21.9 % (21.0-51.0); %Monocytes 10.8 % (0.0-10.0); %Neutrophils 58.3 % (42.0-75.0); Mean Corpuscular HGB CONC 31.8 g/dL (32.0-36.0); Mean Corpuscular Hemoglobin 30.6 pg (27.0-31.0); Mean Corpuscular Volume 96.2 fL (78.0-98.0); Mean Platelet Volume 6.9 fL (7.4-10.4); Platelet Count 342 thou/uL (130-400); RBC Distribution Width 13.1 % (11.5-14.5); Red Blood Cell (RBC) Count 2.95 mill/uL (4.70-6.10); White Blood Cell (WBC) Count 7.6 thou/uL (4.8-10.8)
[2018-09-27 04:26] LABS: Anion Gap 10 mmol/L (10-20); BUN (Urea Nitrogen) 33 mg/dL (8.4-25.7); Calc. Creatinine Clearance 0 mL/min (70-130); Calcium 9.3 mg/dL (7.8-10.44); Carbon Dioxide 33 mmol/L (23-31); Chloride 108 mmol/L (98-107); Estimated GFR-MDRD Greater than 90; Glucose 108 mg/dL (80-115); Potassium 3.2 mmol/L (3.5-5.1); Sodium 148 mmol/L (136-145)
[2018-09-27] MEDS: Propofol 1,000 MG/100 ML VIAL IV PRN ×3 (05:00→21:18)
[2018-09-27] MEDS: Furosemide 100 MG/10 ML VIAL SLOW IVP SCH (05:41)
--- NOTE | 2018-09-27 07:49 | PRG ---
DATE OF SERVICE: 09/27/2018 Thirty-five minutes critical care time. This patient remains intubated on mechanical ventilation. He is actually awake and alert, able to no d and shake his head to questions. PHYSICAL EXAMINATION: VITAL SIGNS: His temperature is 99.5 with a T-max of 99.8, pulse is generally in the 50-60, blood pr essure 142/62, O2 saturation 96%. Total intake for the last 24 hours 2032, output 2420. His weight is 254 after being at a maximum of 268. HEENT: Unremarkable. NECK: No JVD. LUNGS: Clear anteriorly. CARDIOVASCULAR: S1, S2, slightly bradycardic. ABDOMEN: Soft, nontender. Bowel sounds present. EXTREMITIES: He has bilateral below the elbow amputations. LABORATORY DATA: Sodium 148, potassium 3.2, chloride 108, CO2 33, BUN 33, creatinine 0.7, glucose 10 8, white blood cell count 7.6, hematocrit 28.3, platelet count 342. His x-ray shows improvement in the bilateral infiltrates, particularly in the right. ASSESSMENT: 1. Acute respiratory failure requiring mechanical ventilation. 2. Alcohol withdrawal. 3. Fluid overload. PLAN: 1. I will try him on spontaneous breathing this morning and see how he does. He will be reevaluated for the potential extubation. 2. Slow down on his diuresis. 3. Continue meropenem for the time being - can likely be stopped after tomorrow as that will make 7 days. 4. I will speak with the when she comes up here.
[2018-09-27] MEDS: Meropenem 2 GM, Admixture Fee 1 EACH in Sodium Chloride 0.9% 100 ML IVPB SCH ×2 (08:07→16:32)
[2018-09-27] MEDS: Enoxaparin Sodium 40 MG/0.4 ML SYRINGE SC SCH (08:08)
[2018-09-27] MEDS: Ziprasidone 60 MG CAP PER TUBE SCH (08:09)
[2018-09-27] MEDS: Polyethylene Glycol 3350 17 GM Packet PO SCH (08:09)
[2018-09-27] MEDS: Pantoprazole 40 MG VIAL IVP SCH (08:10)
[2018-09-27] MEDS: Pramipexole Di-HCl 0.25 MG TAB PO SCH ×2 (08:10→20:36)
[2018-09-27] MEDS: Valproate Sodium 250 mg/5 ml UD Cup PER TUBE SCH ×3 (08:15→20:37)
--- NOTE | 2018-09-27 09:29 | RAD ---
SINGLE VIEW OF THE CHEST: COMPARISON: 09/26/2018. HISTORY: Ventilated patient with respiratory failure. FINDINGS: A single view of the chest shows an enlarged but stable cardiomediastinal silhouette. The lines and tubes are unchanged in position. There appear to be bilateral pleural effusions with adjacent atelec tasis versus infiltrates. These are stable compared to the prior examination. IMPRESSION: Stable exam. POS: [facility]
[2018-09-27] MEDS: Furosemide 40 MG/4 ML VIAL SLOW IVP SCH (13:39)
[2018-09-27] MEDS ORDERED: Amlodipine 5 MG TAB PER TUBE SCH (19:00)
[2018-09-27] MEDS: Atorvastatin Calcium 40 MG TAB PO SCH (20:36)
--- NOTE | 2018-09-27 21:07 | PDOC.PN ---
- Subjective Encounter Start Date: 09/27/18 Encounter Start Time: 10:00 Intubated, but awake. Nobs. Indicates that he has some discomfort with the Baker. - Objective Resuscitation Status: Resuscitation Status FULL:Full Resuscitation Vital Signs & Weight: Vital Signs (12 hours) Temp Pulse Resp BP Pulse Ox 09/27/18 20:36 77 149/81 H 09/27/18 20:00 100.9 F H 09/27/18 18:00 17 09/27/18 16:00 100.4 F H 16 94 L 09/27/18 14:57 77 161/78 H 09/27/18 14:00 26 H 09/27/18 12:00 99.5 F 17 92 L 09/27/18 10:55 73 160/69 H 09/27/18 10:00 22 H Weight Admit Weight 244 lb 2.944 oz Weight 254 lb 6.4 oz Most Recent Monitor Data Heart Rate from ECG 77 NIBP 149/81 NIBP BP-Mean 103 Respiration from ECG 14 SpO2 93 I&O: 09/26/18 09/27/18 09/28/18 06:59 06:59 06:59 Intake Total 2033 1052 Output Total 2420 5760 Balance -387 -9030 Result Diagrams: 09/27/18 03:48 09/27/18 03:48 Phys Exam - Physical Examination Constitutional: NAD intubated Respiratory: no wheezing, no rales, no rhonchi Cardiovascular: RRR, no significant murmur, no rub Gastrointestinal: soft, non-tender, no distention Musculoskeletal: no edema Dx/Plan (1) Acute respiratory failure with hypoxia Code(s): J96.01 - ACUTE RESPIRATORY FAILURE WITH HYPOXIA Status: Acute Comment: More awake. Participated in the decision process. Plan is for trach and PEG tomorrow. (2) Acute kidney failure Status: Acute Comment: Normalized creatinine. Continue to monitor. Avoid nephrotoxins. (3) Demand ischemia of myocardium Code(s): I24.8 - OTHER FORMS OF ACUTE ISCHEMIC HEART DISEASE Status: Acute Comment: Modest. Cards following. EF 45%. (4) Hypomagnesemia Code(s): E83.42 - HYPOMAGNESEMIA Status: Resolved (5) Lactic acidosis Code(s): E87.2 - ACIDOSIS Status: Resolved Comment: Improved. (6) Seizure Code(s): R56.9 - UNSPECIFIED CONVULSIONS Status: Acute Comment: Patient coded on day 2 of admission. Appeared to be having a grand mal seizure. On Keppra and Depakote. Patient reported 1/2 pint of EtOH intake daily prior to admission. Unclear if this is related to the seizure. (7) Sepsis with acute organ dysfunction Code(s): A41.9 - SEPSIS, UNSPECIFIED ORGANISM; R65.20 - SEVERE SEPSIS WITHOUT SEPTIC SHOCK Status: Acute Comment: Meropenem. Likely source is the urinary tract. Cultures negative for pathogen. (8) UTI (urinary tract infection) due to urinary indwelling catheter Code(s): T83.511A - I/I REACT D/T INDWELLING URETHRAL CATHETER, INIT; N39.0 - URINARY TRACT INFECTION, SITE NOT SPECIFIED Status: Acute Comment: On Meropenem. Negative cultures. (9) Alcohol abuse Code(s): F10.10 - ALCOHOL ABUSE, UNCOMPLICATED Status: Chronic Comment: Use confirmed by patient's . Possibly had some withdrawal seizure/symptoms. (10) Anxiety and depression Code(s): F41.9 - ANXIETY DISORDER, UNSPECIFIED; F32.9 - MAJOR DEPRESSIVE DISORDER, SINGLE EPISODE, UNSPECIFIED Status: Chronic Comment: Depakote. (11) Diabetes type 2, controlled Code(s): E11.9 - TYPE 2 DIABETES MELLITUS WITHOUT COMPLICATIONS Status: Chronic Comment: controlled (12) Dyslipidemia Code(s): E78.5 - HYPERLIPIDEMIA, UNSPECIFIED Status: Chronic Comment: continue statin (13) Hypertension Code(s): I10 - ESSENTIAL (PRIMARY) HYPERTENSION Status: Chronic Comment: continue PRN IV hydralazine (14) Obesity (BMI 30.0-34.9) Code(s): E66.9 - OBESITY, UNSPECIFIED Status: Chronic (15) Urinary retention due to benign prostatic hyperplasia Code(s): N40.1 - BENIGN PROSTATIC HYPERPLASIA WITH LOWER URINARY TRACT SYMP; R33.8 - OTHER RETENTION OF URINE Status: Chronic Comment: Indwelling Baker for 2-3 weeks. Continue Baker. (16) Volume overload Code(s): E87.70 - FLUID OVERLOAD, UNSPECIFIED Status: Acute (17) Cardiomyopathy Code(s): I42.9 - CARDIOMYOPATHY, UNSPECIFIED Status: Acute Comment: EF 40-45 % on echo. May need to be re-evaluated with recovery. - Plan * Trach and PEG tomorrow.
[2018-09-28] MEDS: Meropenem 2 GM, Admixture Fee 1 EACH in Sodium Chloride 0.9% 100 ML IVPB SCH (00:32)
[2018-09-28] MEDS: Lorazepam 1 MG TAB PER TUBE SCH ×4 (01:30→20:47)
[2018-09-28] MEDS: Propofol 1,000 MG/100 ML VIAL IV PRN ×6 (02:13→18:18)
[2018-09-28] MEDS: fentaNYL Citrate/PF 2,000 MCG in Sodium Chloride 0.9% 60 ML IV SCH ×2 (02:15→20:02)
[2018-09-28 05:21] LABS: BUN (Urea Nitrogen) 24 mg/dL (8.4-25.7); Calc. Creatinine Clearance 154 mL/min (70-130); Calcium 9.5 mg/dL (7.8-10.44); Estimated GFR-MDRD Greater than 90; Glucose 106 mg/dL (80-115)
[2018-09-28 05:22] LABS: #Eosinphils 0.6 thou/uL (0.0-0.7); #Lymphocytes 1.8 thou/uL (1.20-3.40); #Neutrophils 4.5 thou/uL (1.40-6.50); %Basophils 0.6 % (0.0-1.0); %Eosinophils 7.4 % (0.0-10.0); %Lymphocytes 22.9 % (21.0-51.0); %Monocytes 12.3 % (0.0-10.0); %Neutrophils 56.9 % (42.0-75.0); Hemoglobin 9.5 g/dL (14.0-18.0); Mean Corpuscular HGB CONC 30.9 g/dL (32.0-36.0); Mean Corpuscular Hemoglobin 29.8 pg (27.0-31.0); Mean Corpuscular Volume 96.4 fL (78.0-98.0); Mean Platelet Volume 6.9 fL (7.4-10.4); Platelet Count 382 thou/uL (130-400); RBC Distribution Width 13.4 % (11.5-14.5); White Blood Cell (WBC) Count 7.8 thou/uL (4.8-10.8)
[2018-09-28 05:30] LABS: Anion Gap 16 mmol/L (10-20); Carbon Dioxide 33 mmol/L (23-31); Chloride 105 mmol/L (98-107); Potassium 3.2 mmol/L (3.5-5.1); Sodium 151 mmol/L (136-145)
[2018-09-28] MEDS: Furosemide 40 MG/4 ML VIAL SLOW IVP SCH (06:13)
[2018-09-28] MEDS: Potassium Chloride 40 MEQ in Premix Bag 1 BAG IVPB PRN (06:18)
[2018-09-28] MEDS ORDERED: Vecuronium 10 MG VIAL IV SCH (07:00)
[2018-09-28] MEDS ORDERED: Sterile Water 10 ML VIAL FS SCH (07:00)
[2018-09-28] MEDS ORDERED: Lidocaine 1% w/Epinephrine 1:100K 20 ML VIAL IJ SCH (07:00)
[2018-09-28] MEDS ORDERED: Midazolam HCl 2 mg/2 ml Vial IVP SCH ×2 (07:00)
[2018-09-28] MEDS ORDERED: Lidocaine 1% (PF) 30 ML VIAL ONE (07:32)
[2018-09-28] MEDS ORDERED: Lidocaine 1% w/Epinephrine 1:100K 20 ML VIAL ONE (07:32)
[2018-09-28] MEDS ORDERED: Vecuronium 10 MG VIAL ONE (07:33)
[2018-09-28] MEDS ORDERED: Sterile Water 10 ML ONE (07:33)
--- NOTE | 2018-09-28 07:38 | PRG ---
DATE OF SERVICE: 09/28/2018 Thirty-five minutes critical care time. The patient remains intubated on mechanical ventilation. There have been no acute changes overnight. PHYSICAL EXAMINATION: VITAL SIGNS: Temperature 99.4, pulse in the 40s to 60s, blood pressure 145/78, O2 sat 95%. Intake f or 24 hours 1180, output 6310. HEENT: Unremarkable. NECK: No JVD. CHEST: Clear anteriorly. CARDIOVASCULAR: S1, S2, slightly bradycardic. ABDOMEN: Soft. EXTREMITIES: Bilateral below the elbow amputation. LABORATORY DATA: White blood cell count 7.8, hematocrit 30.9, platelet count 382. Sodium 151, potas sium 3.2, chloride 105, CO2 33, BUN 24, creatinine 0.7, glucose 106. ASSESSMENT: 1. Persistent acute on chronic hypoxic respiratory failure requiring mechanical ventilation. 2. Alcohol withdrawal. 3. Fluid overload which seems to be better. PLAN: 1. Go ahead and hold the Lasix. 2. Trach and PEG planned for today to help facilitate weaning. 3. Afterward he will need a LTAC referral for weaning and rehabilitation. His prognosis remains gua rded.
[2018-09-28] MEDS: Ziprasidone 60 MG CAP PER TUBE SCH (08:00)
[2018-09-28] MEDS ORDERED: CEFAZOLIN/Water 2 GM/20 ML SYRINGE ONE (08:16)
[2018-09-28] MEDS: Polyethylene Glycol 3350 17 GM Packet PO SCH (09:00)
[2018-09-28] MEDS: Valproate Sodium 250 mg/5 ml UD Cup PER TUBE SCH ×3 (09:00→20:47)
[2018-09-28] MEDS: Amlodipine 5 MG TAB PER TUBE SCH ×2 (09:00→20:44)
[2018-09-28] MEDS: Enoxaparin Sodium 40 MG/0.4 ML SYRINGE SC SCH (09:00)
--- NOTE | 2018-09-28 09:32 | RAD ---
PORTABLE CHEST 1 VIEW: Date: 09/28/18 Time: 0438 hours HISTORY: Respiratory failure. FINDINGS/IMPRESSION: Line and tube placements are unchanged in position. No pneumothoraces are identified. There are bibas ilar infiltrates with accompanying effusions. POS: [facility]
[2018-09-28] MEDS: Lisinopril 20 MG TAB PER TUBE SCH ×2 (12:19→20:44)
[2018-09-28] MEDS: Pramipexole Di-HCl 0.25 MG TAB PO SCH ×2 (12:20→20:47)
[2018-09-28] MEDS: Pantoprazole 40 MG VIAL IVP SCH (12:20)
--- NOTE | 2018-09-28 16:05 | PDOC.PN ---
- Subjective Encounter Start Date: 09/28/18 Encounter Start Time: 13:00 Trached. - Objective Resuscitation Status: Resuscitation Status FULL:Full Resuscitation Vital Signs & Weight: Vital Signs (12 hours) Temp Pulse Resp BP 09/28/18 14:26 57 L 153/74 H 09/28/18 14:00 14 09/28/18 12:19 182/74 H 09/28/18 12:00 99.3 F 14 09/28/18 10:02 50 L 117/59 L 09/28/18 09:00 182/74 H 09/28/18 08:00 98.7 F 09/28/18 07:32 47 L 148/71 H Weight Admit Weight 244 lb 2.944 oz Weight 241 lb 13.553 oz Most Recent Monitor Data Heart Rate from ECG 53 NIBP 153/74 NIBP BP-Mean 100 Respiration from ECG 14 SpO2 94 I&O: 09/27/18 09/28/18 09/29/18 06:59 06:59 06:59 Intake Total 2033 1485 Output Total 6410 5236 1690 Balance -387 -5110 -1690 Result Diagrams: 09/28/18 04:20 09/28/18 04:20 Phys Exam - Physical Examination Constitutional: NAD Appears a little encephalopathic, but awakens and will nod to answer questions. Respiratory: no wheezing, no rales, no rhonchi Cardiovascular: RRR, no significant murmur Gastrointestinal: soft, non-tender, no distention, positive bowel sounds 1+ edema. Dx/Plan (1) Acute respiratory failure with hypoxia Code(s): J96.01 - ACUTE RESPIRATORY FAILURE WITH HYPOXIA Status: Acute Comment: Trach. Continue to wean as tolerated. (2) Acute kidney failure Status: Acute Comment: Normalized creatinine. Continue to monitor. Avoid nephrotoxins. (3) Demand ischemia of myocardium Code(s): I24.8 - OTHER FORMS OF ACUTE ISCHEMIC HEART DISEASE Status: Acute Comment: Modest. Cards following. EF 45%. (4) Hypomagnesemia Code(s): E83.42 - HYPOMAGNESEMIA Status: Resolved (5) Lactic acidosis Code(s): E87.2 - ACIDOSIS Status: Resolved Comment: Improved. (6) Seizure Code(s): R56.9 - UNSPECIFIED CONVULSIONS Status: Acute Comment: Patient coded on day 2 of admission. Appeared to be having a grand mal seizure. On Keppra and Depakote. Patient reported 1/2 pint of EtOH intake daily prior to admission. Unclear if this is related to the seizure. (7) Sepsis with acute organ dysfunction Code(s): A41.9 - SEPSIS, UNSPECIFIED ORGANISM; R65.20 - SEVERE SEPSIS WITHOUT SEPTIC SHOCK Status: Resolved (8) UTI (urinary tract infection) due to urinary indwelling catheter Code(s): T83.511A - I/I REACT D/T INDWELLING URETHRAL CATHETER, INIT; N39.0 - URINARY TRACT INFECTION, SITE NOT SPECIFIED Status: Resolved (9) Alcohol abuse Code(s): F10.10 - ALCOHOL ABUSE, UNCOMPLICATED Status: Chronic Comment: Use confirmed by patient's . Possibly had some withdrawal seizure/symptoms. (10) Anxiety and depression Code(s): F41.9 - ANXIETY DISORDER, UNSPECIFIED; F32.9 - MAJOR DEPRESSIVE DISORDER, SINGLE EPISODE, UNSPECIFIED Status: Chronic Comment: Depakote. (11) Diabetes type 2, controlled Code(s): E11.9 - TYPE 2 DIABETES MELLITUS WITHOUT COMPLICATIONS Status: Chronic Comment: controlled (12) Dyslipidemia Code(s): E78.5 - HYPERLIPIDEMIA, UNSPECIFIED Status: Chronic Comment: continue statin (13) Hypertension Code(s): I10 - ESSENTIAL (PRIMARY) HYPERTENSION Status: Chronic Comment: continue PRN IV hydralazine (14) Obesity (BMI 30.0-34.9) Code(s): E66.9 - OBESITY, UNSPECIFIED Status: Chronic (15) Urinary retention due to benign prostatic hyperplasia Code(s): N40.1 - BENIGN PROSTATIC HYPERPLASIA WITH LOWER URINARY TRACT SYMP; R33.8 - OTHER RETENTION OF URINE Status: Chronic Comment: Indwelling Baker for 2-3 weeks. Continue Baker. (16) Volume overload Code(s): E87.70 - FLUID OVERLOAD, UNSPECIFIED Status: Acute (17) Cardiomyopathy Code(s): I42.9 - CARDIOMYOPATHY, UNSPECIFIED Status: Acute Comment: EF 40-45 % on echo. May need to be re-evaluated with recovery. - Plan * May need consideration for LTACH. Therapy as tolerated.
[2018-09-28] MEDS: Atorvastatin Calcium 40 MG TAB PO SCH (20:47)
[2018-09-28] MEDS: Acetaminophen 325 MG TAB PO PRN (21:49)
--- NOTE | 2018-09-29 00:04 | OP ---
DATE OF OPERATION: 09/28/2018 PREOPERATIVE DIAGNOSES: 1. Acute on chronic hypoxic respiratory failure. 2. History of diabetes mellitus. POSTOPERATIVE DIAGNOSES: 1. Acute on chronic hypoxic respiratory failure. 2. History of diabetes mellitus. PROCEDURES PERFORMED: 1. Percutaneous tracheostomy tube placement. 2. Percutaneous endoscopic gastrostomy tube placement. SURGEON: Jeffery Flanagan D.O. ANESTHESIA: Deep sedation and local. INDICATIONS FOR PROCEDURE: A 68-year-old man with history of diabetes mellitus. Patient has been on mechanical ventilator support for over 2 weeks now following acute aspiration pneumonia. He continu es with persistent hypoxic acute on chronic respiratory failure. I have been asked to place a percut aneous tracheostomy tube, facilitate ventilatory wean in anticipation of rather prolonged mechanical ventilatory support. Gastrostomy tube was also warranted to provide access for enteral nutritional s upplementation. DESCRIPTION OF PROCEDURE: Informed consent obtained from patient's family. Patient was placed in russell pine position. Following adequate sedation with fentanyl and propofol by continuous infusion, patien t is given vecuronium 10 mg intravenously. The ventilator is set at 100% FIO2 full support. Fiberop tic bronchoscope introduced through previous endotracheal tube and advanced to visualize the fady. The tip of the endotracheal tube was withdrawn to 5 cm above the fady transilluminating the anteri or neck. The anterior neck was then sterilely prepped and draped in usual fashion. Skin, two fingerbreadths a dipesh the suprasternal notch was anesthetized with 1% lidocaine with epinephrine. A 1 cm vertical inc ision is made here using a 15 scalpel. Introducer needle was then inserted through this incision, ad vanced through the anterior tracheal wall visualized with bronchoscopy. The guidewire was then passe d through the needle and advanced into the distal tracheal lumen without resistance. The needle was withdrawn over the guidewire. An anterior tracheal wall was then sterilely dilated ov er the guidewire. Finally, a size 8 tracheostomy tube was advanced with a dilator and introducer cat heter over the guidewire and placed into the distal tracheal lumen. The dilator, introducer catheter, and wire were removed as a unit leaving the endotracheal tube in pl augusto. Inner cannula was then inserted. Cuff was inflated, and patient was connected to mechanical ve ntilator support via the newly placed tracheostomy tube. Good tidal volume is returned. Tracheostom y tube is secured to enter neck using old silk suture at 2 points. Sterile dressing was then applied . Trach tie was also applied. The bronchoscope was withdrawn with the endotracheal tube as a unit v isualizing the tracheostomy site from above with good hemostasis. Once the endotracheal tube was rem tanvir, the bronchoscope was reintroduced through the newly placed tracheostomy tube and advanced to vi sualize the fady. No active bleeding was noted as the bronchoscope was withdrawn, visualizing the tracheostomy site from below. The patient tolerated this procedures without any apparent complication and remains hemodynamically s table. Attention was then turned over to the abdomen, which was widely sterilely prepped and draped in the usual fashion for placement of the percutaneous endoscopic gastrostomy tube. With a different gown, gloves, endoscope was advanced per oral intubating the esophagus. With gentle insufflation, t he scope was advanced into the gastric lumen, which was then insufflated. Endoscope was advanced int o the proximal duodenum. No peptic ulcerative disease is noted. The scope was withdrawn into the st omach and transilluminating the left upper quadrant of the abdomen. The area chosen for placement of the gastrostomy tube. He had a skin is anesthetized with 1% lidocaine. A stab incision is made using an 11 scalpel. Intro ducer needle was then inserted through this incision and advanced into the gastric lumen visualized b y endoscopy. Guidewire was advanced into the gastric lumen, captured with an Endo snare, which was t hen pulled out per oral with the endoscope as a unit. The guidewire was connected to 20-Mauritian gastrostomy tube. The distal end of the guidewire was then pulled out through the stab incision and the gastrostomy tube is secured to the intraabdominal wall u sing a bolster at 4 cm at skin. The endoscope was again reintroduced into the gastric lumen, visuali zing the proper seating of the mushroom end of the gastrostomy tube. No active bleeding noted. The stomach was then desufflated. An endoscope was withdrawn, visualizing intact esophageal mucosa. The gastrostomy tube was then fashioned to length. The patient tolerated this procedure without any apparent complication and remains hemodynamically stable following completion of the procedure.
[2018-09-29] MEDS: Propofol 1,000 MG/100 ML VIAL IV PRN (01:00)
[2018-09-29] MEDS: Lorazepam 1 MG TAB PER TUBE SCH (02:12)
[2018-09-29] MEDS: Acetaminophen 325 MG TAB PO PRN (02:16)
[2018-09-29 04:40] LABS: #Basophils 0.1 thou/uL (0.0-0.2); #Eosinphils 0.5 thou/uL (0.0-0.7); #Lymphocytes 2.5 thou/uL (1.20-3.40); #Monocytes 0.9 thou/uL (0.11-0.59); #Neutrophils 5.5 thou/uL (1.40-6.50); %Basophils 0.7 % (0.0-1.0); %Eosinophils 5.1 % (0.0-10.0); %Lymphocytes 26.2 % (21.0-51.0); %Monocytes 9.9 % (0.0-10.0); %Neutrophils 58.2 % (42.0-75.0); Hemoglobin 9.8 g/dL (14.0-18.0); Mean Corpuscular Hemoglobin 30.3 pg (27.0-31.0); Mean Corpuscular Volume 94.4 fL (78.0-98.0); Mean Platelet Volume 6.8 fL (7.4-10.4); Platelet Count 390 thou/uL (130-400); RBC Distribution Width 13.1 % (11.5-14.5); Red Blood Cell (RBC) Count 3.23 mill/uL (4.70-6.10); White Blood Cell (WBC) Count 9.4 thou/uL (4.8-10.8)
[2018-09-29 05:02] LABS: Anion Gap 11 mmol/L (10-20); BUN (Urea Nitrogen) 20 mg/dL (8.4-25.7); Calc. Creatinine Clearance 134 mL/min (70-130); Calcium 9.7 mg/dL (7.8-10.44); Carbon Dioxide 33 mmol/L (23-31); Chloride 107 mmol/L (98-107); Estimated GFR-MDRD Greater than 90; Glucose 99 mg/dL (80-115); Potassium 3.1 mmol/L (3.5-5.1); Sodium 148 mmol/L (136-145)
[2018-09-29] MEDS: Potassium Chloride 40 MEQ in Premix Bag 1 BAG IVPB PRN (05:46)
[2018-09-29] MEDS: Scopolamine 1.5 mg/72 hour Patch TD SCH (07:51)
[2018-09-29] MEDS: Ziprasidone 60 MG CAP PER TUBE SCH (07:52)
--- NOTE | 2018-09-29 07:57 | PRG ---
DATE OF SERVICE: 09/29/2018 Thirty-five minutes critical care time. The patient remains on mechanical ventilation, but now has a tracheostomy. He is able to communicate with his lips. He is trying to exercise his arms today. PHYSICAL EXAMINATION: VITAL SIGNS: His pulse is 83, O2 sat 97%, respiratory rate 27. Last blood pressure 180/97. Intake for the last 24 hours was 1212, output 2975. Weight is down 246 pounds. HEENT: Unremarkable. NECK: Trach in good position. LUNGS: Coarse breath sounds. CARDIOVASCULAR: S1, S2 regular. ABDOMEN: Soft, nontender. EXTREMITIES: No edema. LABORATORY DATA: Sodium 148, potassium 3.1, chloride 107, CO2 33, BUN 20, creatinine 0.8, glucose 99 , calcium 9.7, white blood cell count 9.4, hematocrit 30.5, platelet count 390. Chest x-ray continues to show pulmonary edema. ASSESSMENT: 1. Acute respiratory failure requiring mechanical ventilation and tracheostomy placement. 2. Alcohol withdrawal symptoms which seemed to be better. 3. Fluid overload, which is better. PLAN: 1. I made some adjustments to his pain and anxiety medication regimen including stopping his Depakot e, stopping the scheduled Ativan, stopping his propofol and converting his fentanyl drip to a fentany l patch. 2. Continue to hold diuretics for today. 3. Would not add any free water to his tube feeds at this time as we have been fighting fluid overlo ad for quite some time. 4. Stop the scheduled MiraLax. 5. Initiate LTAC referral.
[2018-09-29] MEDS ORDERED: fentaNYL 50 mcg/hour Patch TD SCH (08:00)
[2018-09-29] MEDS: Amlodipine 5 MG TAB PER TUBE SCH (09:10)
[2018-09-29] MEDS: Lisinopril 20 MG TAB PER TUBE SCH (09:10)
--- NOTE | 2018-09-29 09:11 | RAD ---
PORTABLE AP CHEST X-RAY: 09/29/2018 HISTORY: On ventilator. Follow-up evaluation. COMPARISON: 09/28/2018 FINDINGS: There has been interval removal of the endotracheal tube and placement of a tracheostomy device. The patient is rotated. Moderate-sized right pleural effusion is again present, with a small to moderat e sized left pleural effusion also again noted. Subsegmental atelectasis is present in the left mid lung zone. No other interval change, given patient positioning. Right subclavian central venous cat heter is stable in position. IMPRESSION: 1. Bilateral pleural effusions and atelectasis. The pleural effusion on the right appears larger in size compared to the prior examination. 2. Mild pulmonary vascular congestion. POS: [facility]
[2018-09-29] MEDS: Enoxaparin Sodium 40 MG/0.4 ML SYRINGE SC SCH (09:14)
[2018-09-29] MEDS: Pantoprazole 40 MG GRANULES PACKET PER TUBE SCH (09:19)
[2018-09-29] MEDS: Pramipexole Di-HCl 0.25 MG TAB PO SCH ×2 (09:19→21:10)
[2018-09-29] MEDS: Metamucil PACK PER TUBE SCH ×2 (09:33→21:10)
[2018-09-29] MEDS: Lorazepam 2 MG/ML VIAL SLOW IVP PRN ×3 (10:20→22:15)
[2018-09-29] MEDS ORDERED: PARoxetine 20 MG TAB PO SCH (15:15)
--- NOTE | 2018-09-29 17:49 | PRG ---
DATE OF SERVICE: 09/29/2018 SUBJECTIVE: Mr. Mclain is a 68-year-old man who is postop day #1, status post percutaneous tracheosto my tube placement and percutaneous endoscopic gastrostomy tube placement. He remains on mechanical v entilator support. He has been hemodynamically stable since procedure yesterday. Ventilator weaning is in progress. OBJECTIVE: HEENT: Tracheostomy site is intact, clean, and dry. No hematoma or bleeding. ABDOMEN: Soft, nondistended. The gastrostomy tube site is clean, no hematoma or bleeding present. The PEG tube is actually being used for tube feeds at the moment. IMPRESSION: Postoperative day #1, status post uneventful percutaneous tracheostomy and percutaneous endoscopic gastrostomy tube placements. There is no further surgical indication at this time. [facility] will sign off and be available to reevaluate the patient on demand.
--- NOTE | 2018-09-29 20:53 | PDOC.PN ---
- Subjective Encounter Start Date: 09/29/18 Encounter Start Time: 13:10 Non-verbal, but able to communicate with mouthing words and pointing with his arms. His primary concern seemed to be that the television was turned off when I went in the room. - Objective Resuscitation Status: Resuscitation Status FULL:Full Resuscitation Vital Signs & Weight: Vital Signs (12 hours) Temp Pulse Resp BP Pulse Ox 09/29/18 18:03 84 167/93 H 09/29/18 18:00 32 H 09/29/18 16:00 98.3 F 29 H 09/29/18 14:33 80 144/75 H 09/29/18 14:00 32 H 09/29/18 12:00 99.7 F H 23 H 09/29/18 09:48 96 09/29/18 09:10 81 186/106 H Weight Admit Weight 244 lb 2.944 oz Weight 246 lb 0.574 oz Most Recent Monitor Data Heart Rate from ECG 85 NIBP 167/93 NIBP BP-Mean 117 Respiration from ECG 18 SpO2 97 I&O: 09/28/18 09/29/18 09/30/18 06:59 06:59 06:59 Intake Total 1485 1212.8 623 Output Total 6595 2975 1025 [facility] -5110 -1762.2 -402 Result Diagrams: 09/29/18 04:28 09/29/18 04:28 Phys Exam - Physical Examination Constitutional: NAD Trached. Fully awake. Respiratory: no wheezing, no rales, no rhonchi, clear to auscultation bilateral Cardiovascular: RRR, no significant murmur, no rub Gastrointestinal: soft, non-tender, no distention, positive bowel sounds Musculoskeletal: no edema Bilateral below the elbow amputations. Dx/Plan (1) Acute respiratory failure with hypoxia Code(s): J96.01 - ACUTE RESPIRATORY FAILURE WITH HYPOXIA Status: Acute Comment: Trach. Continue to wean as tolerated. Tolerating trach trials for a while. (2) Acute kidney failure Status: Acute Comment: Normalized creatinine. Continue to monitor. Avoid nephrotoxins. (3) Demand ischemia of myocardium Code(s): I24.8 - OTHER FORMS OF ACUTE ISCHEMIC HEART DISEASE Status: Acute Comment: Modest. Cards following. EF 45%. (4) Hypomagnesemia Code(s): E83.42 - HYPOMAGNESEMIA Status: Resolved (5) Lactic acidosis Code(s): E87.2 - ACIDOSIS Status: Resolved Comment: Improved. (6) Seizure Code(s): R56.9 - UNSPECIFIED CONVULSIONS Status: Acute Comment: Patient coded on day 2 of admission. Appeared to be having a grand mal seizure. On Keppra and Depakote. Patient reported 1/2 pint of EtOH intake daily prior to admission. Unclear if this is related to the seizure. (7) Sepsis with acute organ dysfunction Code(s): A41.9 - SEPSIS, UNSPECIFIED ORGANISM; R65.20 - SEVERE SEPSIS WITHOUT SEPTIC SHOCK Status: Resolved (8) UTI (urinary tract infection) due to urinary indwelling catheter Code(s): T83.511A - I/I REACT D/T INDWELLING URETHRAL CATHETER, INIT; N39.0 - URINARY TRACT INFECTION, SITE NOT SPECIFIED Status: Resolved (9) Alcohol abuse Code(s): F10.10 - ALCOHOL ABUSE, UNCOMPLICATED Status: Chronic Comment: Use confirmed by patient's . Possibly had some withdrawal seizure/symptoms. However, was in rehab after surgery for a couple of weeks prior to this admission and was not drinking during that time. (10) Anxiety and depression Code(s): F41.9 - ANXIETY DISORDER, UNSPECIFIED; F32.9 - MAJOR DEPRESSIVE DISORDER, SINGLE EPISODE, UNSPECIFIED Status: Chronic Comment: Depakote stopped. Resuming his usual dose of Paroxetine and his Seroquel at 50 mg q hs. Takes 100 mg q hs typically. Can be increased if he is not too sedated. (11) Diabetes type 2, controlled Code(s): E11.9 - TYPE 2 DIABETES MELLITUS WITHOUT COMPLICATIONS Status: Chronic Comment: Was on Metformin 500 mg po q day. Has not been on any meds since admission other than SSI which he has not needed. Blood sugars are well within the normal range. (12) Dyslipidemia Code(s): E78.5 - HYPERLIPIDEMIA, UNSPECIFIED Status: Chronic Comment: continue statin (13) Hypertension Code(s): I10 - ESSENTIAL (PRIMARY) HYPERTENSION Status: Chronic Comment: continue PRN IV hydralazine (14) Obesity (BMI 30.0-34.9) Code(s): E66.9 - OBESITY, UNSPECIFIED Status: Chronic (15) Urinary retention due to benign prostatic hyperplasia Code(s): N40.1 - BENIGN PROSTATIC HYPERPLASIA WITH LOWER URINARY TRACT SYMP; R33.8 - OTHER RETENTION OF URINE Status: Chronic Comment: Indwelling Baker for 2-3 weeks prior to admission. Continue Baker. (16) Volume overload Code(s): E87.70 - FLUID OVERLOAD, UNSPECIFIED Status: Resolved (17) Cardiomyopathy Code(s): I42.9 - CARDIOMYOPATHY, UNSPECIFIED Status: Acute Comment: EF 40-45 % on echo. May need to be re-evaluated with recovery. - Plan * Pulmonary continues to wean vent. * Increase activity. * LTACH referral.
[2018-09-29] MEDS: Atorvastatin Calcium 40 MG TAB PO SCH (21:10)
[2018-09-30] MEDS: Lorazepam 2 MG/ML VIAL SLOW IVP PRN ×2 (04:45→12:09)
[2018-09-30 05:19] LABS: #Basophils 0.1 thou/uL (0.0-0.2); #Eosinphils 0.4 thou/uL (0.0-0.7); #Lymphocytes 2.1 thou/uL (1.20-3.40); #Monocytes 0.9 thou/uL (0.11-0.59); #Neutrophils 6.5 thou/uL (1.40-6.50); %Eosinophils 3.7 % (0.0-10.0); %Lymphocytes 21.5 % (21.0-51.0); %Monocytes 8.7 % (0.0-10.0); %Neutrophils 65.1 % (42.0-75.0); Hemoglobin 9.7 g/dL (14.0-18.0); Mean Corpuscular HGB CONC 32.2 g/dL (32.0-36.0); Mean Corpuscular Hemoglobin 30.5 pg (27.0-31.0); Mean Corpuscular Volume 94.8 fL (78.0-98.0); Platelet Count 383 thou/uL (130-400); RBC Distribution Width 13.2 % (11.5-14.5); Red Blood Cell (RBC) Count 3.17 mill/uL (4.70-6.10)
[2018-09-30 05:37] LABS: Anion Gap 9 mmol/L (10-20); BUN (Urea Nitrogen) 20 mg/dL (8.4-25.7); Calc. Creatinine Clearance 141 mL/min (70-130); Calcium 9.6 mg/dL (7.8-10.44); Carbon Dioxide 31 mmol/L (23-31); Chloride 110 mmol/L (98-107); Estimated GFR-MDRD Greater than 90; Glucose 120 mg/dL (80-115); Potassium 3.1 mmol/L (3.5-5.1); Sodium 147 mmol/L (136-145)
--- NOTE | 2018-09-30 07:48 | PRG ---
DATE OF SERVICE: 09/30/2018 He is on mechanical ventilation. He did spend some time yesterday off the ventilator while he was up in a chair. PHYSICAL EXAMINATION: VITAL SIGNS: Temperature is 100.8, pulse 69, blood pressure 151/75. 24 hour intake 1173, output 191 0. Last weight recorded 246 pounds. HEENT: Unremarkable. NECK: No JVD. Trach in good position. LUNGS: Fairly clear. CARDIAC: S1 and S2 regular. ABDOMEN: Soft, nontender. EXTREMITIES: Diminished edema. LABORATORY DATA: White blood cell count 10, hematocrit 30, platelet count 383. Sodium 147, potassiu m 3.1, chloride 110, CO2 31, BUN 20, creatinine 0.8, glucose 120. ASSESSMENT: 1. Acute respiratory failure requiring mechanical ventilation and tracheostomy placement. 2. ICU psychosis. 3. Improved fluid overload. 4. Improved hypernatremia. PLAN: 1. Check magnesium level. 2. Start melatonin and Ambien at night. 3. Discontinue Geodon and pramipexole that may be contributing to some of his psychosis. 4. Up in chair as tolerated. 5. Spontaneous breathing trials and T-collar as tolerated. 6. The patient is probably ready for LTAC at any time.
[2018-09-30] MEDS: Potassium Chloride 40 MEQ in Premix Bag 1 BAG IVPB PRN (09:06)
[2018-09-30] MEDS: Enoxaparin Sodium 40 MG/0.4 ML SYRINGE SC SCH (09:06)
[2018-09-30] MEDS: Amlodipine 5 MG TAB PER TUBE SCH (09:07)
[2018-09-30] MEDS: Pantoprazole 40 MG GRANULES PACKET PER TUBE SCH (09:07)
[2018-09-30] MEDS: Lisinopril 20 MG TAB PER TUBE SCH (09:07)
[2018-09-30] MEDS: PARoxetine 20 MG TAB PO SCH (09:08)
[2018-09-30] MEDS: Metamucil PACK PER TUBE SCH ×2 (09:09→21:32)
--- NOTE | 2018-09-30 11:01 | PDOC.PN ---
- Subjective Encounter Start Date: 09/30/18 Encounter Start Time: 11:00 - Objective Resuscitation Status: Resuscitation Status FULL:Full Resuscitation Vital Signs & Weight: Vital Signs (12 hours) Temp Pulse Resp BP Pulse Ox 09/30/18 10:06 76 09/30/18 10:00 17 09/30/18 09:07 70 159/92 H 09/30/18 08:34 69 09/30/18 08:00 99.7 F H 35 H 97 09/30/18 06:00 16 09/30/18 05:00 100.8 F H 09/30/18 04:00 14 09/30/18 02:15 74 137/73 09/30/18 02:00 27 H 09/30/18 00:00 99.0 F 33 H Weight Admit Weight 244 lb 2.944 oz Weight 244 lb 14.937 oz Most Recent Monitor Data Heart Rate from ECG 72 NIBP 165/75 NIBP BP-Mean 105 Respiration from ECG 21 SpO2 100 I&O: 09/29/18 09/30/18 10/01/18 06:59 06:59 06:59 Intake Total 1212.8 1577 Output Total 2975 2009 245 Balance -1762.2 -433 -245 Result Diagrams: 09/30/18 04:50 09/30/18 04:50 Dx/Plan - Plan Constitutional: NAD Trached. Fully awake. No new c/o Respiratory: no wheezing, no rales, no rhonchi, clear to auscultation bilateral , limited anterior examination Cardiovascular: RRR, no significant murmur, no rub Gastrointestinal: soft, non-tender, no distention, positive bowel sounds Musculoskeletal: no edema Bilateral below the elbow amputations. Dx/Plan (1) Acute respiratory failure with hypoxia Code(s): J96.01 - ACUTE RESPIRATORY FAILURE WITH HYPOXIA Status: Acute Comment: Trach. Continue to wean as tolerated. Tolerating trach trials for a while. (2) Acute kidney failure Status: Acute Comment: Normalized creatinine. Continue to monitor. Avoid nephrotoxins. (3) Demand ischemia of myocardium Code(s): I24.8 - OTHER FORMS OF ACUTE ISCHEMIC HEART DISEASE Status: Acute Comment: Modest. Cards following. EF 45%. (4) Hypomagnesemia Code(s): E83.42 - HYPOMAGNESEMIA Status: Resolved (5) Lactic acidosis Code(s): E87.2 - ACIDOSIS Status: Resolved Comment: Improved. (6) Seizure Code(s): R56.9 - UNSPECIFIED CONVULSIONS Status: Acute Comment: Patient coded on day 2 of admission. Appeared to be having a grand mal seizure. On Keppra and Depakote. Patient reported 1/2 pint of EtOH intake daily prior to admission. Unclear if this is related to the seizure. (7) Sepsis with acute organ dysfunction Code(s): A41.9 - SEPSIS, UNSPECIFIED ORGANISM; R65.20 - SEVERE SEPSIS WITHOUT SEPTIC SHOCK Status: Resolved (8) UTI (urinary tract infection) due to urinary indwelling catheter Code(s): T83.511A - I/I REACT D/T INDWELLING URETHRAL CATHETER, INIT; N39.0 - URINARY TRACT INFECTION, SITE NOT SPECIFIED Status: Resolved (9) Alcohol abuse Code(s): F10.10 - ALCOHOL ABUSE, UNCOMPLICATED Status: Chronic Comment: Use confirmed by patient's . Possibly had some withdrawal seizure/symptoms. However, was in rehab after surgery for a couple of weeks prior to this admission and was not drinking during that time. (10) Anxiety and depression Code(s): F41.9 - ANXIETY DISORDER, UNSPECIFIED; F32.9 - MAJOR DEPRESSIVE DISORDER, SINGLE EPISODE, UNSPECIFIED Status: Chronic Comment: Depakote stopped. Resuming his usual dose of Paroxetine and his Seroquel at 50 mg q hs. Takes 100 mg q hs typically. Can be increased if he is not too sedated. (11) Diabetes type 2, controlled Code(s): E11.9 - TYPE 2 DIABETES MELLITUS WITHOUT COMPLICATIONS Status: Chronic Comment: Was on Metformin 500 mg po q day. Has not been on any meds since admission other than SSI which he has not needed. Blood sugars are well within the normal range. (12) Dyslipidemia Code(s): E78.5 - HYPERLIPIDEMIA, UNSPECIFIED Status: Chronic Comment: continue statin (13) Hypertension Code(s): I10 - ESSENTIAL (PRIMARY) HYPERTENSION Status: Chronic Comment: continue PRN IV hydralazine (14) Obesity (BMI 30.0-34.9) Code(s): E66.9 - OBESITY, UNSPECIFIED Status: Chronic (15) Urinary retention due to benign prostatic hyperplasia Code(s): N40.1 - BENIGN PROSTATIC HYPERPLASIA WITH LOWER URINARY TRACT SYMP; R33.8 - OTHER RETENTION OF URINE Status: Chronic Comment: Indwelling Baker for 2-3 weeks prior to admission. Continue Baker. (16) Volume overload Code(s): E87.70 - FLUID OVERLOAD, UNSPECIFIED Status: Resolved (17) Cardiomyopathy Code(s): I42.9 - CARDIOMYOPATHY, UNSPECIFIED Status: Acute Comment: EF 40-45 % on echo. May need to be re-evaluated with recovery. - Plan * Pulmonary continues to wean vent. * Increase activity - PT, OT * LTACH referral ordered * d/w bedside nsg Review of Systems - Medications/Allergies Allergies/Adverse Reactions: Allergies Allergy/AdvReac Type Severity Reaction Status Date / Time tramadol Allergy Verified 09/12/18 13:29 Medications: Current Medications Acetaminophen (Tylenol) 650 mg PO Q4H PRN PRN Reason: Headache/Fever/Mild Pain (1-3) Last Admin: 09/29/18 02:16 Dose: 650 mg Amlodipine Besylate (Norvasc) 5 mg PER TUBE DAILY [facility] Last Admin: 09/30/18 09:07 Dose: 5 mg Artificial Tears (Tears Naturale) 2 drop EA EYE PRN PRN PRN Reason: Dry Eyes Aspirin (Aspirin Chewable) 81 mg PO DAILY [facility] Last Admin: 09/30/18 09:08 Dose: 81 mg Atorvastatin Calcium (Lipitor) 40 mg PO HS [facility] Last Admin: 09/29/18 21:10 Dose: 40 mg Bisacodyl (Dulcolax) 10 mg ME DAILYPRN PRN PRN Reason: Constipation Calcium Carbonate (Tums) 1,000 mg PO Q4H PRN PRN Reason: Heartburn or Indigestion Dextrose/Water (Dextrose 50%) 25 gm SLOW IVP PRN PRN PRN Reason: Hypoglycemia Enoxaparin Sodium (Lovenox) 40 mg SC 0900 [facility] Last Admin: 09/30/18 09:06 Dose: 40 mg Fentanyl (Duragesic) 50 mcg TD Q3D [facility] Last Admin: 09/29/18 09:09 Dose: 50 mcg Glucagon (Glucagon) 1 mg IM PRN PRN PRN Reason: Hypoglycemia Hydralazine HCl (Apresoline) 10 mg SLOW IVP Q4H PRN PRN Reason: SBP > 180 and HR < 70 Last Admin: 09/23/18 20:14 Dose: 10 mg Dextrose/Water (D5w) 1,000 mls @ 0 mls/hr IV .Q0M PRN PRN Reason: Hypoglycemia Levetiracetam 500 mg/ Device 100 mls @ 200 mls/hr IVPB BID FRANCISCO Last Admin: 09/29/18 21:09 Dose: 100 mls Potassium Chloride 40 meq/ (Sodium Chloride) 270 mls @ 135 mls/hr IVPB ASDIR PRN PRN Reason: FOR SERUM K+ 2.5 - 3.5 Potassium Chloride 40 meq/ (Device) 100 mls @ 50 mls/hr IVPB ASDIR PRN PRN Reason: FOR SERUM K+ 2.5 - 3.5 Last Admin: 09/30/18 09:06 Dose: 100 mls Magnesium Sulfate 1 gm/ Sodium (Chloride) 102 mls @ 102 mls/hr IV PRN PRN PRN Reason: MAG LEVEL 1.4 - 2.0 Magnesium Sulfate 2 gm/ Device 100 mls @ 100 mls/hr IVPB ASDIR PRN PRN Reason: MAGNESIUM < 1.4 Potassium Phosphate 9 mmol/ (Sodium Chloride) 103 mls @ 25.75 mls/hr IVPB ASDIR PRN PRN Reason: Phosphate 1.0-1.8 Potassium Phosphate 12 mmol/ (Sodium Chloride) 254 mls @ 63.5 mls/hr IV ASDIR PRN PRN Reason: Serum phosphate 0.5-0.9 Potassium Phosphate 15 mmol/ (Sodium Chloride) 255 mls @ 63.75 mls/hr IV ASDIR PRN PRN Reason: Serum Phos < 0.5 Insulin Human Lispro (Humalog) 0 units SC .MODERATE SLIDING SC PRN PRN Reason: Moderate Correctional Scale Insulin Human Lispro (Humalog) 0 units SC .BEDTIME SLIDING SC PRN PRN Reason: Bedtime Correctional Scale Labetalol HCl (Normodyne) 20 mg SLOW IVP Q4H PRN PRN Reason: SBP > 180 and HR >/= 70 Last Admin: 09/22/18 07:04 Dose: 20 mg Lisinopril (Zestril) 40 mg PER TUBE DAILY [facility] Last Admin: 09/30/18 09:07 Dose: 40 mg Loperamide HCl (Imodium) 2 mg PO PRN PRN PRN Reason: Diarrhea/Loose Stools Last Admin: 09/22/18 09:20 Dose: 2 mg Lorazepam (Ativan) 1 mg SLOW IVP Q6H PRN PRN Reason: Anxiety/Agitation Last Admin: 09/30/18 04:45 Dose: 1 mg Magnesium Oxide (Magnesium Oxide) 400 mg PO BIDPRN PRN PRN Reason: FOR SERUM MAG 1.4 - 2.0 Last Admin: 09/17/18 05:06 Dose: 400 mg Magnesium Oxide (Magnesium Oxide) 800 mg PO PRN PRN PRN Reason: FOR SERUM MAG < 1.4 Melatonin (Melatonin) 6 mg PO 2100 [facility] Mineral Oil/White Petrolatum (Eucerin Cream) 0 gm TOP BIDPRN PRN PRN Reason: Dry Skin Miscellaneous Medication (Phos-Nak) 1 pkt PO TIDPRN PRN PRN Reason: FOR PHOS LEVEL 1.0 - 1.8 Miscellaneous Medication (Phos-Nak) 2 pkt PO TIDPRN PRN PRN Reason: FOR PHOS LEVEL 0.5 - 1.0 Discontinue Previous Narcotic Pain Medications And Benzodiazepines 1 each FS .ONE [facility] Stop: 10/13/18 01:51 Ondansetron HCl (Zofran Odt) 4 mg PO Q6H PRN PRN Reason: Nausea/Vomiting Ondansetron HCl (Zofran) 4 mg IVP Q6H PRN PRN Reason: Nausea/Vomiting Pantoprazole Sodium (Protonix) 40 mg PER TUBE DAILY [facility] Last Admin: 09/30/18 09:07 Dose: 40 mg Paroxetine HCl (Paxil) 10 mg PO DAILY [facility] Last Admin: 09/30/18 09:08 Dose: 10 mg Potassium Chloride (K-Dur) 40 meq PO ASDIR PRN PRN Reason: FOR SERUM K+ 2.5 - 3.5 Last Admin: 09/27/18 11:32 Dose: 40 meq Potassium Chloride (Klor-Con) 40 meq PER TUBE ASDIR PRN PRN Reason: FOR SERUM K+ 2.5-3.5 Last Admin: 09/22/18 09:22 Dose: 40 meq Psyllium Hydrophilic Mucilloid (Metamucil) 1 pk PER TUBE BID [facility] Last Admin: 09/30/18 09:09 Dose: 1 pk Quetiapine Fumarate (Seroquel) 50 mg PER TUBE HS [facility] Last Admin: 09/29/18 21:10 Dose: 50 mg Scopolamine (Transderm Scop) 1.5 mg TD Q3D [facility] Last Admin: 09/29/18 07:51 Dose: 1.5 mg Sodium Chloride ([place] Nasal [place] 0.65%) 0 ml EA NARE QIDPRN PRN PRN Reason: Nasal Congestion Sodium Chloride (Flush - Normal Saline) 10 ml IVF Q12HR [facility] Last Admin: 09/30/18 09:09 Dose: 10 ml Sodium Chloride (Flush - Normal Saline) 10 ml IVF PRN PRN PRN Reason: Saline Flush Last Admin: 09/14/18 10:37 Dose: 10 ml Thiamine HCl (Thiamine) 100 mg PER TUBE DAILY [facility] Last Admin: 09/30/18 09:08 Dose: 100 mg Throat Lozenges (Cepastat Lozenges) 1 john PO Q2H PRN PRN Reason: Sore Throat Zolpidem Tartrate (Ambien) 5 mg PO 2100 [facility] Stop: 10/14/18 21:01
[2018-09-30 13:00] VITALS: BMI 33.3
[2018-09-30] MEDS ORDERED: Melatonin 3 MG TAB PO SCH (21:00)
[2018-09-30] MEDS ORDERED: Zolpidem Tartrate 5 MG TAB PO SCH (21:00)
[2018-09-30] MEDS: Atorvastatin Calcium 40 MG TAB PO SCH (21:32)
[2018-10-01 04:48] LABS: #Basophils 0.1 thou/uL (0.0-0.2); #Eosinphils 0.2 thou/uL (0.0-0.7); #Lymphocytes 2.1 thou/uL (1.20-3.40); #Monocytes 1.1 thou/uL (0.11-0.59); #Neutrophils 9.2 thou/uL (1.40-6.50); %Basophils 0.5 % (0.0-1.0); %Eosinophils 1.9 % (0.0-10.0); %Lymphocytes 16.5 % (21.0-51.0); %Monocytes 8.4 % (0.0-10.0); %Neutrophils 72.8 % (42.0-75.0); Hemoglobin 9.4 g/dL (14.0-18.0); Mean Corpuscular HGB CONC 30.9 g/dL (32.0-36.0); Mean Corpuscular Hemoglobin 29.4 pg (27.0-31.0); Mean Corpuscular Volume 95.1 fL (78.0-98.0); Mean Platelet Volume 7.2 fL (7.4-10.4); Platelet Count 403 thou/uL (130-400); RBC Distribution Width 13.2 % (11.5-14.5); White Blood Cell (WBC) Count 12.6 thou/uL (4.8-10.8)
[2018-10-01 05:05] LABS: Anion Gap 12 mmol/L (10-20); BUN (Urea Nitrogen) 20 mg/dL (8.4-25.7); Calc. Creatinine Clearance 147 mL/min (70-130); Calcium 9.6 mg/dL (7.8-10.44); Carbon Dioxide 27 mmol/L (23-31); Chloride 113 mmol/L (98-107); Estimated GFR-MDRD Greater than 90; Glucose 125 mg/dL (80-115); Potassium 3.4 mmol/L (3.5-5.1); Sodium 149 mmol/L (136-145)
--- NOTE | 2018-10-01 08:18 | PRG ---
DATE OF SERVICE: 10/01/2018 He is up in a chair. He is on trach collar this morning, overall looks good. PHYSICAL EXAMINATION: VITAL SIGNS: Temperature 99.8 with a T-max of 100.7, pulse 75, respiratory rate 25, O2 saturation 98 %, 24-hour intake 1504, output 1815. Weight 246 pounds. HEENT: Unremarkable. NECK: Trach in good position. LUNGS: Fairly clear anteriorly. CARDIOVASCULAR: S1, S2 regular. ABDOMEN: Soft. EXTREMITIES: No edema. LABORATORY DATA: White blood cell count 12.6, hematocrit 38.4, platelet count 403. Sodium 149, pota ssium 3.4, chloride 113, CO2 27, BUN 20, creatinine 0.7, glucose 125. ASSESSMENT: 1. Respiratory failure requiring intermittent mechanical ventilation - has been tolerating T-collar now that he has a trach in place. 2. History of bilateral below the elbow amputations after being electrocuted. 3. Alcohol abuse with severe withdrawal at the time of admission. 4. Disrupted sleep-wake cycle. PLAN: 1. Plan LTAC placement. 2. Continue T-collar trials as tolerated. 3. Continue Ambien and melatonin at night in an attempt to improve his sleep-wake cycle. 4. Order [place] valve to see if he can speak. 5. Temperature is slightly elevated. His central line is not that old and IV access is very difficu lt on the patient. He is currently not receiving antibiotics. I will go ahead and have him recultur ed and we will treat as needed.
[2018-10-01] MEDS: Amlodipine 5 MG TAB PER TUBE SCH (09:57)
[2018-10-01] MEDS: Lisinopril 20 MG TAB PER TUBE SCH (10:00)
[2018-10-01] MEDS: Enoxaparin Sodium 40 MG/0.4 ML SYRINGE SC SCH (10:01)
[2018-10-01] MEDS: Pantoprazole 40 MG GRANULES PACKET PER TUBE SCH (10:01)
[2018-10-01] MEDS: PARoxetine 20 MG TAB PO SCH (10:01)
[2018-10-01] MEDS: Metamucil PACK PER TUBE SCH (10:07)
[2018-10-01] MEDS: Lorazepam 2 MG/ML VIAL SLOW IVP PRN ×2 (11:13→16:29)
[2018-10-01 14:45] VITALS: BP 138/63
[2018-10-01 15:47] VITALS: TEMP 99.3
[2018-10-01] MEDS: Acetaminophen 325 MG TAB PO PRN (16:28)
== END 2018-10-01 17:55 | disposition critical access hospital (66) | DRG 4 ==
LOC: ERS 05:11 → T4-A 11:17 → CCU 09-13 01:14
PROVIDERS: ADMIT Internal Medicine; ATTEND Internal Medicine
PROC: 0BH17EZ Insertion of Endotracheal Airway into Trachea, Via Natural or Artificial Opening (ICD-10-PCS; 2018-09-13)
PROC: 5A12012 Performance of Cardiac Output, Single, Manual (ICD-10-PCS; 2018-09-13)
PROC: 06HY33Z Insertion of Infusion Device into Lower Vein, Percutaneous Approach (ICD-10-PCS; 2018-09-13)
PROC: 0BC78ZZ Extirpation of Matter from Left Main Bronchus, Via Natural or Artificial Opening Endoscopic (ICD-10-PCS; 2018-09-20)
PROC: 0BC38ZZ Extirpation of Matter from Right Main Bronchus, Via Natural or Artificial Opening Endoscopic (ICD-10-PCS; 2018-09-20)
PROC: 02H733Z Insertion of Infusion Device into Left Atrium, Percutaneous Approach (ICD-10-PCS; 2018-09-22)
PROC: 0B114F4 Bypass Trachea to Cutaneous with Tracheostomy Device, Percutaneous Endoscopic Approach (ICD-10-PCS; principal; 2018-09-28)
PROC: 5A1955Z Respiratory Ventilation, Greater than 96 Consecutive Hours (ICD-10-PCS; 2018-09-28)
PROC: 0DH64UZ Insertion of Feeding Device into Stomach, Percutaneous Endoscopic Approach (ICD-10-PCS; 2018-09-28)
PROC: 3E0G76Z Introduction of Nutritional Substance into Upper GI, Via Natural or Artificial Opening (ICD-10-PCS; 2018-09-28)
DX: T83.511A Infection and inflammatory reaction due to indwelling urethral catheter, initial encounter (principal); A41.9 Sepsis, unspecified organism; J96.21 Acute and chronic respiratory failure with hypoxia; J69.0 Pneumonitis due to inhalation of food and vomit; I46.9 Cardiac arrest, cause unspecified; J81.0 Acute pulmonary edema; T17.590A Other foreign object in bronchus causing asphyxiation, initial encounter; G40.89 Other seizures; E87.2 Acidosis; N17.9 Acute kidney failure, unspecified; I24.8 Other forms of acute ischemic heart disease; I42.9 Cardiomyopathy, unspecified; F10.239 Alcohol dependence with withdrawal, unspecified; E87.0 Hyperosmolality and hypernatremia; I10 Essential (primary) hypertension; E78.5 Hyperlipidemia, unspecified; E11.9 Type 2 diabetes mellitus without complications; Z79.84 Long term (current) use of oral hypoglycemic drugs; E66.9 Obesity, unspecified; N40.1 Benign prostatic hyperplasia with lower urinary tract symptoms; F32.9 Major depressive disorder, single episode, unspecified; F41.9 Anxiety disorder, unspecified; K21.9 Gastro-esophageal reflux disease without esophagitis; Z89.212 Acquired absence of left upper limb below elbow; Z89.211 Acquired absence of right upper limb below elbow; Z96.653 Presence of artificial knee joint, bilateral; Z72.0 Tobacco use; G25.81 Restless legs syndrome; E86.0 Dehydration; E83.42 Hypomagnesemia; E87.70 Fluid overload, unspecified; E87.6 Hypokalemia; F28 Other psychotic disorder not due to a substance or known physiological condition
CPT/HCPCS: 36415; 36416; 51703; 70450; 71045; 80048; 80053; 80076; 80202; 81003; 81015; 82140; 82805; 83605; 83735; 84100; 84145; 84146; 84484; 85025; 87040; 87086; 93005; 93010; 93306; 94002; 94003; 94640; 95816; 95819; 96361; 96365; 96375; A4216; C9113; G8978-GP-CM; G8979-GP-CL; J0131; J0360; J0696; J1642; J1650; J1885; J1940; J1953; J1956; J2001; J2060; J2185; J2543; J2704; J2765; J3010; J3370; J3411; J3475; J3480; J7042; J7050; J7620